=== PATIENT | female | born 1950 | race Caucasian/White ===

== ENCOUNTER 2017-06-11 04:31 | Emergency (ER) | payer OTHER ==
[~2017-06-11] VITALS: Ht 165.1 cm; Wt 113.4 kg
[~2017-06-11 04:31] MED LIST: ACET325C PO; CHOL100013 PO; CHOL10003 PO; FAMO20TA5 PO; FURO40TA4 PO; GLIM1TAB2 PO; HYDR-2868 PO; INSU100V13 SQ; INSU200I4 SQ; LEVO50TA5 PO; LINA5TAB4 PO; MAGN400O7 PO; MAGN400T22 PO; METF500T4 PO; MIRT15TA PO; MULT-208 PO; NICO2GUM42 AD; NYST15CR TP; POLY17PO29 PO; POTA40LI3 PEG; QUET100T4 PO; QUET300T5 PO; QUET400T PO; SENN8.6T99 PO; VALP250S PO; VENTOLIN HFA18 GM INH; [UNRECOGNIZED DRUG - OTHER]
[2017-06-11] MEDS ORDERED: HYDROmorphone 2 MG/ML VIAL IV/SQ PRN (04:45)
[2017-06-11] MEDS ORDERED: METOCLOPRAMIDE HCL 10 MG/2 ML VIAL. IV ONE (04:45)
[2017-06-11] MEDS ORDERED: ONDANSETRON PF 4 MG/2 ML VIAL. IV ONE (04:45)
[2017-06-11] MEDS ORDERED: diphenhydrAMINE 50 MG/ML VIAL IVP ONE (04:45)
--- NOTE | 2017-06-11 04:47 | PHYS DOC ---
Past Medical History Past Medical History: Diabetes-Type II, Hypothyroid, Schizophrenia Additional Past Medical Histor: chronic dvts, obesity, osteoporosis, ams, Past Surgical History: Other Additional Past Surgical Histo: unknown Alcohol Use: None Drug Use: None Social History Narrative: Resides at [facility] Adult General Chief Complaint Chief Complaint: MECHANICAL FALL HPI HPI Patient is a 66 year old female who presents with fall this am. She has had a recent right THR but UNKNOWN WHERE AND WHEN THE REPAIR OCCURRED (it did not occur at [facility]). She also has a right ankle sprain (recently placed in a splint). She got up and fell on her right side. She has right hip wound with chronic draining from the surgical site (per [facility] right). She denies hitting her head; no LOC. Followed by Dr Bridger Knight at Facility. Review of Systems Review of Systems Constitutional: Denies fever or chills Respiratory: Denies cough or shortness of breath GI: Denies abdominal pain, nausea, vomiting, bloody stools or diarrhea : Denies dysuria or hematuria Musculoskeletal: POS right hip pain Neurologic: Denies headache, focal weakness or sensory changes Current Medications Current Medications Current Medications Medications (Trade) Dose Ordered Sig/Zane Start Time Stop Time Status Last Admin Dose Admin Diphenhydramine HCl (Benadryl) 25 mg 1X ONCE 06/11/17 04:45 06/11/17 05:03 DC Hydromorphone HCl (Dilaudid) 0.5 mg PRN Q15MIN PRN 06/11/17 04:45 06/11/17 05:03 DC Metoclopramide HCl (Reglan) 10 mg 1X ONCE 06/11/17 04:45 06/11/17 05:03 DC Ondansetron HCl (Zofran) 4 mg 1X ONCE 06/11/17 04:45 06/11/17 05:16 DC Sodium Chloride 1,000 ml @ 1,000 mls/hr Q1H 06/11/17 05:00 06/11/17 05:16 DC Allergies Allergies Allergies Coded Allergies Type Severity Reaction Last Updated Verified Penicillins Allergy Intermediate 05/18/16 No lithium Allergy Intermediate 05/18/16 Yes Physical Exam Physical Exam Constitutional: Well developed, well nourished, no acute distress, non-toxic appearance. HENT: Normocephalic, atraumatic, bilateral external ears normal, oropharynx moist, no oral exudates, nose normal. Eyes: PERRLA, EOMI, conjunctiva normal, no discharge. Neck: Normal range of motion, no tenderness, supple, no stridor. Cardiovascular:Heart rate regular rhythm, no murmur Lungs & Thorax: Bilateral breath sounds clear to auscultation Abdomen: Bowel sounds normal, soft, no tenderness, no masses, no pulsatile masses. Skin: Warm, dry, no erythema, no rash. Back: No tenderness, no CVA tenderness. Extremities:. distal portion of incision is healing by secondary intention; no active drainage; no bleeding. Pain with movement to the leg but NVI distally. Chronic edema. Neurologic: Alert and oriented X 3, normal motor function, normal sensory function, no focal deficits noted. Current Patient Data Vital Signs Vital Signs Date Time Temp Pulse Resp B/P (MAP) Pulse Ox O2 Delivery O2 Flow Rate FiO2 06/11/17 04:31 98.4 105 18 130/55 (80) 95 Room Air 98.4 Radiology/Procedures Radiology/Procedures XR pelvis/femur: Impression: 1. Right hip hemiarthroplasty without hardware complication. 2. Interval increase in moderate heterotopic ossification around the right hip. 3. An obvious fracture line is not identified however examination is limited due to osseous demineralization. If there is clinical suspicion for fracture, follow-up MRI of the right hip can be considered. Course & Med Decision Making Course & Med Decision Making Evaluated patient. (NOTE lab and meds inadvertently ordered on this patient erroneously and cancelled BEFORE completing). Xray ordered and pending. Care turned over at shift change to Dr Ovalle. XRay negative. Pt is nonambulatory per records at baseline. Will dc back to shelter, f/u with pcp Adam Disclaimer Dragon Disclaimer This electronic medical record was generated, in whole or in part, using a voice recognition dictation system. Departure Departure Impression: Primary Impression: Fall Disposition: 01 HOME, SELF-CARE Condition: GOOD Referrals: DOUG KNIGHT (PCP) Problem Qualifiers Primary Impression: Fall Encounter type: initial encounter Qualified Codes: W19.XXXA - Unspecified fall, initial encounter YENIFER COLINDRES MD Jun 11, 2017 04:47 EMELIA GOMES MD Jun 11, 2017 07:56
[2017-06-11] MEDS ORDERED: IV NORMAL SALINE 1000ML BAG 1,000 ML IV SCH (05:00)
--- NOTE | 2017-06-11 07:16 | RAD ---
Examination: Frontal view the pelvis and 2 views of the right femur History: History of fall, pain. Comparison: 09/08/2016. Findings: Right femoral prosthesis is identified within the acetabulum. There is moderate heterotopic ossification identified around the right hip joint which has increased since prior exam. An obvious fracture line is not identified however the examination is limited due to osseous demineralization. Impression: 1. Right hip hemiarthroplasty without hardware complication. 2. Interval increase in moderate heterotopic ossification around the right hip. 3. An obvious fracture line is not identified however examination is limited due to osseous demineralization. If there is clinical suspicion for fracture, follow-up MRI of the right hip can be considered.
[2017-06-11 09:51] VITALS: BP 149/65
== END 2017-06-11 09:58 | disposition home or self-care (01) ==
LOC: ER 04:31
DX: L76.82 Other postprocedural complications of skin and subcutaneous tissue (principal); F20.9 Schizophrenia, unspecified; E03.9 Hypothyroidism, unspecified; E11.9 Type 2 diabetes mellitus without complications; W18.39XA Other fall on same level, initial encounter; Z96.641 Presence of right artificial hip joint; Y93.89 Activity, other specified; Y99.8 Other external cause status; Y92.89 Other specified places as the place of occurrence of the external cause
CPT/HCPCS: 72170; 73552; 99284

== ENCOUNTER 2017-08-23 12:09 | Inpatient (IN) | payer OTHER ==
[~2017-08-23] VITALS: Ht 165.1 cm; Wt 93.9 kg
[2017-08-23] MEDS ORDERED: IV NORMAL SALINE 1000ML BAG 1,000 ML IV SCH ×2 (12:19→15:15)
[2017-08-23] MEDS ORDERED: IPRATRPIUM/ALBUTEROL 0.5/2.5MG 3 ML NEBU. NEB ONE (12:30)
[2017-08-23] MEDS ORDERED: methylPREDNISolone SOD SUCC PF 125 MG/2 ML VIAL. IV ONE (12:30)
[2017-08-23] MEDS ORDERED: ALBUTEROL SULFATE 2.5 MG/3 ML NEBU. CONT NEB ONE (12:30)
--- NOTE | 2017-08-23 12:37 | PHYS DOC ---
Past Medical History Past Medical History: CHF, Constipation, COPD, Depression, Diabetes-Type II, DVT, GERD, Hypertension, Hypothyroid, Schizophrenia Additional Past Medical Histor: chronic dvts, obesity, osteoporosis, ams, PSEUDOBULBAR AFFECT Past Surgical History: Hip Replacement, Other Additional Past Surgical Histo: unknown Smoking: Cigarettes, Less than 1pk/day Alcohol Use: None Drug Use: None Adult General Chief Complaint Chief Complaint: NEURO SYMPTOMS/DEFICITS [facility] HPI Is a pleasant 67-year-old female who is coming from her correction because of question will slurred state speech and altered mental status. Patient was last seen in her normal state at 9:30 AM this morning. Patient presents after smoking outside about noon with question will slurred speech and confusion. Patient at this time denies any headache, denies any focal neurologic deficit but is very difficult to understand secondary to the slurring of her speech. She is able to follow commands, and interactive at this point she denies any chest pain she seems tachypnea and short of breath but denies any progressive shortness of breath. She does complain of bilateral lower leg pain and swelling specifically in the right lower leg. Patient denies any fevers, chills, URI symptoms, changes in medications. Patient denies any nausea, vomiting, diarrhea or UTI symptoms. She further denies any change in medications or recent antibiotic use. Differential diagnosis: Acute myocardial ischemia, heart failure, cardiac tamponade, bronchospasm, pulmonary embolism, pneumothorax, pulmonary infection i.e. bronchitis or pneumonia, upper airway obstruction, anaphylaxis, aspiration , psychogenic, pulmonary contusion, toxidrome, pneumomediastinum, noncardiogenic pulmonary edema or ARDS, COPD, tuberculosis, cystic fibrosis, asthma, high altitude pulmonary edema, valvular dysfunction, cardiac dysrhythmia , stroke, neuromuscular diseases like myasthenia gravis gravis, ALS, Guillain- Kimball syndrome, metabolic acidosis to include diabetic ketoacidosis, sepsis, and obstructive disorders like massive obesity, her hypoxia especially being outside not under oxygen and smoking they've contributed to her slurred speech and altered mental status. Review of Systems Review of Systems Constitutional: Denies fever or chills [] Eyes: Denies change in visual acuity HENT: Denies nasal congestion or sore throat [] Respiratory: Does have a nonproductive cough and shortness of breath. Cardiovascular: No additional information not addressed in HPI [] GI: Denies abdominal pain, nausea, vomiting, bloody stools or diarrhea [] : Denies dysuria or hematuria [] Musculoskeletal: Denies back pain she complains of lower external pain and swelling Integument: Denies rash or now has redness to her lower legs Neurologic: Denies headache, but does complain generalized weakness and difficulty speaking Endocrine: Denies polyuria or polydipsia [] All other systems were reviewed and found to be within normal limits, except as documented in this note. Current Medications Current Medications Current Medications Medications (Trade) Dose Ordered Sig/Zane Start Time Stop Time Status Last Admin Dose Admin Albuterol Sulfate (Ventolin Neb Soln) 10 mg 1X ONCE 08/23/17 12:30 08/23/17 12:31 DC 08/23/17 12:54 10 MG Albuterol/ Ipratropium (Duoneb) 3 ml 1X ONCE 08/23/17 12:30 08/23/17 12:31 DC 08/23/17 12:54 3 ML Methylprednisolone Sodium Succinate (SOLU-Medrol 125MG VIAL) 125 mg 1X ONCE 08/23/17 12:30 08/23/17 12:31 DC 08/23/17 12:40 125 MG Sodium Chloride 1,000 ml @ 100 mls/hr Q10H 08/23/17 12:19 08/23/17 22:18 08/23/17 12:40 100 MLS/HR Allergies Allergies Allergies Coded Allergies Type Severity Reaction Last Updated Verified Penicillins Allergy Intermediate 05/18/16 No lithium Allergy Intermediate 05/18/16 Yes Physical Exam Physical Exam The vital signs recorded on the chart patient to be tachypnea not hypoxic but she is hypertensive. Constitutional: She is in a disheveled state morbidly obese having difficulty breathing with pale skin nondiaphoretic HENT: Normocephalic, atraumatic, bilateral external ears normal, oropharynx is dry with poor dentition significant nicotine tobacco staining some her teeth and lips.no Oral exudates, nose normal. [] Eyes: PERRLA, EOMI, conjunctiva normal, no discharge. [] Neck: Normal range of motion, no tenderness, supple, no stridor. [] Cardiovascular:Heart rate regular rhythm, no murmur [] Lungs & Thorax: She has decreased breath sounds bilaterally with coarse rhonchi at the bases and wheezes throughout. She has no recurrent retractions or accessory muscle use. Abdomen: Bowel sounds normal, soft, no tenderness, no masses, no pulsatile masses. [] Skin: She has significant erythema specifically to the right lower leg with some soft tissue swelling +2 pitting edema and tenderness to palpation. Back: Specific CVA tenderness. Extremities: She has marked tenderness to palpation over the lower external is bilaterally right greater than left. Neurologic: A stroke scale below. Psychologic: She is affect is somewhat blunted she is somewhat slow to respond all most seems sedate secondary to possible medications Since initial stroke score based on weakness in upper and lower extremities and difficulty understanding spoken words is a 9 1a. Level of consciousness: 0 = Alert; keenly responsive. 1 = Not alert; but arousable by minor stimulation to obey, answer, or respond. 2 = Not alert; requires repeated stimulation to attend, or is obtunded and requires strong or painful stimulation to make movements (not stereotyped). 3 = Responds only with reflex motor or autonomic effects or totally unresponsive , flaccid, and areflexic. 1b. LOC questions: 0 = Answers both questions correctly. 1 = Answers one question correctly. 2 = Answers neither question correctly. 1c. LOC commands: 0 = Performs both tasks correctly. 1 = Performs one task correctly. 2 = Performs neither task correctly. 2. Best gaze: 0 = Normal. 1 = Partial gaze palsy; gaze is abnormal in one or both eyes, but forced deviation or total gaze paresis is not present. 2 = Forced deviation, or total gaze paresis not overcome by the oculocephalic maneuver. 3. Visual: 0 = No visual loss. 1 = Partial hemianopia. 2 = Complete hemianopia. 3 = Bilateral hemianopia (blind including cortical blindness). 4. Facial palsy: 0 = Normal symmetrical movements. 1 = Minor paralysis (flattened nasolabial fold, asymmetry on smiling). 2 = Partial paralysis (total or near-total paralysis of lower face). 3 = Complete paralysis of one or both sides (absence of facial movement in the upper and lower face). 5. Motor arm: 0 = No drift; limb holds 90 (or 45) degrees for full 10 seconds. 1 = Drift; limb holds 90 (or 45) degrees, but drifts down before full 10 seconds ; does not hit bed or other support. 2 = Some effort against gravity; limb cannot get to or maintain (if cued) 90 ( or 45) degrees, drifts down to bed, but has some effort against gravity. 3 = No effort against gravity; limb falls. 4 = No movement. UN = Amputation or joint fusion, explain: 5a. Left arm 5b. Right arm 4 pts 6. Motor le = No drift; leg holds 30-degree position for full 5 seconds. 1 = Drift; leg falls by the end of the 5-second period but does not hit bed. 2 = Some effort against gravity; leg falls to bed by 5 seconds, but has some effort against gravity. 3 = No effort against gravity; leg falls to bed immediately. 4 = No movement. UN = Amputation or joint fusion, explain: 6a. Left leg 6b. Right leg 4pts 7. Limb ataxia: 0 = Absent. 1 = Present in one limb. 2 = Present in two limbs. UN = Amputation or joint fusion 8. Sensory: 0 = Normal; no sensory loss. 1 = Xqde-ly-fqzaidps sensory loss; patient feels pinprick is less sharp or is dull on the affected side; or there is a loss of superficial pain with pinprick , but patient is aware of being touched. 2 = Severe to total sensory loss; patient is not aware of being touched in the face, arm, and leg. 9. Best language: 0 = No aphasia; normal. 1 = Pbkn-uy-iyejokin aphasia; some obvious loss of fluency or facility of comprehension, without significant limitation on ideas expressed or form of expression. Reduction of speech and/or comprehension, however, makes conversation about provided materials difficult or impossible. For example, in conversation about provided materials, examiner can identify picture or naming card content from patient's response. 2 = Severe aphasia; all communication is through fragmentary expression; great need for inference, questioning, and guessing by the listener. Range of information that can be exchanged is limited; listener carries burden of communication. Examiner cannot identify materials provided from patient response. 3 = Mute, global aphasia; no usable speech or auditory comprehension. 10. Dysarthria: 0 = Normal. 1 = Darb-xq-evtlqivm dysarthria; patient slurs at least some words and, at worst , can be understood with some difficulty. 2 = Severe dysarthria; patient's speech is so slurred as to be unintelligible in the absence of or out of proportion to any dysphasia, or is mute/anarthric. UN = Intubated or other physical barrier, explain: 11. Extinction and inattention (formerly neglect): 0 = No abnormality. 1 = Visual, tactile, auditory, spatial, or personal inattention or extinction to bilateral simultaneous stimulation in one of the sensory modalities. 2 = Profound rasheed-inattention or extinction to more than one modality; does not recognize own hand or orients to only one side of space. Current Patient Data Vital Signs Vital Signs Date Time Temp Pulse Resp B/P (MAP) Pulse Ox O2 Delivery O2 Flow Rate FiO2 08/23/17 12:58 100 Nasal Cannula 3.0 08/23/17 12:15 97.6 86 20 167/69 (101) 97.6 Lab Values Laboratory Tests Test 08/23/17 12:18 08/23/17 12:30 Glucose (Fingerstick) 215 mg/dL (70-99) H White Blood Count 6.3 x10^3/uL (4.0-11.0) Red Blood Count 3.56 x10^6/uL (3.50-5.40) Hemoglobin 9.6 g/dL (12.0-15.5) L Hematocrit 31.1 % (36.0-47.0) L Mean Corpuscular Volume 87 fL (79-100) Mean Corpuscular Hemoglobin 27 pg (25-35) Mean Corpuscular Hemoglobin Concent 31 g/dL (31-37) Red Cell Distribution Width 18.1 % (11.5-14.5) H Platelet Count 260 x10^3/uL (140-400) Erythrocyte Sedimentation Rate 26 (0-25) H Prothrombin Time 13.7 SEC (11.7-14.0) Prothrombin Time INR 1.1 (0.8-1.1) PTT 36 SEC (24-38) Sodium Level 140 mmol/L (136-145) Potassium Level 4.5 mmol/L (3.5-5.1) Chloride Level 103 mmol/L (98-107) Carbon Dioxide Level 31 mmol/L (21-32) Anion Gap 6 (6-14) Blood Urea Nitrogen 27 mg/dL (7-20) H Creatinine 1.4 mg/dL (0.6-1.0) H Estimated GFR (Cockcroft-Gault) 37.6 Glucose Level 222 mg/dL (70-99) H Lactic Acid Level 2.0 mmol/L (0.4-2.0) Calcium Level 10.0 mg/dL (8.5-10.1) Magnesium Level 2.1 mg/dL (1.8-2.4) Total Bilirubin 0.2 mg/dL (0.2-1.0) Direct Bilirubin 0.1 mg/dL (0.0-0.2) Aspartate Amino Transferase (AST) 5 U/L (15-37) L Alanine Aminotransferase (ALT) 11 U/L (14-59) L Alkaline Phosphatase 100 U/L (46-116) Creatine Kinase 16 U/L (26-192) L Creatine Kinase MB (Mass) < 0.5 ng/mL (0.0-3.6) Creatine Kinase MB Relative Index % (0-4) Troponin I Quantitative < 0.017 ng/mL (0.000-0.055) C-Reactive Protein, Quantitative 50.0 mg/L (0-3.3) H XJ-Iwb-N-Type Natriuretic Peptide 637 pg/mL (0-124) H Total Protein 7.5 g/dL (6.4-8.2) Albumin 2.8 g/dL (3.4-5.0) L Lipase 53 U/L (73-393) L Thyroid Stimulating Hormone (TSH) 2.253 uIU/mL (0.358-3.74) Laboratory Tests 08/23/17 12:30 Laboratory Tests 08/23/17 12:30 EKG EKG [] Radiology/Procedures Radiology/Procedures [] [facility] [address] [place] [address] IMAGING REPORT Signed PATIENT: DO SHI ACCOUNT: [id number] : 1950 LOCATION: ER AGE: 67 SEX: F EXAM STATUS: REG ER ORD. PHYSICIAN: AYUSH GRAY MD REASON: ams PROCEDURE: PORTABLE CHEST 1V Examination: Single frontal view the chest History: History of altered mental status. Comparison: 09/08/2016. Findings: Low lung volumes and technique accentuates heart size and pulmonary vascularity. Mild airspace opacity identified in the right lung base likely atelectasis or infiltrate. Impression: Mild airspace opacity identified in the right lung base likely atelectasis or infiltrate. Follow-up to resolution. DICTATED and SIGNED BY: ESTEBAN MARROQUIN MD DATE: 08/23/17 1300 CC: AYUSH GRAY MD; DOUG KNIGHT ~ Course & Med Decision Making Course & Med Decision Making Pertinent Labs and Imaging studies reviewed. (See chart for details) []Initially presents as a diabetic with altered mental status and question of slurred speech. There is a questionable timetable of 9:30 versus 11:30. Given the fact that no one actually saw her last well until 9:30 AM this morning that' s the starting point of our timetable. Patient is Imer at the 3 hour window almost upon arrival. Patient's neurologic status makes it somewhat difficult presented to ascertain answers to specific questions and somewhat difficult examination upon arrival. Patient's stroke scale initially was 9 based on weakness in the upper and lower external is which may be from debility and generalized fatigue or cannot be ruled out. Stroke evaluation was initiated. Because patient was mildly tachypnea and wheezing on exam patient also had blood cultures, lactic acid completed. I we'll aggressively treat her COPD and respiratory compromise which may contribute to her symptoms. My shortness breath differential was considered upon arrival as listed in the history. KG completed upon arrival read by me at 12:28 PM demonstrates heart rate of 80 there is a P-wave every QRS [place] interval is short at 90 there is a perceivable delta wave although patient's QRS width is 98 QTC is 419 is normal. We initially considered TPN arrival patient patient's story but unfortunately not having a firm time of presentation patient presented at the 3 hour window. She did not have have any other exclusion criteria listed below: TPA exclusion criteria include Inclusion criteria include: Onset of symptoms less than 3 hours from the beginning of treatment diagnosis of an ischemic stroke causing measurable neurologic deficit Age or with an 19 Exclusion criteria: Recent intracranial or spinal surgery or significant head trauma or prior stroke within the prior 3 months Symptoms suggestive of a subarachnoid hemorrhage History of present intercranial hemorrhage, intracranial neoplasm or AV malformation or aneurysm Active internal bleeding Sustained systolic blood pressure greater than 185 systolic, 110 diastolic Blood glucose constitutional less than 50 Active bleeding diathesis Arterial puncture at a noncompressible site with the previous [address] demonstrates acute ischemic infarct evidence of early edema, mass effect, large infarct Patient or family refusal Relative exclusion criteria include: IV thrombolyzes at nights at Hospital Impression acute myocardial infarct with the previous 3 months or acute pericarditis Rapidly improving or minor symptoms clearing spontaneously Known or suspected Seizure at onset with postictal residual neurologic impairments Life expectancy less than 1 year or severe comorbidities The care team was unable to determine eligibility Major surgery or serious trauma within the previous 14 days Subacute bacterial endocarditis Recent gastrointestinal or UTI hemorrhage within the last 21 days Visit was unclear about patient's time of arrival and time of symptom onset and given her history and unreliable exam patient was excluded from TPA consideration. Patient tells me that their symptoms given during CC are improved. We reviewed labs and radiology reports with at the bedside and patient's chest x-ray looks like it has an infiltrate at the right lower lung. Patient has improved lung sounds and is mentating better now with treatments. I believe patient may be sending with mild hypoxia and increased metabolic demand with a lung infection. Her lactic acid is normal, her CBC is unremarkable, blood cultures been completed though and she'll be given a course of steroids, antibiotics and fluids. She is not septic at this time but given altered mental status she may be considered septic saw I will treat her appropriately with respiratory for source of infection. She will receive Rocephin and azithromycin Tnt Powder Worker note: Dr. Wheeler Tnt Powder Worker called at of the service paged at 2:15 PM Consult called back at 2:15 PM Discussed the case I presented and they agreed with admission. Time of acceptance 2:15 pm patient does demonstrate some slight renal insufficiency with BUNs of 27 and cranial 1.4. patient MS has improved, patient is no longer dyspneic, patient is not febrile. Dragon Disclaimer Dragon Disclaimer This electronic medical record was generated, in whole or in part, using a voice recognition dictation system. Departure Departure Impression: Primary Impression: COPD exacerbation Additional Impressions: Right lower lobe pneumonia Generalized weakness Altered mental status Disposition: ADMITTED INPATIENT Admitting Physician: Donnie Wheeler Condition: GUARDED Referrals: DOUG KNIGHT (PCP) Problem Qualifiers AYUSH GRAY MD Aug 23, 2017 12:37
[2017-08-23 12:46] LABS: HEMATOCRIT 31.1 % (36.0-47.0); HEMOGLOBIN 9.6 g/dL (12.0-15.5); RED BLOOD COUNT 3.56 x10^6/uL (3.50-5.40); RED CELL DISTRIBUTION WIDTH 18.1 % (11.5-14.5); WHITE BLOOD COUNT 6.3 x10^3/uL (4.0-11.0)
--- NOTE | 2017-08-23 12:51 | EKG ---
[facility] [address] [place] [address] Test Date: 2017-08-23 Test Time: 12:20:18 Pat Name: DO SHI Department: Room: Gender: F Court Bailiff: : 1950 Requested By: AYUSH GRAY Order Number: [id number] Reading MD: Ck Matamoros MD Measurements Intervals Central Rate: 80 P: -139 RI: 90 QRS: 29 QRSD: 98 T: 51 QT: 360 QTc: 419 Interpretive Statements SINUS RHYTHM NON-SPECIFIC ST/T CHANGES Electronically Signed On 08-30-2017 14:37:49 CIGAR MAKING MACHINE SUPERVISOR by Ck Matamoros MD
[2017-08-23 12:55] LABS: CREATININE 1.4 mg/dL (0.6-1.0); GFR 37.6; POTASSIUM 4.5 mmol/L (3.5-5.1)
--- NOTE | 2017-08-23 12:56 | RAD ---
CT head without contrast History: CT code stroke, slurred speech. Comparison: 05/21/2016. Procedure: Axial images are obtained of the head from the skull base through the vertex without IV contrast. Findings: Mild bilateral periventricular white matter hypodensities likely chronic small vessel ischemic disease. The ventricles and sulci are normal for the patient's age. No mass-effect, intracranial mass, midline shift, hemorrhage or obvious acute infarction is identified. Basilar cisterns are patent. Bone windows demonstrate no significant calvarial abnormality. The visualized paranasal sinuses appear clear. Impression: 1. No acute intracranial process. Report called to ER physician at time of dictation. PQRS Compliance Statement: One or more of the following individualized dose reduction techniques were utilized for this examination: 1. Automated exposure control 2. Adjustment of the mA and/or kV according to patient size 3. Use of iterative reconstruction technique
[2017-08-23 13:01] LABS: ALBUMIN 2.8 g/dL (3.4-5.0); DIRECT BILIRUBIN 0.1 mg/dL (0.0-0.2); MAGNESIUM 2.1 mg/dL (1.8-2.4); TOTAL BILIRUBIN 0.2 mg/dL (0.2-1.0); TOTAL PROTEIN 7.5 g/dL (6.4-8.2)
--- NOTE | 2017-08-23 13:06 | RAD ---
Examination: Single frontal view the chest History: History of altered mental status. Comparison: 09/08/2016. Findings: Low lung volumes and technique accentuates heart size and pulmonary vascularity. Mild airspace opacity identified in the right lung base likely atelectasis or infiltrate. Impression: Mild airspace opacity identified in the right lung base likely atelectasis or infiltrate. Follow-up to resolution.
[2017-08-23 13:10] LABS: INR 1.1 (0.8-1.1); PROTHROMBIN TIME PATIENT 13.7 SEC (11.7-14.0)
[2017-08-23 13:12] LABS: CREATINE KINASE 16 U/L (26-192)
[2017-08-23 13:13] LABS: CKMB MASS < 0.5 ng/mL (0.0-3.6)
--- NOTE | 2017-08-23 14:48 | RAD ---
Bilateral lower extremity venous ultrasound, 08/23/2017: History: Leg pain and swelling Duplex evaluation of the deep veins in the lower extremities was performed including grayscale, color-flow and spectral Doppler analysis. The femoral and popliteal veins demonstrate normal compressibility and normal responses to distal augmentation maneuvers. Color imaging of those vessels shows no evidence of intraluminal clot. The visualized deep veins in both calves are patent. IMPRESSION: There is no sonographic evidence of deep vein thrombosis in either lower extremity.
[2017-08-23] MEDS ORDERED: IV NORMAL SALINE 1000ML BAG 1,000 ML IV STA (14:54)
[2017-08-23] MEDS ORDERED: ONDANSETRON PF 4 MG/2 ML VIAL. IV PRN (15:00)
[2017-08-23] MEDS ORDERED: fentaNYL PF VIAL 100 MCG/2 ML VIAL IV PRN (15:00)
[2017-08-23] MEDS ORDERED: ACETAMINOPHEN 325 MG TABLET. PO PRN (15:00)
[2017-08-23] MEDS ORDERED: AZITHRMYCN 500MG IVPB FOR OMNI 250 ML IV ONE (15:15)
[2017-08-23 15:29] LABS: BILIRUBIN,URINE NEGATIVE (NEG); GLUCOSE,URINE NEGATIVE (NEG); NITRITE,URINE NEGATIVE (NEG); PROTEIN,URINE NEGATIVE (NEG-TRACE); UROBILINOGEN,URINE 0.2 mg/dL (0.2 mg/dL)
[2017-08-23 15:32] LABS: BARBITURATES NEG (NEG); BENZODIAZEPINES NEG (NEG); CANNABINOIDS NEG (NEG); COCAINE NEG (NEG); METHADONE NEG (NEG); OPIATES NEG (NEG); PHENCYCLIDINE NEG (NEG)
[2017-08-23 15:39] LABS: BACTERIA,URINE 0 /HPF (0-FEW); RBC,URINE 0 /HPF (0-2)
[2017-08-23] MEDS ORDERED: IPRATRPIUM/ALBUTEROL 0.5/2.5MG 3 ML NEBU. NEB SCH (16:00)
--- NOTE | 2017-08-23 16:45 | HP ---
ADMIT DATE: 08/23/2017 CHIEF COMPLAINT: Mental status change, slurred speech, wheezing. HISTORY OF PRESENT ILLNESS: The patient is a pleasant 67-year-old female who has schizophrenia, bipolar. Her sister states sometimes, she gets too much medication. We suspect that is what has happened here. She has got mental status change. While in the ER, though she is somewhat hypoxic, appears to have COPD exacerbation as well. I discussed the case with ER physician. We are going to admit the patient and consult Pulmonary. PAST MEDICAL HISTORY: Previous bouts of mental status change from accidental overdosing on her meds, CHF, constipation, psychiatric issues, depression, bipolar, schizoaffective disorder, schizophrenia, hypothyroidism, hypertension, GERD, DVT, COPD, chronic osteoporosis, pseudobulbar affect, hip replacement, tobacco abuse. ALLERGIES: PENICILLIN AND LITHIUM. FAMILY HISTORY: Hypertension. SOCIAL HISTORY: I believe she lives at a facility. She does not drink or take drugs. She does smoke. MEDICATIONS: Reviewed. REVIEW OF SYSTEMS: Unobtainable, the patient is too sleepy and confused. PHYSICAL EXAMINATION: VITAL SIGNS: Temperature afebrile, pulse 74, respirations 18, blood pressure 142/90. GENERAL: She is sleeping. Has a facemask oxygen on. Her sister is present. She is very good support for her. HEART: Tachycardic, S1, S2. LUNGS: Very coarse. ABDOMEN: Soft, obese. EXTREMITIES: 1-2+ edema. ENDOCRINE: No thyromegaly. LYMPHATICS: No cervical nodes. HEMATOPOIETIC: No bruising. LABORATORY DATA: White count 16, hemoglobin 9, platelets 260. Electrolytes are pending. Troponin is 0. INR 1. Drug screen negative. Urinalysis, moderate leukocyte esterase, 5-[address] of the head is negative for acute events. ASSESSMENT AND PLAN: Mental status change with incidental finding of a urinary tract infection and chronic obstructive pulmonary disease exacerbation and respiratory failure. The patient has been admitted. We will consult Pulmonary Medicine, IV steroids, IV antibiotics, breathing treatments, oxygen, frequent labs, continue home medicines. PROGNOSIS: Guarded. I did discuss the patient's code status with her sister. She would like to have a DNR for now. We will adhere to her wishes. NIAL K. CASTLE, DO DR: TIM/maik JOB#: [id number] / [id number]
[2017-08-23 17:17] VITALS: BP 115/61
[2017-08-23] MEDS ORDERED: DEXTROSE 50% 25 GM / 50ML DISP.SYRIN. IV PRN (17:30)
--- NOTE | 2017-08-23 17:51 | PDOC ---
PULMONARY PROGRESS NOTES Vitals Vital Signs Date Time Temp Pulse Resp B/P (MAP) Pulse Ox O2 Delivery O2 Flow Rate FiO2 08/23/17 17:17 97.3 85 22 115/61 (79) 97 Nasal Cannula 3.0 97.3 Labs Laboratory Tests Test 08/23/17 12:18 08/23/17 12:30 08/23/17 15:10 08/23/17 17:02 Glucose (Fingerstick) 215 mg/dL (70-99) 114 mg/dL (70-99) White Blood Count 6.3 x10^3/uL (4.0-11.0) Red Blood Count 3.56 x10^6/uL (3.50-5.40) Hemoglobin 9.6 g/dL (12.0-15.5) Hematocrit 31.1 % (36.0-47.0) Mean Corpuscular Volume 87 fL (79-100) Mean Corpuscular Hemoglobin 27 pg (25-35) Mean Corpuscular Hemoglobin Concent 31 g/dL (31-37) Red Cell Distribution Width 18.1 % (11.5-14.5) Platelet Count 260 x10^3/uL (140-400) Erythrocyte Sedimentation Rate 26 (0-25) Prothrombin Time 13.7 SEC (11.7-14.0) Prothromb Time International Ratio 1.1 (0.8-1.1) Activated Partial Thromboplast Time 36 SEC (24-38) Sodium Level 140 mmol/L (136-145) Potassium Level 4.5 mmol/L (3.5-5.1) Chloride Level 103 mmol/L (98-107) Carbon Dioxide Level 31 mmol/L (21-32) Anion Gap 6 (6-14) Blood Urea Nitrogen 27 mg/dL (7-20) Creatinine 1.4 mg/dL (0.6-1.0) Estimated GFR (Cockcroft-Gault) 37.6 Glucose Level 222 mg/dL (70-99) Lactic Acid Level 2.0 mmol/L (0.4-2.0) Calcium Level 10.0 mg/dL (8.5-10.1) Magnesium Level 2.1 mg/dL (1.8-2.4) Total Bilirubin 0.2 mg/dL (0.2-1.0) Direct Bilirubin 0.1 mg/dL (0.0-0.2) Aspartate Amino Transf (AST/SGOT) 5 U/L (15-37) Alanine Aminotransferase (ALT/SGPT) 11 U/L (14-59) Alkaline Phosphatase 100 U/L (46-116) Creatine Kinase 16 U/L (26-192) Creatine Kinase MB (Mass) < 0.5 ng/mL (0.0-3.6) Creatine Kinase MB Relative Index % (0-4) Troponin I Quantitative < 0.017 ng/mL (0.000-0.055) C-Reactive Protein, Quantitative 50.0 mg/L (0-3.3) PD-Qaa-P-Type Natriuretic Peptide 637 pg/mL (0-124) Total Protein 7.5 g/dL (6.4-8.2) Albumin 2.8 g/dL (3.4-5.0) Lipase 53 U/L (73-393) Thyroid Stimulating Hormone (TSH) 2.253 uIU/mL (0.358-3.74) Urine Collection Type U cath Urine Color Yellow Urine Clarity Clear Urine pH 6.0 Urine Specific [place] <=1.005 Urine Protein Negative mg/dL (NEG-TRACE) Urine Glucose (UA) Negative mg/dL (NEG) Urine Ketones (Stick) Negative mg/dL (NEG) Urine Blood Negative (NEG) Urine Nitrite Negative (NEG) Urine Bilirubin Negative (NEG) Urine Urobilinogen Dipstick 0.2 mg/dL (0.2 mg/dL) Urine Leukocyte Esterase Moderate (NEG) Urine RBC 0 /HPF (0-2) Urine WBC 5-10 /HPF (0-4) Urine Transitional Epithelial Cells Mod /LPF Urine Bacteria 0 /HPF (0-FEW) Urine Hyaline Casts Few /HPF Urine Opiates Screen Neg (NEG) Urine Methadone Screen Neg (NEG) Urine Barbiturates Neg (NEG) Urine Phencyclidine Screen Neg (NEG) Urine Amphetamine/Methamphetamine Neg (NEG) Urine Benzodiazepines Screen Neg (NEG) Urine Cocaine Screen Neg (NEG) Urine Cannabinoids Screen Neg (NEG) Urine Ethyl Alcohol Neg (NEG) Laboratory Tests Test 08/23/17 12:18 08/23/17 12:30 08/23/17 15:10 08/23/17 17:02 Glucose (Fingerstick) 215 mg/dL (70-99) 114 mg/dL (70-99) White Blood Count 6.3 x10^3/uL (4.0-11.0) Red Blood Count 3.56 x10^6/uL (3.50-5.40) Hemoglobin 9.6 g/dL (12.0-15.5) Hematocrit 31.1 % (36.0-47.0) Mean Corpuscular Volume 87 fL (79-100) Mean Corpuscular Hemoglobin 27 pg (25-35) Mean Corpuscular Hemoglobin Concent 31 g/dL (31-37) Red Cell Distribution Width 18.1 % (11.5-14.5) Platelet Count 260 x10^3/uL (140-400) Erythrocyte Sedimentation Rate 26 (0-25) Prothrombin Time 13.7 SEC (11.7-14.0) Prothromb Time International Ratio 1.1 (0.8-1.1) Activated Partial Thromboplast Time 36 SEC (24-38) Sodium Level 140 mmol/L (136-145) Potassium Level 4.5 mmol/L (3.5-5.1) Chloride Level 103 mmol/L (98-107) Carbon Dioxide Level 31 mmol/L (21-32) Anion Gap 6 (6-14) Blood Urea Nitrogen 27 mg/dL (7-20) Creatinine 1.4 mg/dL (0.6-1.0) Estimated GFR (Cockcroft-Gault) 37.6 Glucose Level 222 mg/dL (70-99) Lactic Acid Level 2.0 mmol/L (0.4-2.0) Calcium Level 10.0 mg/dL (8.5-10.1) Magnesium Level 2.1 mg/dL (1.8-2.4) Total Bilirubin 0.2 mg/dL (0.2-1.0) Direct Bilirubin 0.1 mg/dL (0.0-0.2) Aspartate Amino Transf (AST/SGOT) 5 U/L (15-37) Alanine Aminotransferase (ALT/SGPT) 11 U/L (14-59) Alkaline Phosphatase 100 U/L (46-116) Creatine Kinase 16 U/L (26-192) Creatine Kinase MB (Mass) < 0.5 ng/mL (0.0-3.6) Creatine Kinase MB Relative Index % (0-4) Troponin I Quantitative < 0.017 ng/mL (0.000-0.055) C-Reactive Protein, Quantitative 50.0 mg/L (0-3.3) BV-Jnc-T-Type Natriuretic Peptide 637 pg/mL (0-124) Total Protein 7.5 g/dL (6.4-8.2) Albumin 2.8 g/dL (3.4-5.0) Lipase 53 U/L (73-393) Thyroid Stimulating Hormone (TSH) 2.253 uIU/mL (0.358-3.74) Urine Collection Type U cath Urine Color Yellow Urine Clarity Clear Urine pH 6.0 Urine Specific [place] <=1.005 Urine Protein Negative mg/dL (NEG-TRACE) Urine Glucose (UA) Negative mg/dL (NEG) Urine Ketones (Stick) Negative mg/dL (NEG) Urine Blood Negative (NEG) Urine Nitrite Negative (NEG) Urine Bilirubin Negative (NEG) Urine Urobilinogen Dipstick 0.2 mg/dL (0.2 mg/dL) Urine Leukocyte Esterase Moderate (NEG) Urine RBC 0 /HPF (0-2) Urine WBC 5-10 /HPF (0-4) Urine Transitional Epithelial Cells Mod /LPF Urine Bacteria 0 /HPF (0-FEW) Urine Hyaline Casts Few /HPF Urine Opiates Screen Neg (NEG) Urine Methadone Screen Neg (NEG) Urine Barbiturates Neg (NEG) Urine Phencyclidine Screen Neg (NEG) Urine Amphetamine/Methamphetamine Neg (NEG) Urine Benzodiazepines Screen Neg (NEG) Urine Cocaine Screen Neg (NEG) Urine Cannabinoids Screen Neg (NEG) Urine Ethyl Alcohol Neg (NEG) Medications Active Scripts Medications Dose Route/Sig Max Daily Dose Days Date Category Tresiba Flextouch U-200 (Insulin Degludec) 200 Unit/1 Ml Insuln.pen 20 Unit SQ HS 09/08/16 Reported Vitamin D3 (Cholecalciferol (Vitamin D3)) 1,000 Unit Tablet 1,000 Unit PO 09/08/16 Reported Famotidine 20 Mg Tablet 20 Mg PO HS 09/08/16 Reported [Compound ABH ] 05/19/16 Reported Vitamin D (Cholecalciferol (Vitamin D3)) 1,000 Unit Capsule 1 Cap PO DAILY 05/19/16 Reported Seroquel (Quetiapine Fumarate) 100 Mg Tablet 1 Tab PO DAILY 05/19/16 Reported Senokot (Sennosides) 8.6 Mg Tablet 1 Tab PO DAILY 05/19/16 Reported Remeron (Mirtazapine) 15 Mg Tablet 1 Tab PO QHS 05/19/16 Reported Quetiapine Fumarate 400 Mg Tablet 400 Mg PO HS 05/19/16 Reported Seroquel (Quetiapine Fumarate) 300 Mg Tablet 1 Tab PO DAILY 05/19/16 Reported Potassium Chloride Oral Liquid (Potassium Chloride) 40 Meq/15 Ml Liquid 40 Meq PEG DAILY 05/19/16 Reported Nystatin 15 Gm Cream..g. 1 Romelia TP BID 05/19/16 Reported Multi-Day Vitamins (Multivitamin) 1 Each Tablet 1 Tab PO DAILY 05/19/16 Reported Miralax (Polyethylene Glycol 3350) 17 Gm Powd.pack 1 Packet PO PRN DAILY PRN 05/19/16 Reported Metformin Hcl 500 Mg Tablet 1 Tab PO BID 05/19/16 Reported Mag-Oxide (Magnesium Oxide) 400 Mg Tablet 1 Tab PO DAILY 05/19/16 Reported Milk Of Magnesia (Magnesium Hydroxide) 400 Mg/5 Ml Oral.susp 30 Ml PO PRN DAILY PRN 05/19/16 Reported Levothyroxine Sodium 50 Mcg Tablet 1 Tab PO DAILY 05/19/16 Reported Hydralazine Hcl 25 Mg Tablet 1 Tab PO BID 05/19/16 Reported Glimepiride 1 Mg Tablet 1 Tab PO BID 05/19/16 Reported Furosemide 40 Mg Tablet 40 Mg PO BID 05/19/16 Reported Depakene (Valproate Sodium) 250 Mg/5 Ml Solution 1,000 Mg PO BID 05/19/16 Reported Ventolin Hfa Inhaler (Albuterol Sulfate) 18 Gm Hfa.aer.ad 2 Puff INH BID 05/19/16 Reported Acetaminophen 325 Mg Capsule 650 Mg PO PRN Q6HRS PRN 05/19/16 Reported Impression . DICTATED WILL CHECK ABG MAY NEED BIPAP HOLD ANTIPSYCH MED SEE ORDERS POSSIBLE PNEUMONIA NATHAN ROMERO MD Aug 23, 2017 17:51
[2017-08-23] MEDS: IV NORMAL SALINE 1000ML BAG 1,000 ML IV SCH (17:58)
[2017-08-23 18:05] LABS: HCO3 ABG 31 mmol/L (21-28); PO2 ABG 72 mmHg (65-108); SAT O2 ABG 91 % (92-99)
[2017-08-23 18:11] LABS: FIO2 ABG 32; PCO2 ABG 83 mmHg (35-46)
[2017-08-23] MEDS ORDERED: INFLUENZA VAX SCREEN BY RX. MC PRN (18:45)
[2017-08-23 19:00] VITALS: BP 119/59
[2017-08-23] MEDS ORDERED: IPRA3AMP NEB (19:59)
[2017-08-23] MEDS ORDERED: POTASSIUM CHLO10 MEQ PO (19:59)
[2017-08-23] MEDS ORDERED: NYST1POW2 (19:59)
[2017-08-23] MEDS ORDERED: INSU100V13 SQ (19:59)
[2017-08-23] MEDS: IPRATRPIUM/ALBUTEROL 0.5/2.5MG 3 ML NEBU. NEB SCH (19:59)
[2017-08-23] MEDS ORDERED: TRAM50TA PO (19:59)
[2017-08-23] MEDS ORDERED: INSU100I17 SQ ×2 (19:59)
[2017-08-23] MEDS ORDERED: OMEG1CAP38 PO (19:59)
[2017-08-23] MEDS ORDERED: SITA50TA PO (19:59)
[2017-08-23] MEDS ORDERED: FURO20TA3 PO (19:59)
[2017-08-23] MEDS ORDERED: MELA3TAB2 PO (19:59)
[2017-08-23] MEDS ORDERED: INSULIN DETEMIR 300 UNITS/3 ML INSULN.PEN. SQ ONE (21:00)
[2017-08-23] MEDS: methylPREDNISolone SOD SUCC PF 40 MG/ML VIAL. IV SCH (21:35)
[2017-08-23] MEDS: NICOTINE 21MG PATCH. TD SCH (22:37)
[2017-08-23 23:00] VITALS: BP 176/70
--- NOTE | 2017-08-24 02:19 | CONS ---
DATE OF CONSULTATION: 08/23/2017 ATTENDING PHYSICIAN: Dr. Donnie Wheeler. CONSULTING PHYSICIAN: Nathan Roemro MD. REASON FOR CONSULTATION: The patient is seen in pulmonary consultation at the request of Dr. Wheeler for increasing shortness of air. HISTORY OF PRESENT ILLNESS: The patient is a 67-year-old that I am unable to obtain any meaningful history. She presented [facility] Room from jail according to the current medical records with slurred speech and altered mental status. She was last seen early in the morning 9:30 a.m. in a normal state. The patient presented after smoking outside around noon. She had some slurred speech, confusion. Denied any headaches. No focal neurological deficits. The patient was seen in the Emergency Room. She was admitted. I was asked to see her in consultation. Part of her workup included lower extremity venous Dopplers. There was no evidence of deep venous thrombosis. She had chest x-ray, which revealed a right lung atelectasis and air space opacity. She had a CT head which revealed no acute intracranial process. I reviewed her labs. White count was normal. INR was 1.1. Electrolytes: Sodium was normal. BUN was elevated, creatinine was elevated. AST and ALT were noted. C-reactive protein was high. Albumin was markedly low. Lipase was low. PAST MEDICAL HISTORY: CHF, COPD, depression, type 2 diabetes, DVT, gastroesophageal reflux, hypertension, hypothyroidism, schizophrenia. PAST SURGICAL HISTORY: Hip replacement. SOCIAL HISTORY: She smokes, lives at a jail. Medication list from the jail was reviewed. HOME MEDICATIONS: Include acetaminophen, albuterol, vitamin D, Pepcid, furosemide, glyburide, hydralazine, insulin, levothyroxine, magnesium, metformin, Remeron, potassium, Seroquel, Senokot, Depakote. CURRENT MEDICATION: List was likewise reviewed. She was given Zithromax and Rocephin in the Emergency Department, nebulized treatments. PHYSICAL EXAMINATION: GENERAL: The patient was snoring. She was on 2 liters. She did not appear to be septic. She was sleepy. She moved her both upper extremities to sternal rubs, otherwise no significant response to verbal stimuli. HEENT: Eyes, the sclerae were nonicteric. NECK: Jugular venous distention could not be assessed secondary to body habitus. CHEST: Full expansion. LUNGS: Poor airway flow with no wheezes. CARDIOVASCULAR: Regular rate and rhythm with S1, S2, no S3. ABDOMEN: Soft, nontender, nondistended. EXTREMITIES: No clubbing, cyanosis, some edema. NEUROLOGIC: The patient responded to painful stimuli. Labs as indicated above. IMPRESSION: 1. Acute respiratory failure, present upon admission. 2. Acute suspect combination of toxic and metabolic encephalopathy, present upon admission. 3. History of schizophrenia. 4. Abnormal x-ray compatible with pneumonia, present upon admission. 5. Severe protein malnutrition, present upon admission. 6. Negative urine drug screen. 7. Chronic anemia. 8. Acute kidney failure. PLAN: 1. We will initiate empiric antibiotics, IV FLUIDS. 2. Obtain arterial blood gas. 3. The patient may require BiPAP and transfer to the intensive care unit. We will decide once the arterial blood gases have been performed. 4. Hold antipsychotic medications for now. 5. If no improvement, consult Neurology. I do appreciate the privilege in sharing this patient's care. NATHAN ROMERO MD DR: KENDALL/maik JOB#: [id number] / [id number]
[2017-08-24 03:00] VITALS: BP 168/60
[2017-08-24] MEDS: IPRATRPIUM/ALBUTEROL 0.5/2.5MG 3 ML NEBU. NEB SCH ×7 (04:00→23:15)
[2017-08-24 07:00] VITALS: BP 114/49
[2017-08-24] MEDS: IV NORMAL SALINE 1000ML BAG 1,000 ML IV SCH (07:50)
[2017-08-24] MEDS: INSULIN ASPART 300 UNITS/3 ML INSULN.PEN SQ SCH ×3 (08:00→17:00)
[2017-08-24] MEDS: methylPREDNISolone SOD SUCC PF 40 MG/ML VIAL. IV SCH ×2 (08:12→20:54)
[2017-08-24] MEDS: NICOTINE 21MG PATCH. TD SCH (08:12)
--- NOTE | 2017-08-24 09:48 | PDOC ---
PROGRESS NOTES Chief Complaint Chief Complaint AMS ASSESSMENT AND PLAN; 1. Encephalopathy: suspected toxic and metabolic 2. COPD exacerbation: on steroids, nebs, suppl O2; currently on BiPAP 3. PNA RLL: on azithro, levaquin 4. UTI: empiric coverage with above Abx. await culture 5. TRISTON: suspect vasomotor etiology. monitor with IVF 6. DM2: fair control currently, prob affected by steroids. ISS 7. Anemia: chronic inflammation 8. Schizophrenia: on antipsychotics 9. PCM: severe POA, although hypoalbuminemia partly due to inflammation DNR History of Present Illness History of Present Illness difficult to talk 2/2 BiPAP. denies pain Vitals Vitals Vital Signs Date Time Temp Pulse Resp B/P (MAP) Pulse Ox O2 Delivery O2 Flow Rate FiO2 08/24/17 07:40 94 BiPAP/CPAP 08/24/17 07:00 97.7 75 20 114/49 (70) 97.7 08/24/17 03:00 3.0 Physical Exam General: Alert, Cooperative, No acute distress Heart: Regular rate Lungs: Clear Abdomen: Normal bowel sounds, No tenderness Extremities: No edema Skin: No rashes Labs LABS Laboratory Tests Test 08/23/17 12:18 08/23/17 12:30 08/23/17 15:10 08/23/17 17:02 Glucose (Fingerstick) 215 mg/dL (70-99) 114 mg/dL (70-99) White Blood Count 6.3 x10^3/uL (4.0-11.0) Red Blood Count 3.56 x10^6/uL (3.50-5.40) Hemoglobin 9.6 g/dL (12.0-15.5) Hematocrit 31.1 % (36.0-47.0) Mean Corpuscular Volume 87 fL (79-100) Mean Corpuscular Hemoglobin 27 pg (25-35) Mean Corpuscular Hemoglobin Concent 31 g/dL (31-37) Red Cell Distribution Width 18.1 % (11.5-14.5) Platelet Count 260 x10^3/uL (140-400) Erythrocyte Sedimentation Rate 26 (0-25) Prothrombin Time 13.7 SEC (11.7-14.0) Prothromb Time International Ratio 1.1 (0.8-1.1) Activated Partial Thromboplast Time 36 SEC (24-38) Sodium Level 140 mmol/L (136-145) Potassium Level 4.5 mmol/L (3.5-5.1) Chloride Level 103 mmol/L (98-107) Carbon Dioxide Level 31 mmol/L (21-32) Anion Gap 6 (6-14) Blood Urea Nitrogen 27 mg/dL (7-20) Creatinine 1.4 mg/dL (0.6-1.0) Estimated GFR (Cockcroft-Gault) 37.6 Glucose Level 222 mg/dL (70-99) Lactic Acid Level 2.0 mmol/L (0.4-2.0) Calcium Level 10.0 mg/dL (8.5-10.1) Magnesium Level 2.1 mg/dL (1.8-2.4) Total Bilirubin 0.2 mg/dL (0.2-1.0) Direct Bilirubin 0.1 mg/dL (0.0-0.2) Aspartate Amino Transf (AST/SGOT) 5 U/L (15-37) Alanine Aminotransferase (ALT/SGPT) 11 U/L (14-59) Alkaline Phosphatase 100 U/L (46-116) Creatine Kinase 16 U/L (26-192) Creatine Kinase MB (Mass) < 0.5 ng/mL (0.0-3.6) Creatine Kinase MB Relative Index % (0-4) Troponin I Quantitative < 0.017 ng/mL (0.000-0.055) C-Reactive Protein, Quantitative 50.0 mg/L (0-3.3) DB-Ujf-S-Type Natriuretic Peptide 637 pg/mL (0-124) Total Protein 7.5 g/dL (6.4-8.2) Albumin 2.8 g/dL (3.4-5.0) Lipase 53 U/L (73-393) Thyroid Stimulating Hormone (TSH) 2.253 uIU/mL (0.358-3.74) Urine Collection Type U cath Urine Color Yellow Urine Clarity Clear Urine pH 6.0 Urine Specific [place] <=1.005 Urine Protein Negative mg/dL (NEG-TRACE) Urine Glucose (UA) Negative mg/dL (NEG) Urine Ketones (Stick) Negative mg/dL (NEG) Urine Blood Negative (NEG) Urine Nitrite Negative (NEG) Urine Bilirubin Negative (NEG) Urine Urobilinogen Dipstick 0.2 mg/dL (0.2 mg/dL) Urine Leukocyte Esterase Moderate (NEG) Urine RBC 0 /HPF (0-2) Urine WBC 5-10 /HPF (0-4) Urine Transitional Epithelial Cells Mod /LPF Urine Bacteria 0 /HPF (0-FEW) Urine Hyaline Casts Few /HPF Urine Opiates Screen Neg (NEG) Urine Methadone Screen Neg (NEG) Urine Barbiturates Neg (NEG) Urine Phencyclidine Screen Neg (NEG) Urine Amphetamine/Methamphetamine Neg (NEG) Urine Benzodiazepines Screen Neg (NEG) Urine Cocaine Screen Neg (NEG) Urine Cannabinoids Screen Neg (NEG) Urine Ethyl Alcohol Neg (NEG) Test 08/23/17 17:51 08/23/17 21:00 08/23/17 22:04 08/24/17 05:30 O2 Saturation 91 % (92-99) Arterial Blood pH 7.20 (7.35-7.45) Arterial Blood pCO2 at Patient Temp 83 mmHg (35-46) Arterial Blood pO2 at Patient Temp 72 mmHg (65-108) Arterial Blood HCO3 31 mmol/L (21-28) Arterial Blood Base Excess 2 mmol/L (-3-3) FiO2 32 Troponin I Quantitative < 0.017 ng/mL (0.000-0.055) < 0.017 ng/mL (0.000-0.055) Glucose (Fingerstick) 197 mg/dL (70-99) Test 08/24/17 07:31 Glucose (Fingerstick) 182 mg/dL (70-99) ALISSA BENNETT MD Aug 24, 2017 09:48
[2017-08-24 10:25] LABS: CALCIUM 8.8 mg/dL (8.5-10.1); CREATININE 1.1 mg/dL (0.6-1.0); GFR 49.7; MAGNESIUM 2.1 mg/dL (1.8-2.4); POTASSIUM 5.7 mmol/L (3.5-5.1)
[2017-08-24 10:36] LABS: BASO % 0 % (0-3); EOS % 0 % (0-3); HEMATOCRIT 29.5 % (36.0-47.0); LYMPH # 0.5 x10^3/uL (1.0-4.8); LYMPH % 7 % (24-48); MEAN CORPUSCULAR HEMOGLOBIN 27 pg (25-35); MEAN CORPUSCULAR HGB CONC 30 g/dL (31-37); MEAN CORPUSCULAR VOLUME 90 fL (79-100); MONO % 2 % (0-9); NEUT % 92 % (31-73); PLATELET COUNT 265 x10^3/uL (140-400); RED BLOOD COUNT 3.29 x10^6/uL (3.50-5.40); RED CELL DISTRIBUTION WIDTH 18.3 % (11.5-14.5); WHITE BLOOD COUNT 7.9 x10^3/uL (4.0-11.0)
[2017-08-24 11:00] VITALS: BP 122/66
[2017-08-24 11:09] LABS: HCO3 ABG 29 mmol/L (21-28); PCO2 ABG 50 mmHg (35-46); PH ABG 7.39 (7.35-7.45); PO2 ABG 57 mmHg (65-108); SAT O2 ABG 89 % (92-99)
[2017-08-24 11:11] LABS: FIO2 ABG 32
--- NOTE | 2017-08-24 12:44 | PDOC ---
PULMONARY PROGRESS NOTES Subjective PT ALERT AND AT TIMES DELIRIOUS Vitals Vital Signs Date Time Temp Pulse Resp B/P (MAP) Pulse Ox O2 Delivery O2 Flow Rate FiO2 08/24/17 11:28 93 Nasal Cannula 3.0 08/24/17 11:00 97.7 87 19 122/66 (84) 97.7 Lungs: Crackles Cardiovascular: S1, S2 Abdomen: Soft Neuro Exam: Alert Extremities: No Edema Skin: Warm Labs Laboratory Tests Test 08/23/17 12:18 08/23/17 12:30 08/23/17 15:10 08/23/17 17:02 Glucose (Fingerstick) 215 mg/dL (70-99) 114 mg/dL (70-99) White Blood Count 6.3 x10^3/uL (4.0-11.0) Red Blood Count 3.56 x10^6/uL (3.50-5.40) Hemoglobin 9.6 g/dL (12.0-15.5) Hematocrit 31.1 % (36.0-47.0) Mean Corpuscular Volume 87 fL (79-100) Mean Corpuscular Hemoglobin 27 pg (25-35) Mean Corpuscular Hemoglobin Concent 31 g/dL (31-37) Red Cell Distribution Width 18.1 % (11.5-14.5) Platelet Count 260 x10^3/uL (140-400) Erythrocyte Sedimentation Rate 26 (0-25) Prothrombin Time 13.7 SEC (11.7-14.0) Prothromb Time International Ratio 1.1 (0.8-1.1) Activated Partial Thromboplast Time 36 SEC (24-38) Sodium Level 140 mmol/L (136-145) Potassium Level 4.5 mmol/L (3.5-5.1) Chloride Level 103 mmol/L (98-107) Carbon Dioxide Level 31 mmol/L (21-32) Anion Gap 6 (6-14) Blood Urea Nitrogen 27 mg/dL (7-20) Creatinine 1.4 mg/dL (0.6-1.0) Estimated GFR (Cockcroft-Gault) 37.6 Glucose Level 222 mg/dL (70-99) Lactic Acid Level 2.0 mmol/L (0.4-2.0) Calcium Level 10.0 mg/dL (8.5-10.1) Magnesium Level 2.1 mg/dL (1.8-2.4) Total Bilirubin 0.2 mg/dL (0.2-1.0) Direct Bilirubin 0.1 mg/dL (0.0-0.2) Aspartate Amino Transf (AST/SGOT) 5 U/L (15-37) Alanine Aminotransferase (ALT/SGPT) 11 U/L (14-59) Alkaline Phosphatase 100 U/L (46-116) Creatine Kinase 16 U/L (26-192) Creatine Kinase MB (Mass) < 0.5 ng/mL (0.0-3.6) Creatine Kinase MB Relative Index % (0-4) Troponin I Quantitative < 0.017 ng/mL (0.000-0.055) C-Reactive Protein, Quantitative 50.0 mg/L (0-3.3) DB-Efu-I-Type Natriuretic Peptide 637 pg/mL (0-124) Total Protein 7.5 g/dL (6.4-8.2) Albumin 2.8 g/dL (3.4-5.0) Lipase 53 U/L (73-393) Thyroid Stimulating Hormone (TSH) 2.253 uIU/mL (0.358-3.74) Urine Collection Type U cath Urine Color Yellow Urine Clarity Clear Urine pH 6.0 Urine Specific [place] <=1.005 Urine Protein Negative mg/dL (NEG-TRACE) Urine Glucose (UA) Negative mg/dL (NEG) Urine Ketones (Stick) Negative mg/dL (NEG) Urine Blood Negative (NEG) Urine Nitrite Negative (NEG) Urine Bilirubin Negative (NEG) Urine Urobilinogen Dipstick 0.2 mg/dL (0.2 mg/dL) Urine Leukocyte Esterase Moderate (NEG) Urine RBC 0 /HPF (0-2) Urine WBC 5-10 /HPF (0-4) Urine Transitional Epithelial Cells Mod /LPF Urine Bacteria 0 /HPF (0-FEW) Urine Hyaline Casts Few /HPF Urine Opiates Screen Neg (NEG) Urine Methadone Screen Neg (NEG) Urine Barbiturates Neg (NEG) Urine Phencyclidine Screen Neg (NEG) Urine Amphetamine/Methamphetamine Neg (NEG) Urine Benzodiazepines Screen Neg (NEG) Urine Cocaine Screen Neg (NEG) Urine Cannabinoids Screen Neg (NEG) Urine Ethyl Alcohol Neg (NEG) Test 08/23/17 17:51 08/23/17 21:00 08/23/17 22:04 08/24/17 05:30 O2 Saturation 91 % (92-99) Arterial Blood pH 7.20 (7.35-7.45) Arterial Blood pCO2 at Patient Temp 83 mmHg (35-46) Arterial Blood pO2 at Patient Temp 72 mmHg (65-108) Arterial Blood HCO3 31 mmol/L (21-28) Arterial Blood Base Excess 2 mmol/L (-3-3) FiO2 32 Troponin I Quantitative < 0.017 ng/mL (0.000-0.055) < 0.017 ng/mL (0.000-0.055) Glucose (Fingerstick) 197 mg/dL (70-99) White Blood Count 7.9 x10^3/uL (4.0-11.0) Red Blood Count 3.29 x10^6/uL (3.50-5.40) Hemoglobin 9.0 g/dL (12.0-15.5) Hematocrit 29.5 % (36.0-47.0) Mean Corpuscular Volume 90 fL (79-100) Mean Corpuscular Hemoglobin 27 pg (25-35) Mean Corpuscular Hemoglobin Concent 30 g/dL (31-37) Red Cell Distribution Width 18.3 % (11.5-14.5) Platelet Count 265 x10^3/uL (140-400) Neutrophils (%) (Auto) 92 % (31-73) Lymphocytes (%) (Auto) 7 % (24-48) Monocytes (%) (Auto) 2 % (0-9) Eosinophils (%) (Auto) 0 % (0-3) Basophils (%) (Auto) 0 % (0-3) Neutrophils # (Auto) 7.2 x10^3uL (1.8-7.7) Lymphocytes # (Auto) 0.5 x10^3/uL (1.0-4.8) Monocytes # (Auto) 0.1 x10^3/uL (0.0-1.1) Eosinophils # (Auto) 0.0 x10^3/uL (0.0-0.7) Basophils # (Auto) 0.0 x10^3/uL (0.0-0.2) Sodium Level 143 mmol/L (136-145) Potassium Level 5.7 mmol/L (3.5-5.1) Chloride Level 108 mmol/L (98-107) Carbon Dioxide Level 28 mmol/L (21-32) Anion Gap 7 (6-14) Blood Urea Nitrogen 29 mg/dL (7-20) Creatinine 1.1 mg/dL (0.6-1.0) Estimated GFR (Cockcroft-Gault) 49.7 Glucose Level 208 mg/dL (70-99) Calcium Level 8.8 mg/dL (8.5-10.1) Magnesium Level 2.1 mg/dL (1.8-2.4) Test 08/24/17 07:31 08/24/17 11:00 08/24/17 11:11 Glucose (Fingerstick) 182 mg/dL (70-99) 209 mg/dL (70-99) O2 Saturation 89 % (92-99) Arterial Blood pH 7.39 (7.35-7.45) Arterial Blood pCO2 at Patient Temp 50 mmHg (35-46) Arterial Blood pO2 at Patient Temp 57 mmHg (65-108) Arterial Blood HCO3 29 mmol/L (21-28) Arterial Blood Base Excess 4 mmol/L (-3-3) FiO2 32 Laboratory Tests Test 08/23/17 15:10 08/23/17 17:02 08/23/17 17:51 08/23/17 21:00 Urine Collection Type U cath Urine Color Yellow Urine Clarity Clear Urine pH 6.0 Urine Specific [place] <=1.005 Urine Protein Negative mg/dL (NEG-TRACE) Urine Glucose (UA) Negative mg/dL (NEG) Urine Ketones (Stick) Negative mg/dL (NEG) Urine Blood Negative (NEG) Urine Nitrite Negative (NEG) Urine Bilirubin Negative (NEG) Urine Urobilinogen Dipstick 0.2 mg/dL (0.2 mg/dL) Urine Leukocyte Esterase Moderate (NEG) Urine RBC 0 /HPF (0-2) Urine WBC 5-10 /HPF (0-4) Urine Transitional Epithelial Cells Mod /LPF Urine Bacteria 0 /HPF (0-FEW) Urine Hyaline Casts Few /HPF Urine Opiates Screen Neg (NEG) Urine Methadone Screen Neg (NEG) Urine Barbiturates Neg (NEG) Urine Phencyclidine Screen Neg (NEG) Urine Amphetamine/Methamphetamine Neg (NEG) Urine Benzodiazepines Screen Neg (NEG) Urine Cocaine Screen Neg (NEG) Urine Cannabinoids Screen Neg (NEG) Urine Ethyl Alcohol Neg (NEG) Glucose (Fingerstick) 114 mg/dL (70-99) O2 Saturation 91 % (92-99) Arterial Blood pH 7.20 (7.35-7.45) Arterial Blood pCO2 at Patient Temp 83 mmHg (35-46) Arterial Blood pO2 at Patient Temp 72 mmHg (65-108) Arterial Blood HCO3 31 mmol/L (21-28) Arterial Blood Base Excess 2 mmol/L (-3-3) FiO2 32 Troponin I Quantitative < 0.017 ng/mL (0.000-0.055) Test 08/23/17 22:04 08/24/17 05:30 08/24/17 07:31 08/24/17 11:00 Glucose (Fingerstick) 197 mg/dL (70-99) 182 mg/dL (70-99) White Blood Count 7.9 x10^3/uL (4.0-11.0) Red Blood Count 3.29 x10^6/uL (3.50-5.40) Hemoglobin 9.0 g/dL (12.0-15.5) Hematocrit 29.5 % (36.0-47.0) Mean Corpuscular Volume 90 fL (79-100) Mean Corpuscular Hemoglobin 27 pg (25-35) Mean Corpuscular Hemoglobin Concent 30 g/dL (31-37) Red Cell Distribution Width 18.3 % (11.5-14.5) Platelet Count 265 x10^3/uL (140-400) Neutrophils (%) (Auto) 92 % (31-73) Lymphocytes (%) (Auto) 7 % (24-48) Monocytes (%) (Auto) 2 % (0-9) Eosinophils (%) (Auto) 0 % (0-3) Basophils (%) (Auto) 0 % (0-3) Neutrophils # (Auto) 7.2 x10^3uL (1.8-7.7) Lymphocytes # (Auto) 0.5 x10^3/uL (1.0-4.8) Monocytes # (Auto) 0.1 x10^3/uL (0.0-1.1) Eosinophils # (Auto) 0.0 x10^3/uL (0.0-0.7) Basophils # (Auto) 0.0 x10^3/uL (0.0-0.2) Sodium Level 143 mmol/L (136-145) Potassium Level 5.7 mmol/L (3.5-5.1) Chloride Level 108 mmol/L (98-107) Carbon Dioxide Level 28 mmol/L (21-32) Anion Gap 7 (6-14) Blood Urea Nitrogen 29 mg/dL (7-20) Creatinine 1.1 mg/dL (0.6-1.0) Estimated GFR (Cockcroft-Gault) 49.7 Glucose Level 208 mg/dL (70-99) Calcium Level 8.8 mg/dL (8.5-10.1) Magnesium Level 2.1 mg/dL (1.8-2.4) Troponin I Quantitative < 0.017 ng/mL (0.000-0.055) O2 Saturation 89 % (92-99) Arterial Blood pH 7.39 (7.35-7.45) Arterial Blood pCO2 at Patient Temp 50 mmHg (35-46) Arterial Blood pO2 at Patient Temp 57 mmHg (65-108) Arterial Blood HCO3 29 mmol/L (21-28) Arterial Blood Base Excess 4 mmol/L (-3-3) FiO2 32 Test 08/24/17 11:11 Glucose (Fingerstick) 209 mg/dL (70-99) Medications Active Scripts Medications Dose Route/Sig Max Daily Dose Days Date Category Tresiba Flextouch U-200 (Insulin Degludec) 200 Unit/1 Ml Insuln.pen 20 Unit SQ HS 09/08/16 Reported Vitamin D3 (Cholecalciferol (Vitamin D3)) 1,000 Unit Tablet 1,000 Unit PO 09/08/16 Reported Famotidine 20 Mg Tablet 20 Mg PO HS 09/08/16 Reported [Compound ABH ] 05/19/16 Reported Vitamin D (Cholecalciferol (Vitamin D3)) 1,000 Unit Capsule 1 Cap PO DAILY 05/19/16 Reported Seroquel (Quetiapine Fumarate) 100 Mg Tablet 1 Tab PO DAILY 05/19/16 Reported Senokot (Sennosides) 8.6 Mg Tablet 1 Tab PO DAILY 05/19/16 Reported Remeron (Mirtazapine) 15 Mg Tablet 1 Tab PO QHS 05/19/16 Reported Quetiapine Fumarate 400 Mg Tablet 400 Mg PO HS 05/19/16 Reported Seroquel (Quetiapine Fumarate) 300 Mg Tablet 1 Tab PO DAILY 05/19/16 Reported Potassium Chloride Oral Liquid (Potassium Chloride) 40 Meq/15 Ml Liquid 40 Meq PEG DAILY 05/19/16 Reported Nystatin 15 Gm Cream..g. 1 [place] TP BID 05/19/16 Reported Multi-Day Vitamins (Multivitamin) 1 Each Tablet 1 Tab PO DAILY 05/19/16 Reported Miralax (Polyethylene Glycol 3350) 17 Gm Powd.pack 1 Packet PO PRN DAILY PRN 05/19/16 Reported Metformin Hcl 500 Mg Tablet 1 Tab PO BID 05/19/16 Reported Mag-Oxide (Magnesium Oxide) 400 Mg Tablet 1 Tab PO DAILY 05/19/16 Reported Milk Of Magnesia (Magnesium Hydroxide) 400 Mg/5 Ml Oral.susp 30 Ml PO PRN DAILY PRN 05/19/16 Reported Levothyroxine Sodium 50 Mcg Tablet 1 Tab PO DAILY 05/19/16 Reported Hydralazine Hcl 25 Mg Tablet 1 Tab PO BID 05/19/16 Reported Glimepiride 1 Mg Tablet 1 Tab PO BID 05/19/16 Reported Furosemide 40 Mg Tablet 40 Mg PO BID 05/19/16 Reported Depakene (Valproate Sodium) 250 Mg/5 Ml Solution 1,000 Mg PO BID 05/19/16 Reported Ventolin Hfa Inhaler (Albuterol Sulfate) 18 Gm Hfa.aer.ad 2 Puff INH BID 05/19/16 Reported Acetaminophen 325 Mg Capsule 650 Mg PO PRN Q6HRS PRN 05/19/16 Reported Impression . I 1. Acute hypercapnia/ hypoxemic respiratory failure, present upon admission. 2. Acute suspect combination of toxic and metabolic encephalopathy, present upon admission. 3. History of schizophrenia. 4. Abnormal x-ray compatible with pneumonia, present upon admission. 5. Severe protein malnutrition, present upon admission. 6. Negative urine drug screen. 7. Chronic anemia. 8. Acute kidney failure. Plan . 7.39/50/57 ADEQUATE BLOOD GAS FOR PT BIPAP QHS 1. We will initiate empiric antibiotics, IV FLUIDS. 2. ABG NOTED 3. BIPAP QHS AND PRN 4. antipsychotic medications PER PCP NATHAN ROMERO MD Aug 24, 2017 12:44
[2017-08-24 13:04] LABS: ANISOCYTOSIS PRESENT; PLT ESTIMATE ADEQUATE (ADEQUATE)
[2017-08-24] MEDS: LORazepam 0.5 MG TABLET PO PRN ×2 (13:18→22:34)
[2017-08-24 15:00] VITALS: BP 94/53
[2017-08-24] MEDS ORDERED: HALOPERIDOL LACTATE 5 MG/ML VIAL. IVP ONE (15:45)
[2017-08-24] MEDS ORDERED: FLU VACC QS2017-18 (36MOS+)/PF 0.5 ML SYRINGE. VAX IM ONE (17:00)
[2017-08-24 19:00] VITALS: BP 136/61
[2017-08-24 23:00] VITALS: BP 150/54
[2017-08-25 03:00] VITALS: BP 141/49
[2017-08-25] MEDS: IPRATRPIUM/ALBUTEROL 0.5/2.5MG 3 ML NEBU. NEB SCH ×6 (03:18→23:41)
[2017-08-25 07:00] VITALS: BP 122/69
[2017-08-25] MEDS: NICOTINE 21MG PATCH. TD SCH (08:11)
[2017-08-25] MEDS: LORazepam 0.5 MG TABLET PO PRN (08:12)
[2017-08-25] MEDS: methylPREDNISolone SOD SUCC PF 40 MG/ML VIAL. IV SCH (08:12)
[2017-08-25] MEDS: INSULIN ASPART 300 UNITS/3 ML INSULN.PEN SQ SCH ×3 (08:19→17:45)
--- NOTE | 2017-08-25 08:44 | PDOC ---
PULMONARY PROGRESS NOTES Subjective PT ALERT AND AT TIMES DELIRIOUS REFUSED BIPAP Vitals Vital Signs Date Time Temp Pulse Resp B/P (MAP) Pulse Ox O2 Delivery O2 Flow Rate FiO2 08/25/17 07:54 95 Nasal Cannula 3.0 08/25/17 07:00 97.7 84 20 122/69 (86) 97.7 Lungs: Crackles Cardiovascular: S1, S2 Abdomen: Soft Neuro Exam: Alert Extremities: No Edema Skin: Warm Labs Laboratory Tests Test 08/23/17 12:18 08/23/17 12:30 08/23/17 15:10 08/23/17 17:02 Glucose (Fingerstick) 215 mg/dL (70-99) 114 mg/dL (70-99) White Blood Count 6.3 x10^3/uL (4.0-11.0) Red Blood Count 3.56 x10^6/uL (3.50-5.40) Hemoglobin 9.6 g/dL (12.0-15.5) Hematocrit 31.1 % (36.0-47.0) Mean Corpuscular Volume 87 fL (79-100) Mean Corpuscular Hemoglobin 27 pg (25-35) Mean Corpuscular Hemoglobin Concent 31 g/dL (31-37) Red Cell Distribution Width 18.1 % (11.5-14.5) Platelet Count 260 x10^3/uL (140-400) Erythrocyte Sedimentation Rate 26 (0-25) Prothrombin Time 13.7 SEC (11.7-14.0) Prothromb Time International Ratio 1.1 (0.8-1.1) Activated Partial Thromboplast Time 36 SEC (24-38) Sodium Level 140 mmol/L (136-145) Potassium Level 4.5 mmol/L (3.5-5.1) Chloride Level 103 mmol/L (98-107) Carbon Dioxide Level 31 mmol/L (21-32) Anion Gap 6 (6-14) Blood Urea Nitrogen 27 mg/dL (7-20) Creatinine 1.4 mg/dL (0.6-1.0) Estimated GFR (Cockcroft-Gault) 37.6 Glucose Level 222 mg/dL (70-99) Lactic Acid Level 2.0 mmol/L (0.4-2.0) Calcium Level 10.0 mg/dL (8.5-10.1) Magnesium Level 2.1 mg/dL (1.8-2.4) Total Bilirubin 0.2 mg/dL (0.2-1.0) Direct Bilirubin 0.1 mg/dL (0.0-0.2) Aspartate Amino Transf (AST/SGOT) 5 U/L (15-37) Alanine Aminotransferase (ALT/SGPT) 11 U/L (14-59) Alkaline Phosphatase 100 U/L (46-116) Creatine Kinase 16 U/L (26-192) Creatine Kinase MB (Mass) < 0.5 ng/mL (0.0-3.6) Creatine Kinase MB Relative Index % (0-4) Troponin I Quantitative < 0.017 ng/mL (0.000-0.055) C-Reactive Protein, Quantitative 50.0 mg/L (0-3.3) FR-Ttu-M-Type Natriuretic Peptide 637 pg/mL (0-124) Total Protein 7.5 g/dL (6.4-8.2) Albumin 2.8 g/dL (3.4-5.0) Lipase 53 U/L (73-393) Thyroid Stimulating Hormone (TSH) 2.253 uIU/mL (0.358-3.74) Urine Collection Type U cath Urine Color Yellow Urine Clarity Clear Urine pH 6.0 Urine Specific [place] <=1.005 Urine Protein Negative mg/dL (NEG-TRACE) Urine Glucose (UA) Negative mg/dL (NEG) Urine Ketones (Stick) Negative mg/dL (NEG) Urine Blood Negative (NEG) Urine Nitrite Negative (NEG) Urine Bilirubin Negative (NEG) Urine Urobilinogen Dipstick 0.2 mg/dL (0.2 mg/dL) Urine Leukocyte Esterase Moderate (NEG) Urine RBC 0 /HPF (0-2) Urine WBC 5-10 /HPF (0-4) Urine Transitional Epithelial Cells Mod /LPF Urine Bacteria 0 /HPF (0-FEW) Urine Hyaline Casts Few /HPF Urine Opiates Screen Neg (NEG) Urine Methadone Screen Neg (NEG) Urine Barbiturates Neg (NEG) Urine Phencyclidine Screen Neg (NEG) Urine Amphetamine/Methamphetamine Neg (NEG) Urine Benzodiazepines Screen Neg (NEG) Urine Cocaine Screen Neg (NEG) Urine Cannabinoids Screen Neg (NEG) Urine Ethyl Alcohol Neg (NEG) Test 08/23/17 17:51 08/23/17 18:00 08/23/17 21:00 08/23/17 22:04 O2 Saturation 91 % (92-99) Arterial Blood pH 7.20 (7.35-7.45) Arterial Blood pCO2 at Patient Temp 83 mmHg (35-46) Arterial Blood pO2 at Patient Temp 72 mmHg (65-108) Arterial Blood HCO3 31 mmol/L (21-28) Arterial Blood Base Excess 2 mmol/L (-3-3) FiO2 32 Nasal Screen MRSA (PCR) Negative (Negative) Troponin I Quantitative < 0.017 ng/mL (0.000-0.055) Glucose (Fingerstick) 197 mg/dL (70-99) Test 08/24/17 05:30 08/24/17 07:31 08/24/17 11:00 08/24/17 11:11 White Blood Count 7.9 x10^3/uL (4.0-11.0) Red Blood Count 3.29 x10^6/uL (3.50-5.40) Hemoglobin 9.0 g/dL (12.0-15.5) Hematocrit 29.5 % (36.0-47.0) Mean Corpuscular Volume 90 fL (79-100) Mean Corpuscular Hemoglobin 27 pg (25-35) Mean Corpuscular Hemoglobin Concent 30 g/dL (31-37) Red Cell Distribution Width 18.3 % (11.5-14.5) Platelet Count 265 x10^3/uL (140-400) Neutrophils (%) (Auto) 92 % (31-73) Lymphocytes (%) (Auto) 7 % (24-48) Monocytes (%) (Auto) 2 % (0-9) Eosinophils (%) (Auto) 0 % (0-3) Basophils (%) (Auto) 0 % (0-3) Neutrophils # (Auto) 7.2 x10^3uL (1.8-7.7) Lymphocytes # (Auto) 0.5 x10^3/uL (1.0-4.8) Monocytes # (Auto) 0.1 x10^3/uL (0.0-1.1) Eosinophils # (Auto) 0.0 x10^3/uL (0.0-0.7) Basophils # (Auto) 0.0 x10^3/uL (0.0-0.2) Segmented Neutrophils % 85 % (35-66) Band Neutrophils % 5 % (0-9) Lymphocytes % 9 % (24-48) Monocytes % 1 % (0-10) Platelet Estimate Adequate (ADEQUATE) Anisocytosis Present Sodium Level 143 mmol/L (136-145) Potassium Level 5.7 mmol/L (3.5-5.1) Chloride Level 108 mmol/L (98-107) Carbon Dioxide Level 28 mmol/L (21-32) Anion Gap 7 (6-14) Blood Urea Nitrogen 29 mg/dL (7-20) Creatinine 1.1 mg/dL (0.6-1.0) Estimated GFR (Cockcroft-Gault) 49.7 Glucose Level 208 mg/dL (70-99) Calcium Level 8.8 mg/dL (8.5-10.1) Magnesium Level 2.1 mg/dL (1.8-2.4) Troponin I Quantitative < 0.017 ng/mL (0.000-0.055) Glucose (Fingerstick) 182 mg/dL (70-99) 209 mg/dL (70-99) O2 Saturation 89 % (92-99) Arterial Blood pH 7.39 (7.35-7.45) Arterial Blood pCO2 at Patient Temp 50 mmHg (35-46) Arterial Blood pO2 at Patient Temp 57 mmHg (65-108) Arterial Blood HCO3 29 mmol/L (21-28) Arterial Blood Base Excess 4 mmol/L (-3-3) FiO2 32 Test 08/24/17 16:22 08/24/17 19:45 08/25/17 06:56 Glucose (Fingerstick) 291 mg/dL (70-99) 244 mg/dL (70-99) 248 mg/dL (70-99) Laboratory Tests Test 08/24/17 11:00 08/24/17 11:11 08/24/17 16:22 08/24/17 19:45 O2 Saturation 89 % (92-99) Arterial Blood pH 7.39 (7.35-7.45) Arterial Blood pCO2 at Patient Temp 50 mmHg (35-46) Arterial Blood pO2 at Patient Temp 57 mmHg (65-108) Arterial Blood HCO3 29 mmol/L (21-28) Arterial Blood Base Excess 4 mmol/L (-3-3) FiO2 32 Glucose (Fingerstick) 209 mg/dL (70-99) 291 mg/dL (70-99) 244 mg/dL (70-99) Test 08/25/17 06:56 Glucose (Fingerstick) 248 mg/dL (70-99) Medications Active Scripts Medications Dose Route/Sig Max Daily Dose Days Date Category Tresiba Flextouch U-200 (Insulin Degludec) 200 Unit/1 Ml Insuln.pen 20 Unit SQ HS 09/08/16 Reported Vitamin D3 (Cholecalciferol (Vitamin D3)) 1,000 Unit Tablet 1,000 Unit PO 09/08/16 Reported Famotidine 20 Mg Tablet 20 Mg PO HS 09/08/16 Reported [Compound ABH ] 05/19/16 Reported Vitamin D (Cholecalciferol (Vitamin D3)) 1,000 Unit Capsule 1 Cap PO DAILY 05/19/16 Reported Seroquel (Quetiapine Fumarate) 100 Mg Tablet 1 Tab PO DAILY 05/19/16 Reported Senokot (Sennosides) 8.6 Mg Tablet 1 Tab PO DAILY 05/19/16 Reported Remeron (Mirtazapine) 15 Mg Tablet 1 Tab PO QHS 05/19/16 Reported Quetiapine Fumarate 400 Mg Tablet 400 Mg PO HS 05/19/16 Reported Seroquel (Quetiapine Fumarate) 300 Mg Tablet 1 Tab PO DAILY 05/19/16 Reported Potassium Chloride Oral Liquid (Potassium Chloride) 40 Meq/15 Ml Liquid 40 Meq PEG DAILY 05/19/16 Reported Nystatin 15 Gm Cream..g. 1 Romelia TP BID 05/19/16 Reported Multi-Day Vitamins (Multivitamin) 1 Each Tablet 1 Tab PO DAILY 05/19/16 Reported Miralax (Polyethylene Glycol 3350) 17 Gm Powd.pack 1 Packet PO PRN DAILY PRN 05/19/16 Reported Metformin Hcl 500 Mg Tablet 1 Tab PO BID 05/19/16 Reported Mag-Oxide (Magnesium Oxide) 400 Mg Tablet 1 Tab PO DAILY 05/19/16 Reported Milk Of Magnesia (Magnesium Hydroxide) 400 Mg/5 Ml Oral.susp 30 Ml PO PRN DAILY PRN 05/19/16 Reported Levothyroxine Sodium 50 Mcg Tablet 1 Tab PO DAILY 05/19/16 Reported Hydralazine Hcl 25 Mg Tablet 1 Tab PO BID 05/19/16 Reported Glimepiride 1 Mg Tablet 1 Tab PO BID 05/19/16 Reported Furosemide 40 Mg Tablet 40 Mg PO BID 05/19/16 Reported Depakene (Valproate Sodium) 250 Mg/5 Ml Solution 1,000 Mg PO BID 05/19/16 Reported Ventolin Hfa Inhaler (Albuterol Sulfate) 18 Gm Hfa.aer.ad 2 Puff INH BID 05/19/16 Reported Acetaminophen 325 Mg Capsule 650 Mg PO PRN Q6HRS PRN 05/19/16 Reported Impression . I 1. Acute hypercapnia/ hypoxemic respiratory failure, present upon admission. 2. Acute suspect combination of toxic and metabolic encephalopathy, present upon admission. 3. History of schizophrenia. 4. Abnormal x-ray compatible with pneumonia, present upon admission. 5. Severe protein malnutrition, present upon admission. 6. Negative urine drug screen. 7. Chronic anemia. 8. Acute kidney failure. IMPRESSION: There is no sonographic evidence of deep vein thrombosis in either lower extremity. Plan . 7.39/50/57 ADEQUATE BLOOD GAS FOR PT 12/9 BIPAP QHS REPEAT ABG AND CXR ANTIBX NATHAN ROMERO MD Aug 25, 2017 08:44
[2017-08-25 09:44] LABS: HCO3 ABG 30 mmol/L (21-28); PCO2 ABG 53 mmHg (35-46); PH ABG 7.37 (7.35-7.45); PO2 ABG 68 mmHg (65-108); SAT O2 ABG 92 % (92-99)
[2017-08-25 11:00] VITALS: BP 164/75
[2017-08-25] MEDS: HALOPERIDOL LACTATE 5 MG/ML VIAL. IVP PRN (11:52)
--- NOTE | 2017-08-25 13:29 | PDOC ---
PROGRESS NOTES Chief Complaint Chief Complaint AMS ASSESSMENT AND PLAN: 1. Encephalopathy: suspected toxic and metabolic. slowly improving. Haldol, ativan PRN. 1:1 sitter. 2. COPD exacerbation: on steroids (switch to PO in AM), nebs, suppl O2; BiPAP at night 3. PNA RLL: on azithro, levaquin 4. UTI: empiric coverage with above Abx. prelim cult NGTD 5. TRISTON: suspect vasomotor etiology. improving. monitor with IVF 6. Hyperkalemia: new. restart lasix, hold oral repletion 7. DM2: worse today. prob affected by steroids and increased PO intake. ISS, restart oral home meds, incl metformin 8. Anemia: chronic inflammation. on PO iron 9. Schizophrenia: on antipsychotics 10. PCM: severe POA, although hypoalbuminemia partly due to inflammation 11. Dispo: OT/PT eval; lives [facility] History of Present Illness History of Present Illness more alert today, visiting with sister. no c/o Vitals Vitals Vital Signs Date Time Temp Pulse Resp B/P (MAP) Pulse Ox O2 Delivery O2 Flow Rate FiO2 08/25/17 11:39 96 BiPAP/CPAP 08/25/17 11:00 97.7 94 26 164/75 (104) 3.0 97.7 Physical Exam General: Alert, Cooperative, No acute distress Heart: Regular rate Lungs: Crackles Abdomen: Normal bowel sounds, No tenderness Extremities: No edema Skin: No rashes Labs LABS Laboratory Tests Test 08/24/17 16:22 08/24/17 19:45 08/25/17 06:56 08/25/17 09:40 Glucose (Fingerstick) 291 mg/dL (70-99) 244 mg/dL (70-99) 248 mg/dL (70-99) O2 Saturation 92 % (92-99) Arterial Blood pH 7.37 (7.35-7.45) Arterial Blood pCO2 at Patient Temp 53 mmHg (35-46) Arterial Blood pO2 at Patient Temp 68 mmHg (65-108) Arterial Blood HCO3 30 mmol/L (21-28) Arterial Blood Base Excess 3 mmol/L (-3-3) FiO2 32.0 ALISSA BENNETT MD Aug 25, 2017 13:29
[2017-08-25 14:52] VITALS: BP 164/75
[2017-08-25] MEDS ORDERED: ACETAMINOPHEN 325 MG TABLET. PO PRN (16:30)
[2017-08-25] MEDS: SENNOSIDES 8.6 MG TABLET PO SCH (16:55)
[2017-08-25] MEDS: MAGNESIUM OXIDE 400 MG TABLET PO SCH (17:39)
[2017-08-25] MEDS: FUROSEMIDE 20 MG TABLET PO SCH (17:39)
[2017-08-25] MEDS: metFORMIN 500 MG TABLET PO SCH (17:39)
[2017-08-25 19:00] VITALS: BP 144/67
[2017-08-25] MEDS: traMADol 50 MG TABLET PO SCH (20:44)
[2017-08-25] MEDS: QUEtiapine 100 MG TABLET. PO SCH (20:44)
[2017-08-25] MEDS: VALPROIC ACID 250 MG CAPSULE. PO SCH (20:44)
[2017-08-25] MEDS: LACTOBACILLUS RHAMNOSUS GG 1 CAPSULE. PO SCH (20:45)
[2017-08-25] MEDS: hydrALAZINE 25 MG TABLET PO SCH (20:45)
[2017-08-25] MEDS: methylPREDNISolone SOD SUCC PF 125 MG/2 ML VIAL. IV SCH (20:45)
[2017-08-25] MEDS: INSULIN DETEMIR 300 UNITS/3 ML INSULN.PEN. SQ SCH (20:56)
[2017-08-25 23:00] VITALS: BP 128/59
[2017-08-26 03:00] VITALS: BP 112/58
[2017-08-26] MEDS: IPRATRPIUM/ALBUTEROL 0.5/2.5MG 3 ML NEBU. NEB SCH ×5 (03:07→19:54)
[2017-08-26 05:52] LABS: BASO % 0 % (0-3); EOS % 0 % (0-3); HEMATOCRIT 29.2 % (36.0-47.0); HEMOGLOBIN 8.9 g/dL (12.0-15.5); LYMPH # 0.8 x10^3/uL (1.0-4.8); LYMPH % 13 % (24-48); MEAN CORPUSCULAR HEMOGLOBIN 27 pg (25-35); MEAN CORPUSCULAR HGB CONC 30 g/dL (31-37); MEAN CORPUSCULAR VOLUME 89 fL (79-100); MONO % 3 % (0-9); NEUT % 84 % (31-73); PLATELET COUNT 202 x10^3/uL (140-400); RED BLOOD COUNT 3.27 x10^6/uL (3.50-5.40); RED CELL DISTRIBUTION WIDTH 18.6 % (11.5-14.5); WHITE BLOOD COUNT 5.9 x10^3/uL (4.0-11.0)
[2017-08-26 07:16] VITALS: BP 145/69
[2017-08-26 07:58] LABS: CALCIUM 9.2 mg/dL (8.5-10.1); CREATININE 1.3 mg/dL (0.6-1.0)
[2017-08-26 07:59] LABS: POTASSIUM 5.4 mmol/L (3.5-5.1)
[2017-08-26] MEDS: metFORMIN 500 MG TABLET PO SCH ×2 (08:12→17:03)
[2017-08-26] MEDS: INSULIN ASPART 300 UNITS/3 ML INSULN.PEN SQ SCH ×3 (08:14→17:07)
--- NOTE | 2017-08-26 08:16 | RAD ---
Portable chest, 08/26/2017: History: Pain, infiltrates Comparison is made to a study from 08/23/2017. The heart is at the upper limits of normal in size. There is tortuosity of the thoracic aorta. The pulmonary vascularity is within normal limits. No pulmonary infiltrates are seen. There is no evidence of pleural fluid. IMPRESSION: 1. Borderline cardiomegaly. 2. No acute infiltrates.
[2017-08-26] MEDS ORDERED: POTASSIUM CHLORIDE 20 MEQ/15 ML ORAL LIQUID. PO SCH (09:00)
[2017-08-26] MEDS: methylPREDNISolone SOD SUCC PF 125 MG/2 ML VIAL. IV SCH (09:00)
[2017-08-26] MEDS ORDERED: predniSONE 20 MG TABLET PO SCH (09:00)
--- NOTE | 2017-08-26 09:17 | PDOC ---
PULMONARY PROGRESS NOTES Subjective PT ALERT / NO SOA Vitals Vital Signs Date Time Temp Pulse Resp B/P (MAP) Pulse Ox O2 Delivery O2 Flow Rate FiO2 08/26/17 07:44 Bi-pap 08/26/17 07:16 97.9 81 20 145/69 (94) 99 3.0 97.9 General: Alert, No acute distress Lungs: Clear Cardiovascular: S1, S2 Abdomen: Soft Neuro Exam: Alert Extremities: Other (1+EDEMA) Skin: Warm Labs Laboratory Tests Test 08/24/17 11:00 08/24/17 11:11 08/24/17 16:22 08/24/17 19:45 O2 Saturation 89 % (92-99) Arterial Blood pH 7.39 (7.35-7.45) Arterial Blood pCO2 at Patient Temp 50 mmHg (35-46) Arterial Blood pO2 at Patient Temp 57 mmHg (65-108) Arterial Blood HCO3 29 mmol/L (21-28) Arterial Blood Base Excess 4 mmol/L (-3-3) FiO2 32 Glucose (Fingerstick) 209 mg/dL (70-99) 291 mg/dL (70-99) 244 mg/dL (70-99) Test 08/25/17 06:56 08/25/17 09:40 08/25/17 12:31 08/25/17 17:05 Glucose (Fingerstick) 248 mg/dL (70-99) 409 mg/dL (70-99) 348 mg/dL (70-99) O2 Saturation 92 % (92-99) Arterial Blood pH 7.37 (7.35-7.45) Arterial Blood pCO2 at Patient Temp 53 mmHg (35-46) Arterial Blood pO2 at Patient Temp 68 mmHg (65-108) Arterial Blood HCO3 30 mmol/L (21-28) Arterial Blood Base Excess 3 mmol/L (-3-3) FiO2 32.0 Test 08/25/17 20:48 08/26/17 05:25 08/26/17 07:02 08/26/17 07:10 Glucose (Fingerstick) 296 mg/dL (70-99) 278 mg/dL (70-99) White Blood Count 5.9 x10^3/uL (4.0-11.0) Red Blood Count 3.27 x10^6/uL (3.50-5.40) Hemoglobin 8.9 g/dL (12.0-15.5) Hematocrit 29.2 % (36.0-47.0) Mean Corpuscular Volume 89 fL (79-100) Mean Corpuscular Hemoglobin 27 pg (25-35) Mean Corpuscular Hemoglobin Concent 30 g/dL (31-37) Red Cell Distribution Width 18.6 % (11.5-14.5) Platelet Count 202 x10^3/uL (140-400) Neutrophils (%) (Auto) 84 % (31-73) Lymphocytes (%) (Auto) 13 % (24-48) Monocytes (%) (Auto) 3 % (0-9) Eosinophils (%) (Auto) 0 % (0-3) Basophils (%) (Auto) 0 % (0-3) Neutrophils # (Auto) 4.9 x10^3uL (1.8-7.7) Lymphocytes # (Auto) 0.8 x10^3/uL (1.0-4.8) Monocytes # (Auto) 0.2 x10^3/uL (0.0-1.1) Eosinophils # (Auto) 0.0 x10^3/uL (0.0-0.7) Basophils # (Auto) 0.0 x10^3/uL (0.0-0.2) Sodium Level 141 mmol/L (136-145) Potassium Level 5.4 mmol/L (3.5-5.1) Chloride Level 105 mmol/L (98-107) Carbon Dioxide Level 32 mmol/L (21-32) Anion Gap 4 (6-14) Blood Urea Nitrogen 36 mg/dL (7-20) Creatinine 1.3 mg/dL (0.6-1.0) Estimated GFR (Cockcroft-Gault) 41.0 Glucose Level 304 mg/dL (70-99) Calcium Level 9.2 mg/dL (8.5-10.1) Laboratory Tests Test 08/25/17 09:40 08/25/17 12:31 08/25/17 17:05 08/25/17 20:48 O2 Saturation 92 % (92-99) Arterial Blood pH 7.37 (7.35-7.45) Arterial Blood pCO2 at Patient Temp 53 mmHg (35-46) Arterial Blood pO2 at Patient Temp 68 mmHg (65-108) Arterial Blood HCO3 30 mmol/L (21-28) Arterial Blood Base Excess 3 mmol/L (-3-3) FiO2 32.0 Glucose (Fingerstick) 409 mg/dL (70-99) 348 mg/dL (70-99) 296 mg/dL (70-99) Test 08/26/17 05:25 08/26/17 07:02 08/26/17 07:10 White Blood Count 5.9 x10^3/uL (4.0-11.0) Red Blood Count 3.27 x10^6/uL (3.50-5.40) Hemoglobin 8.9 g/dL (12.0-15.5) Hematocrit 29.2 % (36.0-47.0) Mean Corpuscular Volume 89 fL (79-100) Mean Corpuscular Hemoglobin 27 pg (25-35) Mean Corpuscular Hemoglobin Concent 30 g/dL (31-37) Red Cell Distribution Width 18.6 % (11.5-14.5) Platelet Count 202 x10^3/uL (140-400) Neutrophils (%) (Auto) 84 % (31-73) Lymphocytes (%) (Auto) 13 % (24-48) Monocytes (%) (Auto) 3 % (0-9) Eosinophils (%) (Auto) 0 % (0-3) Basophils (%) (Auto) 0 % (0-3) Neutrophils # (Auto) 4.9 x10^3uL (1.8-7.7) Lymphocytes # (Auto) 0.8 x10^3/uL (1.0-4.8) Monocytes # (Auto) 0.2 x10^3/uL (0.0-1.1) Eosinophils # (Auto) 0.0 x10^3/uL (0.0-0.7) Basophils # (Auto) 0.0 x10^3/uL (0.0-0.2) Glucose (Fingerstick) 278 mg/dL (70-99) Sodium Level 141 mmol/L (136-145) Potassium Level 5.4 mmol/L (3.5-5.1) Chloride Level 105 mmol/L (98-107) Carbon Dioxide Level 32 mmol/L (21-32) Anion Gap 4 (6-14) Blood Urea Nitrogen 36 mg/dL (7-20) Creatinine 1.3 mg/dL (0.6-1.0) Estimated GFR (Cockcroft-Gault) 41.0 Glucose Level 304 mg/dL (70-99) Calcium Level 9.2 mg/dL (8.5-10.1) Medications Active Scripts Medications Dose Route/Sig Max Daily Dose Days Date Category Tresiba Flextouch U-200 (Insulin Degludec) 200 Unit/1 Ml Insuln.pen 20 Unit SQ HS 09/08/16 Reported Vitamin D3 (Cholecalciferol (Vitamin D3)) 1,000 Unit Tablet 1,000 Unit PO 09/08/16 Reported Famotidine 20 Mg Tablet 20 Mg PO HS 09/08/16 Reported [Compound ABH ] 05/19/16 Reported Vitamin D (Cholecalciferol (Vitamin D3)) 1,000 Unit Capsule 1 Cap PO DAILY 05/19/16 Reported Seroquel (Quetiapine Fumarate) 100 Mg Tablet 1 Tab PO DAILY 05/19/16 Reported Senokot (Sennosides) 8.6 Mg Tablet 1 Tab PO DAILY 05/19/16 Reported Remeron (Mirtazapine) 15 Mg Tablet 1 Tab PO QHS 05/19/16 Reported Quetiapine Fumarate 400 Mg Tablet 400 Mg PO HS 05/19/16 Reported Seroquel (Quetiapine Fumarate) 300 Mg Tablet 1 Tab PO DAILY 05/19/16 Reported Potassium Chloride Oral Liquid (Potassium Chloride) 40 Meq/15 Ml Liquid 40 Meq PEG DAILY 05/19/16 Reported Nystatin 15 Gm Cream..g. 1 Romelia TP BID 05/19/16 Reported Multi-Day Vitamins (Multivitamin) 1 Each Tablet 1 Tab PO DAILY 05/19/16 Reported Miralax (Polyethylene Glycol 3350) 17 Gm Powd.pack 1 Packet PO PRN DAILY PRN 05/19/16 Reported Metformin Hcl 500 Mg Tablet 1 Tab PO BID 05/19/16 Reported Mag-Oxide (Magnesium Oxide) 400 Mg Tablet 1 Tab PO DAILY 05/19/16 Reported Milk Of Magnesia (Magnesium Hydroxide) 400 Mg/5 Ml Oral.susp 30 Ml PO PRN DAILY PRN 05/19/16 Reported Levothyroxine Sodium 50 Mcg Tablet 1 Tab PO DAILY 05/19/16 Reported Hydralazine Hcl 25 Mg Tablet 1 Tab PO BID 05/19/16 Reported Glimepiride 1 Mg Tablet 1 Tab PO BID 05/19/16 Reported Furosemide 40 Mg Tablet 40 Mg PO BID 05/19/16 Reported Depakene (Valproate Sodium) 250 Mg/5 Ml Solution 1,000 Mg PO BID 05/19/16 Reported Ventolin Hfa Inhaler (Albuterol Sulfate) 18 Gm Hfa.aer.ad 2 Puff INH BID 05/19/16 Reported Acetaminophen 325 Mg Capsule 650 Mg PO PRN Q6HRS PRN 05/19/16 Reported Impression . I 1. Acute on chronic hypercapnia/ hypoxemic respiratory failure, present upon admission. improved ABG 2. Acute combination of toxic and metabolic encephalopathy, present upon admission. 3. History of schizophrenia. 4. Abnormal x-ray compatible with pneumonia, present upon admission. (right basal infiltrate) 5. Severe protein malnutrition, present upon admission. 6. Negative urine drug screen. 7. Chronic anemia. 8. Acute kidney failure. Plan . CLINICALLY IMPROVING BIPAP QHS /PRN DURING DAY REPEAT ABG IMPROVED ANTIBX LEVAQUIN TAPER IV STEROIDS AMARILYS FRENCH MD Aug 26, 2017 09:17
[2017-08-26] MEDS: LACTOBACILLUS RHAMNOSUS GG 1 CAPSULE. PO SCH ×3 (09:29→22:33)
[2017-08-26] MEDS: FUROSEMIDE 20 MG TABLET PO SCH ×2 (09:29→14:14)
[2017-08-26] MEDS: LORazepam 0.5 MG TABLET PO PRN (09:29)
[2017-08-26] MEDS: MAGNESIUM OXIDE 400 MG TABLET PO SCH (09:29)
[2017-08-26] MEDS: LINAGLIPTIN 5 MG TABLET PO SCH (09:29)
[2017-08-26] MEDS: hydrALAZINE 25 MG TABLET PO SCH ×3 (09:30→22:33)
[2017-08-26] MEDS: LEVOTHYROXINE 50 MCG TABLET PO SCH (09:30)
[2017-08-26] MEDS: SENNOSIDES 8.6 MG TABLET PO SCH (09:30)
[2017-08-26] MEDS: traMADol 50 MG TABLET PO SCH ×3 (09:30→22:33)
[2017-08-26] MEDS: NICOTINE 21MG PATCH. TD SCH (09:31)
[2017-08-26] MEDS: INSULIN DETEMIR 300 UNITS/3 ML INSULN.PEN. SQ SCH ×2 (09:46→22:24)
[2017-08-26] MEDS: methylPREDNISolone SOD SUCC PF 40 MG/ML VIAL. IV SCH ×2 (09:47→22:16)
[2017-08-26] MEDS: VALPROIC ACID 250 MG CAPSULE. PO SCH ×3 (09:47→22:33)
[2017-08-26 11:01] VITALS: BP 153/84
--- NOTE | 2017-08-26 14:04 | PDOC ---
PROGRESS NOTES Chief Complaint Chief Complaint 1. Encephalopathy, acute: toxic and metabolic. slowly improving. has had 1: 1 sitter. try to stop 2. COPD exacerbation: on steroids (tapering), nebs, suppl O2; BiPAP at night 3. PNA RLL: on azithro, levaquin 4. UTI: empiric coverage with above Abx. prelim cult NGTD 5. TRISTON: suspect vasomotor etiology. improving. monitor with IVF 6. Hyperkalemia: new. restart lasix, hold oral repletion 7. DM2: worse today. prob affected by steroids and increased PO intake. ISS, restart oral home meds, incl metformin 8. Anemia: chronic inflammation. on PO iron 9. Schizophrenia: on antipsychotics 10. PCM: severe POA, although hypoalbuminemia partly due to inflammation 11. Dispo: OT/PT eval; lives in [place] History of Present Illness History of Present Illness more alert today, visiting with sister. no c/o Vitals Vitals Vital Signs Date Time Temp Pulse Resp B/P (MAP) Pulse Ox O2 Delivery O2 Flow Rate FiO2 08/26/17 11:09 99 Nasal Cannula 3.0 08/26/17 11:01 98.1 87 22 153/84 (107) 98.1 Physical Exam General: Alert, Cooperative, No acute distress Heart: Regular rate Lungs: Clear Abdomen: Normal bowel sounds, No tenderness Extremities: No edema Skin: No rashes Labs LABS Laboratory Tests Test 08/25/17 17:05 08/25/17 20:48 08/26/17 05:25 08/26/17 07:02 Glucose (Fingerstick) 348 mg/dL (70-99) 296 mg/dL (70-99) 278 mg/dL (70-99) White Blood Count 5.9 x10^3/uL (4.0-11.0) Red Blood Count 3.27 x10^6/uL (3.50-5.40) Hemoglobin 8.9 g/dL (12.0-15.5) Hematocrit 29.2 % (36.0-47.0) Mean Corpuscular Volume 89 fL (79-100) Mean Corpuscular Hemoglobin 27 pg (25-35) Mean Corpuscular Hemoglobin Concent 30 g/dL (31-37) Red Cell Distribution Width 18.6 % (11.5-14.5) Platelet Count 202 x10^3/uL (140-400) Neutrophils (%) (Auto) 84 % (31-73) Lymphocytes (%) (Auto) 13 % (24-48) Monocytes (%) (Auto) 3 % (0-9) Eosinophils (%) (Auto) 0 % (0-3) Basophils (%) (Auto) 0 % (0-3) Neutrophils # (Auto) 4.9 x10^3uL (1.8-7.7) Lymphocytes # (Auto) 0.8 x10^3/uL (1.0-4.8) Monocytes # (Auto) 0.2 x10^3/uL (0.0-1.1) Eosinophils # (Auto) 0.0 x10^3/uL (0.0-0.7) Basophils # (Auto) 0.0 x10^3/uL (0.0-0.2) Test 08/26/17 07:10 08/26/17 11:54 Sodium Level 141 mmol/L (136-145) Potassium Level 5.4 mmol/L (3.5-5.1) Chloride Level 105 mmol/L (98-107) Carbon Dioxide Level 32 mmol/L (21-32) Anion Gap 4 (6-14) Blood Urea Nitrogen 36 mg/dL (7-20) Creatinine 1.3 mg/dL (0.6-1.0) Estimated GFR (Cockcroft-Gault) 41.0 Glucose Level 304 mg/dL (70-99) Calcium Level 9.2 mg/dL (8.5-10.1) Glucose (Fingerstick) 169 mg/dL (70-99) Assessment and Plan Assessmemt and Plan doing better taper steroids cont current DC soon if cont to improved Problems Medical Problems: (1) Altered mental status Status: Acute (2) COPD exacerbation Status: Acute (3) Generalized weakness Status: Acute (4) Right lower lobe pneumonia Status: Acute Problems: Comment Review of Relevant I have reviewed the following items rolanda (where applicable) has been applied. Labs Laboratory Tests Test 08/24/17 16:22 08/24/17 19:45 08/25/17 06:56 08/25/17 09:40 Glucose (Fingerstick) 291 mg/dL (70-99) 244 mg/dL (70-99) 248 mg/dL (70-99) O2 Saturation 92 % (92-99) Arterial Blood pH 7.37 (7.35-7.45) Arterial Blood pCO2 at Patient Temp 53 mmHg (35-46) Arterial Blood pO2 at Patient Temp 68 mmHg (65-108) Arterial Blood HCO3 30 mmol/L (21-28) Arterial Blood Base Excess 3 mmol/L (-3-3) FiO2 32.0 Test 08/25/17 12:31 08/25/17 17:05 08/25/17 20:48 08/26/17 05:25 Glucose (Fingerstick) 409 mg/dL (70-99) 348 mg/dL (70-99) 296 mg/dL (70-99) White Blood Count 5.9 x10^3/uL (4.0-11.0) Red Blood Count 3.27 x10^6/uL (3.50-5.40) Hemoglobin 8.9 g/dL (12.0-15.5) Hematocrit 29.2 % (36.0-47.0) Mean Corpuscular Volume 89 fL (79-100) Mean Corpuscular Hemoglobin 27 pg (25-35) Mean Corpuscular Hemoglobin Concent 30 g/dL (31-37) Red Cell Distribution Width 18.6 % (11.5-14.5) Platelet Count 202 x10^3/uL (140-400) Neutrophils (%) (Auto) 84 % (31-73) Lymphocytes (%) (Auto) 13 % (24-48) Monocytes (%) (Auto) 3 % (0-9) Eosinophils (%) (Auto) 0 % (0-3) Basophils (%) (Auto) 0 % (0-3) Neutrophils # (Auto) 4.9 x10^3uL (1.8-7.7) Lymphocytes # (Auto) 0.8 x10^3/uL (1.0-4.8) Monocytes # (Auto) 0.2 x10^3/uL (0.0-1.1) Eosinophils # (Auto) 0.0 x10^3/uL (0.0-0.7) Basophils # (Auto) 0.0 x10^3/uL (0.0-0.2) Test 08/26/17 07:02 08/26/17 07:10 08/26/17 11:54 Glucose (Fingerstick) 278 mg/dL (70-99) 169 mg/dL (70-99) Sodium Level 141 mmol/L (136-145) Potassium Level 5.4 mmol/L (3.5-5.1) Chloride Level 105 mmol/L (98-107) Carbon Dioxide Level 32 mmol/L (21-32) Anion Gap 4 (6-14) Blood Urea Nitrogen 36 mg/dL (7-20) Creatinine 1.3 mg/dL (0.6-1.0) Estimated GFR (Cockcroft-Gault) 41.0 Glucose Level 304 mg/dL (70-99) Calcium Level 9.2 mg/dL (8.5-10.1) Laboratory Tests Test 08/25/17 17:05 08/25/17 20:48 08/26/17 05:25 08/26/17 07:02 Glucose (Fingerstick) 348 mg/dL (70-99) 296 mg/dL (70-99) 278 mg/dL (70-99) White Blood Count 5.9 x10^3/uL (4.0-11.0) Red Blood Count 3.27 x10^6/uL (3.50-5.40) Hemoglobin 8.9 g/dL (12.0-15.5) Hematocrit 29.2 % (36.0-47.0) Mean Corpuscular Volume 89 fL (79-100) Mean Corpuscular Hemoglobin 27 pg (25-35) Mean Corpuscular Hemoglobin Concent 30 g/dL (31-37) Red Cell Distribution Width 18.6 % (11.5-14.5) Platelet Count 202 x10^3/uL (140-400) Neutrophils (%) (Auto) 84 % (31-73) Lymphocytes (%) (Auto) 13 % (24-48) Monocytes (%) (Auto) 3 % (0-9) Eosinophils (%) (Auto) 0 % (0-3) Basophils (%) (Auto) 0 % (0-3) Neutrophils # (Auto) 4.9 x10^3uL (1.8-7.7) Lymphocytes # (Auto) 0.8 x10^3/uL (1.0-4.8) Monocytes # (Auto) 0.2 x10^3/uL (0.0-1.1) Eosinophils # (Auto) 0.0 x10^3/uL (0.0-0.7) Basophils # (Auto) 0.0 x10^3/uL (0.0-0.2) Test 08/26/17 07:10 08/26/17 11:54 Sodium Level 141 mmol/L (136-145) Potassium Level 5.4 mmol/L (3.5-5.1) Chloride Level 105 mmol/L (98-107) Carbon Dioxide Level 32 mmol/L (21-32) Anion Gap 4 (6-14) Blood Urea Nitrogen 36 mg/dL (7-20) Creatinine 1.3 mg/dL (0.6-1.0) Estimated GFR (Cockcroft-Gault) 41.0 Glucose Level 304 mg/dL (70-99) Calcium Level 9.2 mg/dL (8.5-10.1) Glucose (Fingerstick) 169 mg/dL (70-99) Microbiology 08/23/17 Blood Culture - Preliminary, Resulted NO GROWTH AFTER 3 DAYS 08/23/17 Urine Culture - Final, Complete 08/23/17 Urine Culture Result 1 (ANNMARIE) - Final, Complete Medications Current Medications Sodium Chloride 1,000 ml @ 100 mls/hr Q10H IV Last administered on 08/23/17 12:40; Start 08/23/17 at 12:19; Stop 08/23/17 at 22:18; Status DC Albuterol/ Ipratropium (Duoneb) 3 ml 1X ONCE NEB Last administered on 12:54; Start 08/23/17 at 12:30; Stop 08/23/17 at 12:31; Status DC Methylprednisolone Sodium Succinate (SOLU-Medrol 125MG VIAL) 125 mg 1X ONCE IV Last administered on 08/23/17 12:40; Start 08/23/17 at 12:30; Stop 08/23/17 at 12:31; Status DC Albuterol Sulfate (Ventolin Neb Soln) 10 mg 1X ONCE CONT NEB Last administered on 08/23/17 12:54; Start 08/23/17 at 12:30; Stop 08/23/17 at 12:31 ; Status DC Ondansetron HCl (Zofran) 4 mg PRN Q8HRS PRN IV NAUSEA/VOMITING; Start 08/23/17 at 15:00; Stop 08/24/17 at 14:59; Status DC Fentanyl Citrate (Fentanyl 2ml Vial) 50 mcg PRN Q2HR PRN IV PAIN; Start at 15:00; Stop 08/24/17 at 09:49; Status DC Sodium Chloride 1,000 ml 1454 STAT IV ; Start 08/23/17 at 14:54; Stop 08/23/17 at 15:07; Status DC Acetaminophen (Tylenol) 650 mg PRN Q4HRS PRN PO FEVER; Start 08/23/17 at 15:00 ; Stop 08/24/17 at 14:59; Status DC Albuterol/ Ipratropium (Duoneb) 3 ml RTQID NEB Last administered on 08/23/17 15:43; Start 08/23/17 at 16:00; Stop 08/23/17 at 17:29; Status DC Sodium Chloride 1,000 ml @ 1,000 mls/hr Q1H IV Last administered on 08/23/17 15:33; Start 08/23/17 at 15:15; Stop 08/23/17 at 16:14; Status DC Ceftriaxone Sodium 50 ml @ 100 mls/hr 1X ONCE IV Last administered on 15:33; Start 08/23/17 at 15:15; Stop 08/23/17 at 15:44; Status DC Azithromycin 250 ml @ 250 mls/hr 1X ONCE IV Last administered on 08/23/17 16 :15; Start 08/23/17 at 15:15; Stop 08/23/17 at 16:14; Status DC Albuterol/ Ipratropium (Duoneb) 3 ml Q4HRS NEB Last administered on 08/26/17 11:08; Start 08/23/17 at 20:00 Insulin Aspart (NovoLOG) 0-7 UNITS TIDWMEALS SQ Last administered on 12:01; Start 08/24/17 at 08:00 Dextrose (Dextrose 50%-Water Syringe) 12.5 gm PRN Q15MIN PRN IV SEE COMMENTS; Start 08/23/17 at 17:30 Levofloxacin (Levaquin) 250 mg QHS PO ; Start 08/23/17 at 18:30; Stop 08/23/17 at 19:40; Status DC Sodium Chloride 1,000 ml @ 75 mls/hr [id number] IV Last administered on 17:58; Start 08/23/17 at 18:30; Stop 08/24/17 at 10:45; Status DC Info (Do NOT chart on this placeholder) 0.5 each PRN DAILY PRN MC PRN; Start 08/23/17 at 18:45; Status Cancel Methylprednisolone Sodium Succinate (SOLU-Medrol 40MG VIAL) 60 mg Q12HR IV Last administered on 08/25/17 08:12; Start 08/23/17 at 21:00; Stop 08/25/17 at 16:30; Status DC Insulin Detemir (Levemir) 25 units 1X ONCE SQ Last administered on 08/23/17 22:36; Start 08/23/17 at 21:00; Stop 08/23/17 at 21:01; Status DC Levofloxacin/ Dextrose 50 ml @ 50 mls/hr Q24H IV Last administered on 20:44; Start 08/23/17 at 20:00 Lorazepam (Ativan) 2 mg PRN Q6HRS PRN IV ANXIETY / AGITATION Last administered on 08/24/17 04:03; Start 08/23/17 at 21:30; Stop 08/24/17 at 10:45; Status DC Nicotine (Nicoderm Cq 21mg) 1 patch DAILY TD Last administered on 08/26/17 09 :31; Start 08/23/17 at 22:00 Lorazepam (Ativan) 0.5 mg PRN Q8HRS PRN PO ANXIETY / AGITATION Last administered on 08/26/17 09:29; Start 08/24/17 at 10:45 Haloperidol Lactate (Haldol) 3 mg 1X ONCE IVP Last administered on 08/24/17 15:45; Start 08/24/17 at 15:45; Stop 08/24/17 at 15:46; Status DC Influenza Virus Vaccine Quadrival (Fluarix Quad 7806-8375 Syringe) 0.5 ml ONCE ONCE VAX IM ; Start 08/24/17 at 17:00; Stop 08/24/17 at 17:01; Status DC Haloperidol Lactate (Haldol) 5 mg PRN Q6HRS PRN IVP AGITATION Last administered on 08/25/17 11:52; Start 08/25/17 at 11:45 Prednisone (Prednisone) 40 mg DAILY PO ; Start 08/26/17 at 09:00; Status Cancel Furosemide (Lasix) 20 mg [id number] PO Last administered on 08/26/17 09:29; Start 08/25/17 at 17:00 Hydralazine HCl (Apresoline) 25 mg BID PO Last administered on 08/26/17 09:30 ; Start 08/25/17 at 21:00 Levothyroxine Sodium (Synthroid) 50 mcg DAILY07 PO Last administered on 09:30; Start 08/26/17 at 09:00 Magnesium Oxide (Magnesium Oxide) 400 mg DAILY PO Last administered on 09:29; Start 08/25/17 at 17:00 Metformin HCl (Glucophage) 500 mg BIDWMEALS PO Last administered on 08/26/17 08:12; Start 08/25/17 at 17:00 Sennosides (Senna) 8.6 mg DAILY PO Last administered on 08/26/17 09:30; Start 08/25/17 at 17:00 Tramadol HCl (Ultram) 50 mg BID PO Last administered on 08/26/17 09:30; Start 08/25/17 at 21:00 Acetaminophen (Tylenol) 650 mg PRN Q6HRS PRN PO PAIN; Start 08/25/17 at 16:30 Insulin Detemir (Levemir) 25 units BID SQ Last administered on 08/26/17 09:46 ; Start 08/25/17 at 21:00 Potassium Chloride (KCl Oral Soln) 15 meq DAILY PO Last administered on 09:29; Start 08/26/17 at 09:00 Quetiapine Fumarate (SEROquel) 500 mg QHS PO Last administered on 08/25/17 20 :44; Start 08/25/17 at 21:00 Linagliptin (Tradjenta) 5 mg DAILY PO Last administered on 08/26/17 09:29; Start 08/26/17 at 09:00 Valproic Acid (Depakene) 1,000 mg BID PO Last administered on 08/26/17 09:47 ; Start 08/25/17 at 21:00 Lactobacillus Rhamnosus (Culturelle) 1 cap BID PO Last administered on 09:29; Start 08/25/17 at 21:00 Methylprednisolone Sodium Succinate (SOLU-Medrol 125MG VIAL) 60 mg Q12HR IV Last administered on 08/25/17 20:45; Start 08/25/17 at 21:00; Stop 08/26/17 at 09:18; Status DC Methylprednisolone Sodium Succinate (SOLU-Medrol 40MG VIAL) 30 mg Q12HR IV Last administered on 08/26/17 09:47; Start 08/26/17 at 10:00 Active Scripts Active Reported Novolog Flexpen (Insulin Aspart) 100 Unit/1 Ml Insuln.pen 1 Unit SQ TIDACHC inject per sliding scale: if 200-250= 2; 251-300=4; 301-350=6;351-400=8;401-450=10; 451-500=12 subcutaneously before meals and at bedtime. Notify provider if BS>500 or BS <70. Novolog Flexpen (Insulin Aspart) 100 Unit/1 Ml Insuln.pen 5 Unit SQ TIDAC Levemir (Insulin Detemir) 100 Unit/1 Ml Vial 25 Unit SQ BID Duoneb 0.5-3(2.5) Mg/3 Ml (Albuterol/Ipratropium) 3 Ml Ampul.neb 3 Ml NEB Q4HRS PRN Januvia (Sitagliptin Phosphate) 50 Mg Tablet 1 Tab PO DAILY Furosemide 20 Mg Tablet 20 Mg PO BID Melatonin 3 Mg Tablet 1 Tab PO QHS Potassium Chloride 10 Meq Capsule.er 15 Meq PO DAILY Mikana 3 Fish Oil Softgel (Mikana-3 Fatty Acids/Fish Oil) 1 Each Capsule.dr 1 Each PO DAILY Nystatin 1 Each Powder.ea. 100,000 Each PRN Tramadol Hcl 50 Mg Tablet 1 Tab PO BID Senokot (Sennosides) 8.6 Mg Tablet 1 Tab PO DAILY Quetiapine Fumarate 400 Mg Tablet 500 Mg PO HS Metformin Hcl 500 Mg Tablet 1 Tab PO BID Mag-Oxide (Magnesium Oxide) 400 Mg Tablet 1 Tab PO DAILY Levothyroxine Sodium 50 Mcg Tablet 1 Tab PO DAILY Hydralazine Hcl 25 Mg Tablet 1 Tab PO BID Depakene (Valproate Sodium) 250 Mg/5 Ml Solution 1,000 Mg PO BID Acetaminophen 325 Mg Capsule 650 Mg PO PRN Q6HRS PRN Vitals/I & O Vital Sign - Last 24 Hours 08/25/17 08/25/17 08/25/17 08/25/17 14:52 15:49 19:00 19:27 Temp 97.9 99.0 97.9 99.0 Pulse 98 103 Resp 22 22 B/P (MAP) 164/75 (104) 144/67 (92) Pulse Ox 95 95 97 100 O2 Delivery Nasal Cannula Nasal Cannula Nasal Cannula Nasal Cannula O2 Flow Rate 3.0 3.0 3.0 3.0 08/25/17 08/25/17 08/25/17 08/25/17 19:42 20:44 20:45 22:05 Pulse 103 B/P (MAP) 144/67 Pulse Ox 100 97 O2 Delivery Nasal Cannula Nasal Cannula BiPAP/CPAP O2 Flow Rate 3.0 3.0 08/25/17 08/25/17 08/25/17 08/25/17 23:00 23:41 23:41 23:53 Temp 99.9 99.9 Pulse 85 Resp 24 B/P (MAP) 128/59 (82) Pulse Ox 98 98 97 97 O2 Delivery Nasal Cannula Nasal Cannula BiPAP/CPAP O2 Flow Rate 3.0 3.0 08/26/17 08/26/17 08/26/17 08/26/17 01:30 03:00 03:08 07:16 Temp 98.1 97.9 98.1 97.9 Pulse 84 81 Resp 22 20 B/P (MAP) 112/58 (76) 145/69 (94) Pulse Ox 98 100 97 99 O2 Delivery BiPAP/CPAP BiPAP/CPAP BiPAP/CPAP Nasal Cannula O2 Flow Rate 3.0 3.0 08/26/17 08/26/17 08/26/17 08/26/17 07:44 09:30 09:30 11:01 Temp 98.1 98.1 Pulse 81 87 Resp 22 22 B/P (MAP) 145/69 153/84 (107) Pulse Ox 99 O2 Delivery Bi-pap Nasal Cannula O2 Flow Rate 3.0 3.0 08/26/17 08/26/17 11:03 11:09 Pulse Ox 99 99 O2 Delivery Nasal Cannula Nasal Cannula O2 Flow Rate 3.0 3.0 Intake and Output 08/25/17 08/25/17 08/26/17 15:00 23:00 07:00 Intake Total 220 ml 900 ml 360 ml Balance 220 ml 900 ml 360 ml ANGELES NIX MD Aug 26, 2017 14:04
[2017-08-26 14:31] VITALS: BP 156/72
[2017-08-26 19:00] VITALS: BP 157/59
[2017-08-26] MEDS: QUEtiapine 100 MG TABLET. PO SCH ×2 (22:26→22:33)
[2017-08-26 23:00] VITALS: BP 92/43
[2017-08-27] MEDS: IPRATRPIUM/ALBUTEROL 0.5/2.5MG 3 ML NEBU. NEB SCH ×7 (00:20→23:10)
[2017-08-27 03:00] VITALS: BP 136/64
[2017-08-27 05:32] LABS: BASO % 0 % (0-3); EOS % 0 % (0-3); HEMATOCRIT 29.8 % (36.0-47.0); HEMOGLOBIN 9.3 g/dL (12.0-15.5); LYMPH # 1.8 x10^3/uL (1.0-4.8); LYMPH % 25 % (24-48); MEAN CORPUSCULAR HEMOGLOBIN 27 pg (25-35); MEAN CORPUSCULAR HGB CONC 31 g/dL (31-37); MEAN CORPUSCULAR VOLUME 86 fL (79-100); MONO % 8 % (0-9); NEUT % 66 % (31-73); PLATELET COUNT 226 x10^3/uL (140-400); RED BLOOD COUNT 3.46 x10^6/uL (3.50-5.40); RED CELL DISTRIBUTION WIDTH 17.7 % (11.5-14.5); WHITE BLOOD COUNT 7.3 x10^3/uL (4.0-11.0)
[2017-08-27 05:57] LABS: CREATININE 1.2 mg/dL (0.6-1.0); GFR 44.9; POTASSIUM 4.4 mmol/L (3.5-5.1)
[2017-08-27] MEDS: LEVOTHYROXINE 50 MCG TABLET PO SCH (06:12)
[2017-08-27 07:00] VITALS: BP 99/55
[2017-08-27] MEDS: INSULIN ASPART 300 UNITS/3 ML INSULN.PEN SQ SCH ×3 (08:00→17:39)
[2017-08-27] MEDS: methylPREDNISolone SOD SUCC PF 40 MG/ML VIAL. IV SCH (08:26)
[2017-08-27] MEDS: LACTOBACILLUS RHAMNOSUS GG 1 CAPSULE. PO SCH ×2 (08:26→21:16)
[2017-08-27] MEDS: NICOTINE 21MG PATCH. TD SCH (08:27)
[2017-08-27] MEDS: SENNOSIDES 8.6 MG TABLET PO SCH (08:27)
[2017-08-27] MEDS: metFORMIN 500 MG TABLET PO SCH (08:27)
[2017-08-27] MEDS: traMADol 50 MG TABLET PO SCH ×2 (08:27→21:17)
[2017-08-27] MEDS: LINAGLIPTIN 5 MG TABLET PO SCH (08:27)
[2017-08-27] MEDS: hydrALAZINE 25 MG TABLET PO SCH ×2 (08:28→21:17)
[2017-08-27] MEDS: MAGNESIUM OXIDE 400 MG TABLET PO SCH (08:28)
[2017-08-27] MEDS: INSULIN DETEMIR 300 UNITS/3 ML INSULN.PEN. SQ SCH ×2 (08:28→21:16)
[2017-08-27] MEDS: FUROSEMIDE 20 MG TABLET PO SCH ×2 (08:28→14:00)
[2017-08-27 11:00] VITALS: BP 129/55
[2017-08-27] MEDS: VALPROIC ACID 250 MG CAPSULE. PO SCH ×2 (11:08→21:16)
--- NOTE | 2017-08-27 11:10 | PDOC ---
PULMONARY PROGRESS NOTES Subjective NO SOA Vitals Vital Signs Date Time Temp Pulse Resp B/P (MAP) Pulse Ox O2 Delivery O2 Flow Rate FiO2 08/27/17 08:28 84 99/55 08/27/17 08:27 Nasal Cannula 3.0 08/27/17 07:55 95 08/27/17 07:00 96.8 20 96.8 General: Alert, No acute distress Lungs: Clear Cardiovascular: S1, S2 Abdomen: Soft Neuro Exam: Alert Extremities: Other (1+EDEMA) Skin: Warm Labs Laboratory Tests Test 08/25/17 12:31 08/25/17 17:05 08/25/17 20:48 08/26/17 05:25 Glucose (Fingerstick) 409 mg/dL (70-99) 348 mg/dL (70-99) 296 mg/dL (70-99) White Blood Count 5.9 x10^3/uL (4.0-11.0) Red Blood Count 3.27 x10^6/uL (3.50-5.40) Hemoglobin 8.9 g/dL (12.0-15.5) Hematocrit 29.2 % (36.0-47.0) Mean Corpuscular Volume 89 fL (79-100) Mean Corpuscular Hemoglobin 27 pg (25-35) Mean Corpuscular Hemoglobin Concent 30 g/dL (31-37) Red Cell Distribution Width 18.6 % (11.5-14.5) Platelet Count 202 x10^3/uL (140-400) Neutrophils (%) (Auto) 84 % (31-73) Lymphocytes (%) (Auto) 13 % (24-48) Monocytes (%) (Auto) 3 % (0-9) Eosinophils (%) (Auto) 0 % (0-3) Basophils (%) (Auto) 0 % (0-3) Neutrophils # (Auto) 4.9 x10^3uL (1.8-7.7) Lymphocytes # (Auto) 0.8 x10^3/uL (1.0-4.8) Monocytes # (Auto) 0.2 x10^3/uL (0.0-1.1) Eosinophils # (Auto) 0.0 x10^3/uL (0.0-0.7) Basophils # (Auto) 0.0 x10^3/uL (0.0-0.2) Test 08/26/17 07:02 08/26/17 07:10 08/26/17 11:54 08/26/17 16:14 Glucose (Fingerstick) 278 mg/dL (70-99) 169 mg/dL (70-99) 289 mg/dL (70-99) Sodium Level 141 mmol/L (136-145) Potassium Level 5.4 mmol/L (3.5-5.1) Chloride Level 105 mmol/L (98-107) Carbon Dioxide Level 32 mmol/L (21-32) Anion Gap 4 (6-14) Blood Urea Nitrogen 36 mg/dL (7-20) Creatinine 1.3 mg/dL (0.6-1.0) Estimated GFR (Cockcroft-Gault) 41.0 Glucose Level 304 mg/dL (70-99) Calcium Level 9.2 mg/dL (8.5-10.1) Test 08/26/17 21:19 08/27/17 04:21 08/27/17 07:46 Glucose (Fingerstick) 217 mg/dL (70-99) 75 mg/dL (70-99) White Blood Count 7.3 x10^3/uL (4.0-11.0) Red Blood Count 3.46 x10^6/uL (3.50-5.40) Hemoglobin 9.3 g/dL (12.0-15.5) Hematocrit 29.8 % (36.0-47.0) Mean Corpuscular Volume 86 fL (79-100) Mean Corpuscular Hemoglobin 27 pg (25-35) Mean Corpuscular Hemoglobin Concent 31 g/dL (31-37) Red Cell Distribution Width 17.7 % (11.5-14.5) Platelet Count 226 x10^3/uL (140-400) Neutrophils (%) (Auto) 66 % (31-73) Lymphocytes (%) (Auto) 25 % (24-48) Monocytes (%) (Auto) 8 % (0-9) Eosinophils (%) (Auto) 0 % (0-3) Basophils (%) (Auto) 0 % (0-3) Neutrophils # (Auto) 4.8 x10^3uL (1.8-7.7) Lymphocytes # (Auto) 1.8 x10^3/uL (1.0-4.8) Monocytes # (Auto) 0.6 x10^3/uL (0.0-1.1) Eosinophils # (Auto) 0.0 x10^3/uL (0.0-0.7) Basophils # (Auto) 0.0 x10^3/uL (0.0-0.2) Sodium Level 141 mmol/L (136-145) Potassium Level 4.4 mmol/L (3.5-5.1) Chloride Level 104 mmol/L (98-107) Carbon Dioxide Level 30 mmol/L (21-32) Anion Gap 7 (6-14) Blood Urea Nitrogen 38 mg/dL (7-20) Creatinine 1.2 mg/dL (0.6-1.0) Estimated GFR (Cockcroft-Gault) 44.9 Glucose Level 117 mg/dL (70-99) Calcium Level 9.0 mg/dL (8.5-10.1) Laboratory Tests Test 08/26/17 11:54 08/26/17 16:14 08/26/17 21:19 08/27/17 04:21 Glucose (Fingerstick) 169 mg/dL (70-99) 289 mg/dL (70-99) 217 mg/dL (70-99) White Blood Count 7.3 x10^3/uL (4.0-11.0) Red Blood Count 3.46 x10^6/uL (3.50-5.40) Hemoglobin 9.3 g/dL (12.0-15.5) Hematocrit 29.8 % (36.0-47.0) Mean Corpuscular Volume 86 fL (79-100) Mean Corpuscular Hemoglobin 27 pg (25-35) Mean Corpuscular Hemoglobin Concent 31 g/dL (31-37) Red Cell Distribution Width 17.7 % (11.5-14.5) Platelet Count 226 x10^3/uL (140-400) Neutrophils (%) (Auto) 66 % (31-73) Lymphocytes (%) (Auto) 25 % (24-48) Monocytes (%) (Auto) 8 % (0-9) Eosinophils (%) (Auto) 0 % (0-3) Basophils (%) (Auto) 0 % (0-3) Neutrophils # (Auto) 4.8 x10^3uL (1.8-7.7) Lymphocytes # (Auto) 1.8 x10^3/uL (1.0-4.8) Monocytes # (Auto) 0.6 x10^3/uL (0.0-1.1) Eosinophils # (Auto) 0.0 x10^3/uL (0.0-0.7) Basophils # (Auto) 0.0 x10^3/uL (0.0-0.2) Sodium Level 141 mmol/L (136-145) Potassium Level 4.4 mmol/L (3.5-5.1) Chloride Level 104 mmol/L (98-107) Carbon Dioxide Level 30 mmol/L (21-32) Anion Gap 7 (6-14) Blood Urea Nitrogen 38 mg/dL (7-20) Creatinine 1.2 mg/dL (0.6-1.0) Estimated GFR (Cockcroft-Gault) 44.9 Glucose Level 117 mg/dL (70-99) Calcium Level 9.0 mg/dL (8.5-10.1) Test 08/27/17 07:46 Glucose (Fingerstick) 75 mg/dL (70-99) Medications Active Scripts Medications Dose Route/Sig Max Daily Dose Days Date Category Tresiba Flextouch U-200 (Insulin Degludec) 200 Unit/1 Ml Insuln.pen 20 Unit SQ HS 09/08/16 Reported Vitamin D3 (Cholecalciferol (Vitamin D3)) 1,000 Unit Tablet 1,000 Unit PO 09/08/16 Reported Famotidine 20 Mg Tablet 20 Mg PO HS 09/08/16 Reported [Compound ABH ] 05/19/16 Reported Vitamin D (Cholecalciferol (Vitamin D3)) 1,000 Unit Capsule 1 Cap PO DAILY 05/19/16 Reported Seroquel (Quetiapine Fumarate) 100 Mg Tablet 1 Tab PO DAILY 05/19/16 Reported Senokot (Sennosides) 8.6 Mg Tablet 1 Tab PO DAILY 05/19/16 Reported Remeron (Mirtazapine) 15 Mg Tablet 1 Tab PO QHS 05/19/16 Reported Quetiapine Fumarate 400 Mg Tablet 400 Mg PO HS 05/19/16 Reported Seroquel (Quetiapine Fumarate) 300 Mg Tablet 1 Tab PO DAILY 05/19/16 Reported Potassium Chloride Oral Liquid (Potassium Chloride) 40 Meq/15 Ml Liquid 40 Meq PEG DAILY 05/19/16 Reported Nystatin 15 Gm Cream..g. 1 Romelia TP BID 05/19/16 Reported Multi-Day Vitamins (Multivitamin) 1 Each Tablet 1 Tab PO DAILY 05/19/16 Reported Miralax (Polyethylene Glycol 3350) 17 Gm Powd.pack 1 Packet PO PRN DAILY PRN 05/19/16 Reported Metformin Hcl 500 Mg Tablet 1 Tab PO BID 05/19/16 Reported Mag-Oxide (Magnesium Oxide) 400 Mg Tablet 1 Tab PO DAILY 05/19/16 Reported Milk Of Magnesia (Magnesium Hydroxide) 400 Mg/5 Ml Oral.susp 30 Ml PO PRN DAILY PRN 05/19/16 Reported Levothyroxine Sodium 50 Mcg Tablet 1 Tab PO DAILY 05/19/16 Reported Hydralazine Hcl 25 Mg Tablet 1 Tab PO BID 05/19/16 Reported Glimepiride 1 Mg Tablet 1 Tab PO BID 05/19/16 Reported Furosemide 40 Mg Tablet 40 Mg PO BID 05/19/16 Reported Depakene (Valproate Sodium) 250 Mg/5 Ml Solution 1,000 Mg PO BID 05/19/16 Reported Ventolin Hfa Inhaler (Albuterol Sulfate) 18 Gm Hfa.aer.ad 2 Puff INH BID 05/19/16 Reported Acetaminophen 325 Mg Capsule 650 Mg PO PRN Q6HRS PRN 05/19/16 Reported Impression . I 1. Acute on chronic hypercapnia/ hypoxemic respiratory failure, present upon admission. improved ABG 2. Acute combination of toxic and metabolic encephalopathy, present upon admission. 3. History of schizophrenia. 4. Abnormal x-ray compatible with pneumonia, present upon admission. (right basal infiltrate) 5. Severe protein malnutrition, present upon admission. 6. Negative urine drug screen. 7. Chronic anemia. 8. Acute kidney failure. Plan . CLINICALLY IMPROVING/PROBABLE BASELINE STATUS BIPAP QHS /PRN DURING DAY REPEAT ABG IMPROVED ANTIBX LEVAQUIN TAPER STEROIDS NEBS OK WITH DC AMARILYS ESTEVES MD Aug 27, 2017 11:10
[2017-08-27 15:03] VITALS: BP 140/61
--- NOTE | 2017-08-27 16:00 | PDOC ---
PROGRESS NOTES Chief Complaint Chief Complaint 1. Encephalopathy, acute: toxic and metabolic. 1:1 sitter. try to stop 2. COPD exacerbation: on steroids (tapering), nebs, suppl O2; BiPAP at night 3. PNA RLL: on azithro, levaquin 4. UTI: empiric coverage with above Abx. prelim cult NGTD 5. TRISTON: suspect vasomotor etiology. improving. monitor with IVF 6. Hyperkalemia: new. restart lasix, hold oral repletion 7. DM2: worse today. prob affected by steroids and increased PO intake. ISS, restart oral home meds, STOP metformin DUE TO RENAL FAILURE 8. Anemia: chronic inflammation. on PO iron 9. Schizophrenia: on antipsychotics 10. PCM: severe POA, although hypoalbuminemia partly due to inflammation 11. Dispo: OT/PT eval; lives in [place] 12. ACUTE RENAL FAILURE History of Present Illness History of Present Illness more alert today, visiting with sister. no c/o Vitals Vitals Vital Signs Date Time Temp Pulse Resp B/P (MAP) Pulse Ox O2 Delivery O2 Flow Rate FiO2 08/27/17 15:03 98.1 91 19 140/61 (87) 93 Nasal Cannula 3.0 98.1 Physical Exam General: Alert, Cooperative, No acute distress Heart: Regular rate Lungs: Clear Abdomen: Normal bowel sounds, No tenderness Extremities: No edema Skin: No rashes Labs LABS Laboratory Tests Test 08/26/17 16:14 08/26/17 21:19 08/27/17 04:21 08/27/17 07:46 Glucose (Fingerstick) 289 mg/dL (70-99) 217 mg/dL (70-99) 75 mg/dL (70-99) White Blood Count 7.3 x10^3/uL (4.0-11.0) Red Blood Count 3.46 x10^6/uL (3.50-5.40) Hemoglobin 9.3 g/dL (12.0-15.5) Hematocrit 29.8 % (36.0-47.0) Mean Corpuscular Volume 86 fL (79-100) Mean Corpuscular Hemoglobin 27 pg (25-35) Mean Corpuscular Hemoglobin Concent 31 g/dL (31-37) Red Cell Distribution Width 17.7 % (11.5-14.5) Platelet Count 226 x10^3/uL (140-400) Neutrophils (%) (Auto) 66 % (31-73) Lymphocytes (%) (Auto) 25 % (24-48) Monocytes (%) (Auto) 8 % (0-9) Eosinophils (%) (Auto) 0 % (0-3) Basophils (%) (Auto) 0 % (0-3) Neutrophils # (Auto) 4.8 x10^3uL (1.8-7.7) Lymphocytes # (Auto) 1.8 x10^3/uL (1.0-4.8) Monocytes # (Auto) 0.6 x10^3/uL (0.0-1.1) Eosinophils # (Auto) 0.0 x10^3/uL (0.0-0.7) Basophils # (Auto) 0.0 x10^3/uL (0.0-0.2) Sodium Level 141 mmol/L (136-145) Potassium Level 4.4 mmol/L (3.5-5.1) Chloride Level 104 mmol/L (98-107) Carbon Dioxide Level 30 mmol/L (21-32) Anion Gap 7 (6-14) Blood Urea Nitrogen 38 mg/dL (7-20) Creatinine 1.2 mg/dL (0.6-1.0) Estimated GFR (Cockcroft-Gault) 44.9 Glucose Level 117 mg/dL (70-99) Calcium Level 9.0 mg/dL (8.5-10.1) Test 08/27/17 11:12 Glucose (Fingerstick) 137 mg/dL (70-99) Assessment and Plan Assessmemt and Plan Problems Medical Problems: (1) Altered mental status Status: Acute (2) COPD exacerbation Status: Acute (3) Generalized weakness Status: Acute (4) Right lower lobe pneumonia Status: Acute Chief Complaint Chief Complaint 1. Encephalopathy, acute: toxic and metabolic. slowly improving. has had 1: 1 sitter. try to stop 2. COPD exacerbation: on steroids (tapering), nebs, suppl O2; BiPAP at night 3. PNA RLL: on azithro, levaquin 4. UTI: empiric coverage with above Abx. prelim cult NGTD 5. TRISTON: suspect vasomotor etiology. improving. monitor with IVF 6. Hyperkalemia: new. restart lasix, hold oral repletion 7. DM2: worse today. prob affected by steroids and increased PO intake. ISS, restart oral home meds, STOP metformin DUE TO GFR 8. Anemia: chronic inflammation. on PO iron 9. Schizophrenia: on antipsychotics 10. PCM: severe POA, although hypoalbuminemia partly due to inflammation 11. Dispo: OT/PT eval; lives in [place] D/C PLANNING SOON WHEN RENAL FX OK Problems: Comment Review of Relevant I have reviewed the following items rolanda (where applicable) has been applied. Labs Laboratory Tests Test 08/25/17 17:05 08/25/17 20:48 08/26/17 05:25 08/26/17 07:02 Glucose (Fingerstick) 348 mg/dL (70-99) 296 mg/dL (70-99) 278 mg/dL (70-99) White Blood Count 5.9 x10^3/uL (4.0-11.0) Red Blood Count 3.27 x10^6/uL (3.50-5.40) Hemoglobin 8.9 g/dL (12.0-15.5) Hematocrit 29.2 % (36.0-47.0) Mean Corpuscular Volume 89 fL (79-100) Mean Corpuscular Hemoglobin 27 pg (25-35) Mean Corpuscular Hemoglobin Concent 30 g/dL (31-37) Red Cell Distribution Width 18.6 % (11.5-14.5) Platelet Count 202 x10^3/uL (140-400) Neutrophils (%) (Auto) 84 % (31-73) Lymphocytes (%) (Auto) 13 % (24-48) Monocytes (%) (Auto) 3 % (0-9) Eosinophils (%) (Auto) 0 % (0-3) Basophils (%) (Auto) 0 % (0-3) Neutrophils # (Auto) 4.9 x10^3uL (1.8-7.7) Lymphocytes # (Auto) 0.8 x10^3/uL (1.0-4.8) Monocytes # (Auto) 0.2 x10^3/uL (0.0-1.1) Eosinophils # (Auto) 0.0 x10^3/uL (0.0-0.7) Basophils # (Auto) 0.0 x10^3/uL (0.0-0.2) Test 08/26/17 07:10 08/26/17 11:54 08/26/17 16:14 08/26/17 21:19 Sodium Level 141 mmol/L (136-145) Potassium Level 5.4 mmol/L (3.5-5.1) Chloride Level 105 mmol/L (98-107) Carbon Dioxide Level 32 mmol/L (21-32) Anion Gap 4 (6-14) Blood Urea Nitrogen 36 mg/dL (7-20) Creatinine 1.3 mg/dL (0.6-1.0) Estimated GFR (Cockcroft-Gault) 41.0 Glucose Level 304 mg/dL (70-99) Calcium Level 9.2 mg/dL (8.5-10.1) Glucose (Fingerstick) 169 mg/dL (70-99) 289 mg/dL (70-99) 217 mg/dL (70-99) Test 08/27/17 04:21 08/27/17 07:46 08/27/17 11:12 White Blood Count 7.3 x10^3/uL (4.0-11.0) Red Blood Count 3.46 x10^6/uL (3.50-5.40) Hemoglobin 9.3 g/dL (12.0-15.5) Hematocrit 29.8 % (36.0-47.0) Mean Corpuscular Volume 86 fL (79-100) Mean Corpuscular Hemoglobin 27 pg (25-35) Mean Corpuscular Hemoglobin Concent 31 g/dL (31-37) Red Cell Distribution Width 17.7 % (11.5-14.5) Platelet Count 226 x10^3/uL (140-400) Neutrophils (%) (Auto) 66 % (31-73) Lymphocytes (%) (Auto) 25 % (24-48) Monocytes (%) (Auto) 8 % (0-9) Eosinophils (%) (Auto) 0 % (0-3) Basophils (%) (Auto) 0 % (0-3) Neutrophils # (Auto) 4.8 x10^3uL (1.8-7.7) Lymphocytes # (Auto) 1.8 x10^3/uL (1.0-4.8) Monocytes # (Auto) 0.6 x10^3/uL (0.0-1.1) Eosinophils # (Auto) 0.0 x10^3/uL (0.0-0.7) Basophils # (Auto) 0.0 x10^3/uL (0.0-0.2) Sodium Level 141 mmol/L (136-145) Potassium Level 4.4 mmol/L (3.5-5.1) Chloride Level 104 mmol/L (98-107) Carbon Dioxide Level 30 mmol/L (21-32) Anion Gap 7 (6-14) Blood Urea Nitrogen 38 mg/dL (7-20) Creatinine 1.2 mg/dL (0.6-1.0) Estimated GFR (Cockcroft-Gault) 44.9 Glucose Level 117 mg/dL (70-99) Calcium Level 9.0 mg/dL (8.5-10.1) Glucose (Fingerstick) 75 mg/dL (70-99) 137 mg/dL (70-99) Laboratory Tests Test 08/26/17 16:14 08/26/17 21:19 08/27/17 04:21 08/27/17 07:46 Glucose (Fingerstick) 289 mg/dL (70-99) 217 mg/dL (70-99) 75 mg/dL (70-99) White Blood Count 7.3 x10^3/uL (4.0-11.0) Red Blood Count 3.46 x10^6/uL (3.50-5.40) Hemoglobin 9.3 g/dL (12.0-15.5) Hematocrit 29.8 % (36.0-47.0) Mean Corpuscular Volume 86 fL (79-100) Mean Corpuscular Hemoglobin 27 pg (25-35) Mean Corpuscular Hemoglobin Concent 31 g/dL (31-37) Red Cell Distribution Width 17.7 % (11.5-14.5) Platelet Count 226 x10^3/uL (140-400) Neutrophils (%) (Auto) 66 % (31-73) Lymphocytes (%) (Auto) 25 % (24-48) Monocytes (%) (Auto) 8 % (0-9) Eosinophils (%) (Auto) 0 % (0-3) Basophils (%) (Auto) 0 % (0-3) Neutrophils # (Auto) 4.8 x10^3uL (1.8-7.7) Lymphocytes # (Auto) 1.8 x10^3/uL (1.0-4.8) Monocytes # (Auto) 0.6 x10^3/uL (0.0-1.1) Eosinophils # (Auto) 0.0 x10^3/uL (0.0-0.7) Basophils # (Auto) 0.0 x10^3/uL (0.0-0.2) Sodium Level 141 mmol/L (136-145) Potassium Level 4.4 mmol/L (3.5-5.1) Chloride Level 104 mmol/L (98-107) Carbon Dioxide Level 30 mmol/L (21-32) Anion Gap 7 (6-14) Blood Urea Nitrogen 38 mg/dL (7-20) Creatinine 1.2 mg/dL (0.6-1.0) Estimated GFR (Cockcroft-Gault) 44.9 Glucose Level 117 mg/dL (70-99) Calcium Level 9.0 mg/dL (8.5-10.1) Test 08/27/17 11:12 Glucose (Fingerstick) 137 mg/dL (70-99) Microbiology 08/23/17 Blood Culture - Preliminary, Resulted NO GROWTH AFTER 4 DAYS 08/23/17 Urine Culture - Final, Complete 08/23/17 Urine Culture Result 1 (ANNMARIE) - Final, Complete Medications Current Medications Sodium Chloride 1,000 ml @ 100 mls/hr Q10H IV Last administered on 08/23/17 12:40; Start 08/23/17 at 12:19; Stop 08/23/17 at 22:18; Status DC Albuterol/ Ipratropium (Duoneb) 3 ml 1X ONCE NEB Last administered on 12:54; Start 08/23/17 at 12:30; Stop 08/23/17 at 12:31; Status DC Methylprednisolone Sodium Succinate (SOLU-Medrol 125MG VIAL) 125 mg 1X ONCE IV Last administered on 08/23/17 12:40; Start 08/23/17 at 12:30; Stop 08/23/17 at 12:31; Status DC Albuterol Sulfate (Ventolin Neb Soln) 10 mg 1X ONCE CONT NEB Last administered on 08/23/17 12:54; Start 08/23/17 at 12:30; Stop 08/23/17 at 12:31 ; Status DC Ondansetron HCl (Zofran) 4 mg PRN Q8HRS PRN IV NAUSEA/VOMITING; Start 08/23/17 at 15:00; Stop 08/24/17 at 14:59; Status DC Fentanyl Citrate (Fentanyl 2ml Vial) 50 mcg PRN Q2HR PRN IV PAIN; Start at 15:00; Stop 08/24/17 at 09:49; Status DC Sodium Chloride 1,000 ml 1454 STAT IV ; Start 08/23/17 at 14:54; Stop 08/23/17 at 15:07; Status DC Acetaminophen (Tylenol) 650 mg PRN Q4HRS PRN PO FEVER; Start 08/23/17 at 15:00 ; Stop 08/24/17 at 14:59; Status DC Albuterol/ Ipratropium (Duoneb) 3 ml RTQID NEB Last administered on 08/23/17 15:43; Start 08/23/17 at 16:00; Stop 08/23/17 at 17:29; Status DC Sodium Chloride 1,000 ml @ 1,000 mls/hr Q1H IV Last administered on 08/23/17 15:33; Start 08/23/17 at 15:15; Stop 08/23/17 at 16:14; Status DC Ceftriaxone Sodium 50 ml @ 100 mls/hr 1X ONCE IV Last administered on 15:33; Start 08/23/17 at 15:15; Stop 08/23/17 at 15:44; Status DC Azithromycin 250 ml @ 250 mls/hr 1X ONCE IV Last administered on 08/23/17 16 :15; Start 08/23/17 at 15:15; Stop 08/23/17 at 16:14; Status DC Albuterol/ Ipratropium (Duoneb) 3 ml Q4HRS NEB Last administered on 08/27/17 11:42; Start 08/23/17 at 20:00 Insulin Aspart (NovoLOG) 0-7 UNITS TIDWMEALS SQ Last administered on 17:07; Start 08/24/17 at 08:00 Dextrose (Dextrose 50%-Water Syringe) 12.5 gm PRN Q15MIN PRN IV SEE COMMENTS; Start 08/23/17 at 17:30 Levofloxacin (Levaquin) 250 mg QHS PO ; Start 08/23/17 at 18:30; Stop 08/23/17 at 19:40; Status DC Sodium Chloride 1,000 ml @ 75 mls/hr [id number] IV Last administered on 17:58; Start 08/23/17 at 18:30; Stop 08/24/17 at 10:45; Status DC Info (Do NOT chart on this placeholder) 0.5 each PRN DAILY PRN MC PRN; Start 08/23/17 at 18:45; Status Cancel Methylprednisolone Sodium Succinate (SOLU-Medrol 40MG VIAL) 60 mg Q12HR IV Last administered on 08/25/17 08:12; Start 08/23/17 at 21:00; Stop 08/25/17 at 16:30; Status DC Insulin Detemir (Levemir) 25 units 1X ONCE SQ Last administered on 08/23/17 22:36; Start 08/23/17 at 21:00; Stop 08/23/17 at 21:01; Status DC Levofloxacin/ Dextrose 50 ml @ 50 mls/hr Q24H IV Last administered on 21:04; Start 08/23/17 at 20:00 Lorazepam (Ativan) 2 mg PRN Q6HRS PRN IV ANXIETY / AGITATION Last administered on 08/24/17 04:03; Start 08/23/17 at 21:30; Stop 08/24/17 at 10:45; Status DC Nicotine (Nicoderm Cq 21mg) 1 patch DAILY TD Last administered on 08/27/17 08 :27; Start 08/23/17 at 22:00 Lorazepam (Ativan) 0.5 mg PRN Q8HRS PRN PO ANXIETY / AGITATION Last administered on 08/26/17 09:29; Start 08/24/17 at 10:45 Haloperidol Lactate (Haldol) 3 mg 1X ONCE IVP Last administered on 08/24/17 15:45; Start 08/24/17 at 15:45; Stop 08/24/17 at 15:46; Status DC Influenza Virus Vaccine Quadrival (Fluarix Quad [id number] Syringe) 0.5 ml ONCE ONCE VAX IM ; Start 08/24/17 at 17:00; Stop 08/24/17 at 17:01; Status DC Haloperidol Lactate (Haldol) 5 mg PRN Q6HRS PRN IVP AGITATION Last administered on 08/25/17 11:52; Start 08/25/17 at 11:45 Prednisone (Prednisone) 40 mg DAILY PO ; Start 08/26/17 at 09:00; Status Cancel Furosemide (Lasix) 20 mg [id number] PO Last administered on 08/27/17 14:00; Start 08/25/17 at 17:00 Hydralazine HCl (Apresoline) 25 mg BID PO Last administered on 08/26/17 22:33 ; Start 08/25/17 at 21:00 Levothyroxine Sodium (Synthroid) 50 mcg DAILY07 PO Last administered on 06:12; Start 08/26/17 at 09:00 Magnesium Oxide (Magnesium Oxide) 400 mg DAILY PO Last administered on 08:28; Start 08/25/17 at 17:00 Metformin HCl (Glucophage) 500 mg BIDWMEALS PO Last administered on 08/27/17 08:27; Start 08/25/17 at 17:00 Sennosides (Senna) 8.6 mg DAILY PO Last administered on 08/27/17 08:27; Start 08/25/17 at 17:00 Tramadol HCl (Ultram) 50 mg BID PO Last administered on 08/27/17 08:27; Start 08/25/17 at 21:00 Acetaminophen (Tylenol) 650 mg PRN Q6HRS PRN PO PAIN; Start 08/25/17 at 16:30 Insulin Detemir (Levemir) 25 units BID SQ Last administered on 08/26/17 22:24 ; Start 08/25/17 at 21:00 Potassium Chloride (KCl Oral Soln) 15 meq DAILY PO Last administered on 09:29; Start 08/26/17 at 09:00; Stop 08/26/17 at 15:35; Status DC Quetiapine Fumarate (SEROquel) 500 mg QHS PO Last administered on 08/26/17 22 :33; Start 08/25/17 at 21:00 Linagliptin (Tradjenta) 5 mg DAILY PO Last administered on 08/27/17 08:27; Start 08/26/17 at 09:00 Valproic Acid (Depakene) 1,000 mg BID PO Last administered on 08/27/17 11:08 ; Start 08/25/17 at 21:00 Lactobacillus Rhamnosus (Culturelle) 1 cap BID PO Last administered on 08:26; Start 08/25/17 at 21:00 Methylprednisolone Sodium Succinate (SOLU-Medrol 125MG VIAL) 60 mg Q12HR IV Last administered on 08/25/17 20:45; Start 08/25/17 at 21:00; Stop 08/26/17 at 09:18; Status DC Methylprednisolone Sodium Succinate (SOLU-Medrol 40MG VIAL) 30 mg Q12HR IV Last administered on 08/27/17 08:26; Start 08/26/17 at 10:00; Stop 08/27/17 at 11:11; Status DC Methylprednisolone Sodium Succinate (SOLU-Medrol 40MG VIAL) 30 mg QD IV ; Start 08/28/17 at 09:00 Active Scripts Active Reported Novolog Flexpen (Insulin Aspart) 100 Unit/1 Ml Insuln.pen 1 Unit SQ TIDACHC inject per sliding scale: if 200-250= 2; 251-300=4; 301-350=6;351-400=8;401-450=10; 451-500=12 subcutaneously before meals and at bedtime. Notify provider if BS>500 or BS <70. Novolog Flexpen (Insulin Aspart) 100 Unit/1 Ml Insuln.pen 5 Unit SQ TIDAC Levemir (Insulin Detemir) 100 Unit/1 Ml Vial 25 Unit SQ BID Duoneb 0.5-3(2.5) Mg/3 Ml (Albuterol/Ipratropium) 3 Ml Ampul.neb 3 Ml NEB Q4HRS PRN Januvia (Sitagliptin Phosphate) 50 Mg Tablet 1 Tab PO DAILY Furosemide 20 Mg Tablet 20 Mg PO BID Melatonin 3 Mg Tablet 1 Tab PO QHS Potassium Chloride 10 Meq Capsule.er 15 Meq PO DAILY Cove 3 Fish Oil Softgel (Cove-3 Fatty Acids/Fish Oil) 1 Each Capsule.dr 1 Each PO DAILY Nystatin 1 Each Powder.ea. 100,000 Each PRN Tramadol Hcl 50 Mg Tablet 1 Tab PO BID Senokot (Sennosides) 8.6 Mg Tablet 1 Tab PO DAILY Quetiapine Fumarate 400 Mg Tablet 500 Mg PO HS Metformin Hcl 500 Mg Tablet 1 Tab PO BID Mag-Oxide (Magnesium Oxide) 400 Mg Tablet 1 Tab PO DAILY Levothyroxine Sodium 50 Mcg Tablet 1 Tab PO DAILY Hydralazine Hcl 25 Mg Tablet 1 Tab PO BID Depakene (Valproate Sodium) 250 Mg/5 Ml Solution 1,000 Mg PO BID Acetaminophen 325 Mg Capsule 650 Mg PO PRN Q6HRS PRN Vitals/I & O Vital Sign - Last 24 Hours 08/26/17 08/26/17 08/26/17 08/26/17 16:51 19:00 19:56 20:00 Temp 98.1 98.1 Pulse 91 Resp 22 B/P (MAP) 157/59 (91) Pulse Ox 97 98 100 O2 Delivery Nasal Cannula Nasal Cannula Nasal Cannula Bi-pap O2 Flow Rate 3.0 3.0 3.0 3.0 08/26/17 08/26/17 08/26/17 08/26/17 22:33 22:33 23:00 23:05 Temp 97.9 97.9 Pulse 91 65 Resp 22 B/P (MAP) 157/59 92/43 (59) Pulse Ox 100 96 O2 Delivery Nasal Cannula BiPAP/CPAP O2 Flow Rate 3.0 3.0 08/26/17 08/27/17 08/27/17 08/27/17 23:33 00:44 03:00 03:01 Temp 97.9 97.9 Pulse 88 Resp 20 B/P (MAP) 136/64 (88) Pulse Ox 100 98 96 O2 Delivery BiPAP/CPAP Nasal Cannula Nasal Cannula O2 Flow Rate 3.0 3.0 08/27/17 08/27/17 08/27/17 08/27/17 07:00 07:55 08:00 08:27 Temp 96.8 96.8 Pulse 84 Resp 20 B/P (MAP) 99/55 (70) Pulse Ox 96 95 O2 Delivery Nasal Cannula Nasal Cannula Nasal Cannula Nasal Cannula O2 Flow Rate 3.0 3.0 3.0 3.0 12/12/17 12/12/17 12/12/17 12/12/17 08:28 11:00 11:08 11:44 Temp 96.9 96.9 Pulse 84 87 Resp 19 B/P (MAP) 99/55 129/55 (79) Pulse Ox 93 O2 Delivery Nasal Cannula Nasal Cannula Nasal Cannula O2 Flow Rate 3.0 3.0 3.0 08/27/17 15:03 Temp 98.1 98.1 Pulse 91 Resp 19 B/P (MAP) 140/61 (87) Pulse Ox 93 O2 Delivery Nasal Cannula O2 Flow Rate 3.0 Intake and Output 08/26/17 08/26/17 08/27/17 15:00 23:00 07:00 Intake Total 1272 ml 850 ml 440 ml Balance 1272 ml 850 ml 440 ml [email or web address] WINTERS MD Aug 27, 2017 16:00
[2017-08-27 19:00] VITALS: BP 82/58
[2017-08-27] MEDS: QUEtiapine 100 MG TABLET. PO SCH (21:17)
[2017-08-27 23:00] VITALS: BP 116/56
[2017-08-28 03:10] VITALS: BP 106/53
[2017-08-28] MEDS: IPRATRPIUM/ALBUTEROL 0.5/2.5MG 3 ML NEBU. NEB SCH ×6 (04:09→23:46)
[2017-08-28] MEDS: LEVOTHYROXINE 50 MCG TABLET PO SCH (05:30)
[2017-08-28 05:44] LABS: BASO % 0 % (0-3); EOS % 1 % (0-3); HEMATOCRIT 30.3 % (36.0-47.0); HEMOGLOBIN 9.5 g/dL (12.0-15.5); LYMPH # 1.9 x10^3/uL (1.0-4.8); LYMPH % 24 % (24-48); MEAN CORPUSCULAR HEMOGLOBIN 27 pg (25-35); MEAN CORPUSCULAR HGB CONC 31 g/dL (31-37); MEAN CORPUSCULAR VOLUME 86 fL (79-100); MONO % 8 % (0-9); NEUT % 68 % (31-73); PLATELET COUNT 224 x10^3/uL (140-400); RED BLOOD COUNT 3.52 x10^6/uL (3.50-5.40); RED CELL DISTRIBUTION WIDTH 17.9 % (11.5-14.5)
[2017-08-28 06:21] LABS: CALCIUM 8.9 mg/dL (8.5-10.1); CREATININE 1.5 mg/dL (0.6-1.0); GFR 34.7; POTASSIUM 4.3 mmol/L (3.5-5.1)
[2017-08-28 07:00] VITALS: BP 109/48
[2017-08-28] MEDS: INSULIN ASPART 300 UNITS/3 ML INSULN.PEN SQ SCH ×3 (08:00→17:25)
[2017-08-28] MEDS: FUROSEMIDE 20 MG TABLET PO SCH ×2 (09:00→14:24)
[2017-08-28] MEDS: methylPREDNISolone SOD SUCC PF 40 MG/ML VIAL. IV SCH (09:00)
[2017-08-28] MEDS: INSULIN DETEMIR 300 UNITS/3 ML INSULN.PEN. SQ SCH ×2 (09:00→20:44)
[2017-08-28] MEDS: LACTOBACILLUS RHAMNOSUS GG 1 CAPSULE. PO SCH ×2 (09:00→20:35)
[2017-08-28] MEDS: NICOTINE 21MG PATCH. TD SCH (09:00)
[2017-08-28] MEDS: LINAGLIPTIN 5 MG TABLET PO SCH (09:00)
[2017-08-28] MEDS: VALPROIC ACID 250 MG CAPSULE. PO SCH ×2 (09:00→20:37)
[2017-08-28] MEDS: MAGNESIUM OXIDE 400 MG TABLET PO SCH (09:00)
[2017-08-28] MEDS: traMADol 50 MG TABLET PO SCH ×2 (09:00→20:37)
[2017-08-28] MEDS: hydrALAZINE 25 MG TABLET PO SCH ×2 (09:00→20:37)
[2017-08-28] MEDS: SENNOSIDES 8.6 MG TABLET PO SCH (09:00)
--- NOTE | 2017-08-28 09:39 | PDOC ---
PULMONARY PROGRESS NOTES Subjective NO SOA Vitals Vital Signs Date Time Temp Pulse Resp B/P (MAP) Pulse Ox O2 Delivery O2 Flow Rate FiO2 08/28/17 09:00 95 Nasal Cannula 2.0 08/28/17 09:00 91 109/48 08/28/17 07:00 97.8 24 97.8 General: Alert, No acute distress Lungs: Clear Cardiovascular: S1, S2 Abdomen: Soft Neuro Exam: Alert Extremities: Other (1+EDEMA) Skin: Warm Labs Laboratory Tests Test 08/26/17 11:54 08/26/17 16:14 08/26/17 21:19 08/27/17 04:21 Glucose (Fingerstick) 169 mg/dL (70-99) 289 mg/dL (70-99) 217 mg/dL (70-99) White Blood Count 7.3 x10^3/uL (4.0-11.0) Red Blood Count 3.46 x10^6/uL (3.50-5.40) Hemoglobin 9.3 g/dL (12.0-15.5) Hematocrit 29.8 % (36.0-47.0) Mean Corpuscular Volume 86 fL (79-100) Mean Corpuscular Hemoglobin 27 pg (25-35) Mean Corpuscular Hemoglobin Concent 31 g/dL (31-37) Red Cell Distribution Width 17.7 % (11.5-14.5) Platelet Count 226 x10^3/uL (140-400) Neutrophils (%) (Auto) 66 % (31-73) Lymphocytes (%) (Auto) 25 % (24-48) Monocytes (%) (Auto) 8 % (0-9) Eosinophils (%) (Auto) 0 % (0-3) Basophils (%) (Auto) 0 % (0-3) Neutrophils # (Auto) 4.8 x10^3uL (1.8-7.7) Lymphocytes # (Auto) 1.8 x10^3/uL (1.0-4.8) Monocytes # (Auto) 0.6 x10^3/uL (0.0-1.1) Eosinophils # (Auto) 0.0 x10^3/uL (0.0-0.7) Basophils # (Auto) 0.0 x10^3/uL (0.0-0.2) Sodium Level 141 mmol/L (136-145) Potassium Level 4.4 mmol/L (3.5-5.1) Chloride Level 104 mmol/L (98-107) Carbon Dioxide Level 30 mmol/L (21-32) Anion Gap 7 (6-14) Blood Urea Nitrogen 38 mg/dL (7-20) Creatinine 1.2 mg/dL (0.6-1.0) Estimated GFR (Cockcroft-Gault) 44.9 Glucose Level 117 mg/dL (70-99) Calcium Level 9.0 mg/dL (8.5-10.1) Test 08/27/17 07:46 08/27/17 11:12 08/27/17 16:22 08/27/17 20:21 Glucose (Fingerstick) 75 mg/dL (70-99) 137 mg/dL (70-99) 259 mg/dL (70-99) 261 mg/dL (70-99) Test 08/28/17 04:40 08/28/17 07:50 White Blood Count 8.0 x10^3/uL (4.0-11.0) Red Blood Count 3.52 x10^6/uL (3.50-5.40) Hemoglobin 9.5 g/dL (12.0-15.5) Hematocrit 30.3 % (36.0-47.0) Mean Corpuscular Volume 86 fL (79-100) Mean Corpuscular Hemoglobin 27 pg (25-35) Mean Corpuscular Hemoglobin Concent 31 g/dL (31-37) Red Cell Distribution Width 17.9 % (11.5-14.5) Platelet Count 224 x10^3/uL (140-400) Neutrophils (%) (Auto) 68 % (31-73) Lymphocytes (%) (Auto) 24 % (24-48) Monocytes (%) (Auto) 8 % (0-9) Eosinophils (%) (Auto) 1 % (0-3) Basophils (%) (Auto) 0 % (0-3) Neutrophils # (Auto) 5.4 x10^3uL (1.8-7.7) Lymphocytes # (Auto) 1.9 x10^3/uL (1.0-4.8) Monocytes # (Auto) 0.6 x10^3/uL (0.0-1.1) Eosinophils # (Auto) 0.0 x10^3/uL (0.0-0.7) Basophils # (Auto) 0.0 x10^3/uL (0.0-0.2) Sodium Level 135 mmol/L (136-145) Potassium Level 4.3 mmol/L (3.5-5.1) Chloride Level 99 mmol/L (98-107) Carbon Dioxide Level 31 mmol/L (21-32) Anion Gap 5 (6-14) Blood Urea Nitrogen 47 mg/dL (7-20) Creatinine 1.5 mg/dL (0.6-1.0) Estimated GFR (Cockcroft-Gault) 34.7 Glucose Level 183 mg/dL (70-99) Calcium Level 8.9 mg/dL (8.5-10.1) Glucose (Fingerstick) 174 mg/dL (70-99) Laboratory Tests Test 08/27/17 11:12 08/27/17 16:22 08/27/17 20:21 08/28/17 04:40 Glucose (Fingerstick) 137 mg/dL (70-99) 259 mg/dL (70-99) 261 mg/dL (70-99) White Blood Count 8.0 x10^3/uL (4.0-11.0) Red Blood Count 3.52 x10^6/uL (3.50-5.40) Hemoglobin 9.5 g/dL (12.0-15.5) Hematocrit 30.3 % (36.0-47.0) Mean Corpuscular Volume 86 fL (79-100) Mean Corpuscular Hemoglobin 27 pg (25-35) Mean Corpuscular Hemoglobin Concent 31 g/dL (31-37) Red Cell Distribution Width 17.9 % (11.5-14.5) Platelet Count 224 x10^3/uL (140-400) Neutrophils (%) (Auto) 68 % (31-73) Lymphocytes (%) (Auto) 24 % (24-48) Monocytes (%) (Auto) 8 % (0-9) Eosinophils (%) (Auto) 1 % (0-3) Basophils (%) (Auto) 0 % (0-3) Neutrophils # (Auto) 5.4 x10^3uL (1.8-7.7) Lymphocytes # (Auto) 1.9 x10^3/uL (1.0-4.8) Monocytes # (Auto) 0.6 x10^3/uL (0.0-1.1) Eosinophils # (Auto) 0.0 x10^3/uL (0.0-0.7) Basophils # (Auto) 0.0 x10^3/uL (0.0-0.2) Sodium Level 135 mmol/L (136-145) Potassium Level 4.3 mmol/L (3.5-5.1) Chloride Level 99 mmol/L (98-107) Carbon Dioxide Level 31 mmol/L (21-32) Anion Gap 5 (6-14) Blood Urea Nitrogen 47 mg/dL (7-20) Creatinine 1.5 mg/dL (0.6-1.0) Estimated GFR (Cockcroft-Gault) 34.7 Glucose Level 183 mg/dL (70-99) Calcium Level 8.9 mg/dL (8.5-10.1) Test 08/28/17 07:50 Glucose (Fingerstick) 174 mg/dL (70-99) Medications Active Scripts Medications Dose Route/Sig Max Daily Dose Days Date Category Tresiba Flextouch U-200 (Insulin Degludec) 200 Unit/1 Ml Insuln.pen 20 Unit SQ HS 09/08/16 Reported Vitamin D3 (Cholecalciferol (Vitamin D3)) 1,000 Unit Tablet 1,000 Unit PO 09/08/16 Reported Famotidine 20 Mg Tablet 20 Mg PO HS 09/08/16 Reported [Compound ABH ] 05/19/16 Reported Vitamin D (Cholecalciferol (Vitamin D3)) 1,000 Unit Capsule 1 Cap PO DAILY 05/19/16 Reported Seroquel (Quetiapine Fumarate) 100 Mg Tablet 1 Tab PO DAILY 05/19/16 Reported Senokot (Sennosides) 8.6 Mg Tablet 1 Tab PO DAILY 05/19/16 Reported Remeron (Mirtazapine) 15 Mg Tablet 1 Tab PO QHS 05/19/16 Reported Quetiapine Fumarate 400 Mg Tablet 400 Mg PO HS 05/19/16 Reported Seroquel (Quetiapine Fumarate) 300 Mg Tablet 1 Tab PO DAILY 05/19/16 Reported Potassium Chloride Oral Liquid (Potassium Chloride) 40 Meq/15 Ml Liquid 40 Meq PEG DAILY 05/19/16 Reported Nystatin 15 Gm Cream..g. 1 Romelia TP BID 05/19/16 Reported Multi-Day Vitamins (Multivitamin) 1 Each Tablet 1 Tab PO DAILY 05/19/16 Reported Miralax (Polyethylene Glycol 3350) 17 Gm Powd.pack 1 Packet PO PRN DAILY PRN 05/19/16 Reported Metformin Hcl 500 Mg Tablet 1 Tab PO BID 05/19/16 Reported Mag-Oxide (Magnesium Oxide) 400 Mg Tablet 1 Tab PO DAILY 05/19/16 Reported Milk Of Magnesia (Magnesium Hydroxide) 400 Mg/5 Ml Oral.susp 30 Ml PO PRN DAILY PRN 05/19/16 Reported Levothyroxine Sodium 50 Mcg Tablet 1 Tab PO DAILY 05/19/16 Reported Hydralazine Hcl 25 Mg Tablet 1 Tab PO BID 05/19/16 Reported Glimepiride 1 Mg Tablet 1 Tab PO BID 05/19/16 Reported Furosemide 40 Mg Tablet 40 Mg PO BID 05/19/16 Reported Depakene (Valproate Sodium) 250 Mg/5 Ml Solution 1,000 Mg PO BID 05/19/16 Reported Ventolin Hfa Inhaler (Albuterol Sulfate) 18 Gm Hfa.aer.ad 2 Puff INH BID 05/19/16 Reported Acetaminophen 325 Mg Capsule 650 Mg PO PRN Q6HRS PRN 05/19/16 Reported Impression . I 1. Acute on chronic hypercapnia/ hypoxemic respiratory failure, present upon admission. improved ABG 2. Acute combination of toxic and metabolic encephalopathy, present upon admission. 3. History of schizophrenia. 4. Abnormal x-ray compatible with pneumonia, present upon admission. (right basal infiltrate) 5. Severe protein malnutrition, present upon admission. 6. Negative urine drug screen. 7. Chronic anemia. 8. Acute kidney failure. Plan . CLINICALLY IMPROVED/PROBABLE BASELINE STATUS BIPAP QHS REPEAT ABG IMPROVED ANTIBX LEVAQUIN TAPER STEROIDS NEBS OK WITH DC AMARILYS ESTEVES MD Aug 28, 2017 09:39
[2017-08-28 10:38] VITALS: BP 114/59
[2017-08-28 14:49] VITALS: BP 122/55
--- NOTE | 2017-08-28 15:32 | PDOC ---
PROGRESS NOTES Chief Complaint Chief Complaint 1. Encephalopathy, acute: toxic and metabolic. POA 2. COPD exacerbation: on steroids (tapering), nebs, suppl O2; BiPAP at night POA 3. PNA RLL: on azithro, levaquin 4. UTI: empiric coverage with above Abx. prelim cult NGTD 5. TRISTON: suspect vasomotor etiology. improving. monitor with IVF POA 6. Hyperkalemia: new. restart lasix, hold oral repletion 7. DM2: worse today. prob affected by steroids and increased PO intake. ISS, restart oral home meds, STOP metformin DUE TO RENAL FAILURE 8. Anemia: chronic inflammation. on PO iron 9. Schizophrenia: on antipsychotics 10. PCM: severe POA, although hypoalbuminemia partly due to inflammation 11. Dispo: OT/PT eval; lives [place] 12. ACUTE RENAL FAILURE 13. pLACEMENT NEEDS, D/C planning History of Present Illness History of Present Illness more alert today, visiting with sister. no c/o Vitals Vitals Vital Signs Date Time Temp Pulse Resp B/P (MAP) Pulse Ox O2 Delivery O2 Flow Rate FiO2 08/28/17 14:49 97.7 89 20 122/55 (77) 94 Nasal Cannula 2.0 97.7 Physical Exam General: Alert, Cooperative, No acute distress Heart: Regular rate Lungs: Clear Abdomen: Normal bowel sounds, No tenderness Extremities: No edema Skin: No rashes Labs LABS Laboratory Tests Test 08/27/17 16:22 08/27/17 20:21 08/28/17 04:40 08/28/17 07:50 Glucose (Fingerstick) 259 mg/dL (70-99) 261 mg/dL (70-99) 174 mg/dL (70-99) White Blood Count 8.0 x10^3/uL (4.0-11.0) Red Blood Count 3.52 x10^6/uL (3.50-5.40) Hemoglobin 9.5 g/dL (12.0-15.5) Hematocrit 30.3 % (36.0-47.0) Mean Corpuscular Volume 86 fL (79-100) Mean Corpuscular Hemoglobin 27 pg (25-35) Mean Corpuscular Hemoglobin Concent 31 g/dL (31-37) Red Cell Distribution Width 17.9 % (11.5-14.5) Platelet Count 224 x10^3/uL (140-400) Neutrophils (%) (Auto) 68 % (31-73) Lymphocytes (%) (Auto) 24 % (24-48) Monocytes (%) (Auto) 8 % (0-9) Eosinophils (%) (Auto) 1 % (0-3) Basophils (%) (Auto) 0 % (0-3) Neutrophils # (Auto) 5.4 x10^3uL (1.8-7.7) Lymphocytes # (Auto) 1.9 x10^3/uL (1.0-4.8) Monocytes # (Auto) 0.6 x10^3/uL (0.0-1.1) Eosinophils # (Auto) 0.0 x10^3/uL (0.0-0.7) Basophils # (Auto) 0.0 x10^3/uL (0.0-0.2) Sodium Level 135 mmol/L (136-145) Potassium Level 4.3 mmol/L (3.5-5.1) Chloride Level 99 mmol/L (98-107) Carbon Dioxide Level 31 mmol/L (21-32) Anion Gap 5 (6-14) Blood Urea Nitrogen 47 mg/dL (7-20) Creatinine 1.5 mg/dL (0.6-1.0) Estimated GFR (Cockcroft-Gault) 34.7 Glucose Level 183 mg/dL (70-99) Calcium Level 8.9 mg/dL (8.5-10.1) Test 08/28/17 11:01 Glucose (Fingerstick) 201 mg/dL (70-99) Assessment and Plan Assessmemt and Plan Problems Medical Problems: (1) Altered mental status Status: Acute (2) COPD exacerbation Status: Acute (3) Generalized weakness Status: Acute (4) Right lower lobe pneumonia 1. Encephalopathy, acute: toxic and metabolic. POA 2. COPD exacerbation: on steroids (tapering), nebs, suppl O2; BiPAP at night POA 3. PNA RLL: on azithro, levaquin 4. UTI: empiric coverage with above Abx. prelim cult NGTD 5. TRISTON: suspect vasomotor etiology. improving. monitor with IVF POA 6. Hyperkalemia: new. restart lasix, hold oral repletion 7. DM2: worse today. prob affected by steroids and increased PO intake. ISS, restart oral home meds, STOP metformin DUE TO RENAL FAILURE 8. Anemia: chronic inflammation. on PO iron 9. Schizophrenia: on antipsychotics 10. PCM: severe POA, although hypoalbuminemia partly due to inflammation 11. Dispo: OT/PT eval; lives [place] 12. ACUTE RENAL FAILURE 13. pLACEMENT NEEDS, D/C planning Problems: Comment Review of Relevant I have reviewed the following items rolanda (where applicable) has been applied. Labs Laboratory Tests Test 08/26/17 16:14 08/26/17 21:19 08/27/17 04:21 08/27/17 07:46 Glucose (Fingerstick) 289 mg/dL (70-99) 217 mg/dL (70-99) 75 mg/dL (70-99) White Blood Count 7.3 x10^3/uL (4.0-11.0) Red Blood Count 3.46 x10^6/uL (3.50-5.40) Hemoglobin 9.3 g/dL (12.0-15.5) Hematocrit 29.8 % (36.0-47.0) Mean Corpuscular Volume 86 fL (79-100) Mean Corpuscular Hemoglobin 27 pg (25-35) Mean Corpuscular Hemoglobin Concent 31 g/dL (31-37) Red Cell Distribution Width 17.7 % (11.5-14.5) Platelet Count 226 x10^3/uL (140-400) Neutrophils (%) (Auto) 66 % (31-73) Lymphocytes (%) (Auto) 25 % (24-48) Monocytes (%) (Auto) 8 % (0-9) Eosinophils (%) (Auto) 0 % (0-3) Basophils (%) (Auto) 0 % (0-3) Neutrophils # (Auto) 4.8 x10^3uL (1.8-7.7) Lymphocytes # (Auto) 1.8 x10^3/uL (1.0-4.8) Monocytes # (Auto) 0.6 x10^3/uL (0.0-1.1) Eosinophils # (Auto) 0.0 x10^3/uL (0.0-0.7) Basophils # (Auto) 0.0 x10^3/uL (0.0-0.2) Sodium Level 141 mmol/L (136-145) Potassium Level 4.4 mmol/L (3.5-5.1) Chloride Level 104 mmol/L (98-107) Carbon Dioxide Level 30 mmol/L (21-32) Anion Gap 7 (6-14) Blood Urea Nitrogen 38 mg/dL (7-20) Creatinine 1.2 mg/dL (0.6-1.0) Estimated GFR (Cockcroft-Gault) 44.9 Glucose Level 117 mg/dL (70-99) Calcium Level 9.0 mg/dL (8.5-10.1) Test 08/27/17 11:12 08/27/17 16:22 08/27/17 20:21 08/28/17 04:40 Glucose (Fingerstick) 137 mg/dL (70-99) 259 mg/dL (70-99) 261 mg/dL (70-99) White Blood Count 8.0 x10^3/uL (4.0-11.0) Red Blood Count 3.52 x10^6/uL (3.50-5.40) Hemoglobin 9.5 g/dL (12.0-15.5) Hematocrit 30.3 % (36.0-47.0) Mean Corpuscular Volume 86 fL (79-100) Mean Corpuscular Hemoglobin 27 pg (25-35) Mean Corpuscular Hemoglobin Concent 31 g/dL (31-37) Red Cell Distribution Width 17.9 % (11.5-14.5) Platelet Count 224 x10^3/uL (140-400) Neutrophils (%) (Auto) 68 % (31-73) Lymphocytes (%) (Auto) 24 % (24-48) Monocytes (%) (Auto) 8 % (0-9) Eosinophils (%) (Auto) 1 % (0-3) Basophils (%) (Auto) 0 % (0-3) Neutrophils # (Auto) 5.4 x10^3uL (1.8-7.7) Lymphocytes # (Auto) 1.9 x10^3/uL (1.0-4.8) Monocytes # (Auto) 0.6 x10^3/uL (0.0-1.1) Eosinophils # (Auto) 0.0 x10^3/uL (0.0-0.7) Basophils # (Auto) 0.0 x10^3/uL (0.0-0.2) Sodium Level 135 mmol/L (136-145) Potassium Level 4.3 mmol/L (3.5-5.1) Chloride Level 99 mmol/L (98-107) Carbon Dioxide Level 31 mmol/L (21-32) Anion Gap 5 (6-14) Blood Urea Nitrogen 47 mg/dL (7-20) Creatinine 1.5 mg/dL (0.6-1.0) Estimated GFR (Cockcroft-Gault) 34.7 Glucose Level 183 mg/dL (70-99) Calcium Level 8.9 mg/dL (8.5-10.1) Test 08/28/17 07:50 08/28/17 11:01 Glucose (Fingerstick) 174 mg/dL (70-99) 201 mg/dL (70-99) Laboratory Tests Test 08/27/17 16:22 08/27/17 20:21 08/28/17 04:40 08/28/17 07:50 Glucose (Fingerstick) 259 mg/dL (70-99) 261 mg/dL (70-99) 174 mg/dL (70-99) White Blood Count 8.0 x10^3/uL (4.0-11.0) Red Blood Count 3.52 x10^6/uL (3.50-5.40) Hemoglobin 9.5 g/dL (12.0-15.5) Hematocrit 30.3 % (36.0-47.0) Mean Corpuscular Volume 86 fL (79-100) Mean Corpuscular Hemoglobin 27 pg (25-35) Mean Corpuscular Hemoglobin Concent 31 g/dL (31-37) Red Cell Distribution Width 17.9 % (11.5-14.5) Platelet Count 224 x10^3/uL (140-400) Neutrophils (%) (Auto) 68 % (31-73) Lymphocytes (%) (Auto) 24 % (24-48) Monocytes (%) (Auto) 8 % (0-9) Eosinophils (%) (Auto) 1 % (0-3) Basophils (%) (Auto) 0 % (0-3) Neutrophils # (Auto) 5.4 x10^3uL (1.8-7.7) Lymphocytes # (Auto) 1.9 x10^3/uL (1.0-4.8) Monocytes # (Auto) 0.6 x10^3/uL (0.0-1.1) Eosinophils # (Auto) 0.0 x10^3/uL (0.0-0.7) Basophils # (Auto) 0.0 x10^3/uL (0.0-0.2) Sodium Level 135 mmol/L (136-145) Potassium Level 4.3 mmol/L (3.5-5.1) Chloride Level 99 mmol/L (98-107) Carbon Dioxide Level 31 mmol/L (21-32) Anion Gap 5 (6-14) Blood Urea Nitrogen 47 mg/dL (7-20) Creatinine 1.5 mg/dL (0.6-1.0) Estimated GFR (Cockcroft-Gault) 34.7 Glucose Level 183 mg/dL (70-99) Calcium Level 8.9 mg/dL (8.5-10.1) Test 08/28/17 11:01 Glucose (Fingerstick) 201 mg/dL (70-99) Microbiology 08/23/17 Blood Culture - Final, Complete NO GROWTH AFTER 5 DAYS 08/23/17 Urine Culture - Final, Complete 08/23/17 Urine Culture Result 1 (ANNMARIE) - Final, Complete Medications Current Medications Sodium Chloride 1,000 ml @ 100 mls/hr Q10H IV Last administered on 08/23/17 12:40; Start 08/23/17 at 12:19; Stop 08/23/17 at 22:18; Status DC Albuterol/ Ipratropium (Duoneb) 3 ml 1X ONCE NEB Last administered on 12:54; Start 08/23/17 at 12:30; Stop 08/23/17 at 12:31; Status DC Methylprednisolone Sodium Succinate (SOLU-Medrol 125MG VIAL) 125 mg 1X ONCE IV Last administered on 08/23/17 12:40; Start 08/23/17 at 12:30; Stop 08/23/17 at 12:31; Status DC Albuterol Sulfate (Ventolin Neb Soln) 10 mg 1X ONCE CONT NEB Last administered on 08/23/17 12:54; Start 08/23/17 at 12:30; Stop 08/23/17 at 12:31 ; Status DC Ondansetron HCl (Zofran) 4 mg PRN Q8HRS PRN IV NAUSEA/VOMITING; Start 08/23/17 at 15:00; Stop 08/24/17 at 14:59; Status DC Fentanyl Citrate (Fentanyl 2ml Vial) 50 mcg PRN Q2HR PRN IV PAIN; Start at 15:00; Stop 08/24/17 at 09:49; Status DC Sodium Chloride 1,000 ml 1454 STAT IV ; Start 08/23/17 at 14:54; Stop 08/23/17 at 15:07; Status DC Acetaminophen (Tylenol) 650 mg PRN Q4HRS PRN PO FEVER; Start 08/23/17 at 15:00 ; Stop 08/24/17 at 14:59; Status DC Albuterol/ Ipratropium (Duoneb) 3 ml RTQID NEB Last administered on 08/23/17 15:43; Start 08/23/17 at 16:00; Stop 08/23/17 at 17:29; Status DC Sodium Chloride 1,000 ml @ 1,000 mls/hr Q1H IV Last administered on 08/23/17 15:33; Start 08/23/17 at 15:15; Stop 08/23/17 at 16:14; Status DC Ceftriaxone Sodium 50 ml @ 100 mls/hr 1X ONCE IV Last administered on 15:33; Start 08/23/17 at 15:15; Stop 08/23/17 at 15:44; Status DC Azithromycin 250 ml @ 250 mls/hr 1X ONCE IV Last administered on 08/23/17 16 :15; Start 08/23/17 at 15:15; Stop 08/23/17 at 16:14; Status DC Albuterol/ Ipratropium (Duoneb) 3 ml Q4HRS NEB Last administered on 08/28/17 11:07; Start 08/23/17 at 20:00 Insulin Aspart (NovoLOG) 0-7 UNITS TIDWMEALS SQ Last administered on 12:23; Start 08/24/17 at 08:00 Dextrose (Dextrose 50%-Water Syringe) 12.5 gm PRN Q15MIN PRN IV SEE COMMENTS; Start 08/23/17 at 17:30 Levofloxacin (Levaquin) 250 mg QHS PO ; Start 08/23/17 at 18:30; Stop 08/23/17 at 19:40; Status DC Sodium Chloride 1,000 ml @ 75 mls/hr [id number] IV Last administered on 17:58; Start 08/23/17 at 18:30; Stop 08/24/17 at 10:45; Status DC Info (Do NOT chart on this placeholder) 0.5 each PRN DAILY PRN MC PRN; Start 08/23/17 at 18:45; Status Cancel Methylprednisolone Sodium Succinate (SOLU-Medrol 40MG VIAL) 60 mg Q12HR IV Last administered on 08/25/17 08:12; Start 08/23/17 at 21:00; Stop 08/25/17 at 16:30; Status DC Insulin Detemir (Levemir) 25 units 1X ONCE SQ Last administered on 08/23/17 22:36; Start 08/23/17 at 21:00; Stop 08/23/17 at 21:01; Status DC Levofloxacin/ Dextrose 50 ml @ 50 mls/hr Q24H IV Last administered on 21:04; Start 08/23/17 at 20:00; Stop 08/27/17 at 16:25; Status DC Lorazepam (Ativan) 2 mg PRN Q6HRS PRN IV ANXIETY / AGITATION Last administered on 08/24/17 04:03; Start 08/23/17 at 21:30; Stop 08/24/17 at 10:45; Status DC Nicotine (Nicoderm Cq 21mg) 1 patch DAILY TD Last administered on 08/28/17 09 :00; Start 08/23/17 at 22:00 Lorazepam (Ativan) 0.5 mg PRN Q8HRS PRN PO ANXIETY / AGITATION Last administered on 08/26/17 09:29; Start 08/24/17 at 10:45 Haloperidol Lactate (Haldol) 3 mg 1X ONCE IVP Last administered on 08/24/17 15:45; Start 08/24/17 at 15:45; Stop 08/24/17 at 15:46; Status DC Influenza Virus Vaccine Quadrival (Fluarix Quad [id number] Syringe) 0.5 ml ONCE ONCE VAX IM ; Start 08/24/17 at 17:00; Stop 08/24/17 at 17:01; Status DC Haloperidol Lactate (Haldol) 5 mg PRN Q6HRS PRN IVP AGITATION Last administered on 08/25/17 11:52; Start 08/25/17 at 11:45 Prednisone (Prednisone) 40 mg DAILY PO ; Start 08/26/17 at 09:00; Status Cancel Furosemide (Lasix) 20 mg [id number] PO Last administered on 08/28/17 14:24; Start 08/25/17 at 17:00 Hydralazine HCl (Apresoline) 25 mg BID PO Last administered on 08/28/17 09:00 ; Start 08/25/17 at 21:00 Levothyroxine Sodium (Synthroid) 50 mcg DAILY07 PO Last administered on 05:30; Start 08/26/17 at 09:00 Magnesium Oxide (Magnesium Oxide) 400 mg DAILY PO Last administered on 09:00; Start 08/25/17 at 17:00 Metformin HCl (Glucophage) 500 mg BIDWMEALS PO Last administered on 08/27/17 08:27; Start 08/25/17 at 17:00; Stop 08/27/17 at 16:03; Status DC Sennosides (Senna) 8.6 mg DAILY PO Last administered on 08/28/17 09:00; Start 08/25/17 at 17:00 Tramadol HCl (Ultram) 50 mg BID PO Last administered on 08/28/17 09:00; Start 08/25/17 at 21:00 Acetaminophen (Tylenol) 650 mg PRN Q6HRS PRN PO PAIN; Start 08/25/17 at 16:30 Insulin Detemir (Levemir) 25 units BID SQ Last administered on 08/28/17 09:00 ; Start 08/25/17 at 21:00 Potassium Chloride (KCl Oral Soln) 15 meq DAILY PO Last administered on 09:29; Start 08/26/17 at 09:00; Stop 08/26/17 at 15:35; Status DC Quetiapine Fumarate (SEROquel) 500 mg QHS PO Last administered on 08/27/17 21 :17; Start 08/25/17 at 21:00 Linagliptin (Tradjenta) 5 mg DAILY PO Last administered on 08/28/17 09:00; Start 08/26/17 at 09:00 Valproic Acid (Depakene) 1,000 mg BID PO Last administered on 08/28/17 09:00 ; Start 08/25/17 at 21:00 Lactobacillus Rhamnosus (Culturelle) 1 cap BID PO Last administered on 09:00; Start 08/25/17 at 21:00 Methylprednisolone Sodium Succinate (SOLU-Medrol 125MG VIAL) 60 mg Q12HR IV Last administered on 08/25/17 20:45; Start 08/25/17 at 21:00; Stop 08/26/17 at 09:18; Status DC Methylprednisolone Sodium Succinate (SOLU-Medrol 40MG VIAL) 30 mg Q12HR IV Last administered on 08/27/17 08:26; Start 08/26/17 at 10:00; Stop 08/27/17 at 11:11; Status DC Methylprednisolone Sodium Succinate (SOLU-Medrol 40MG VIAL) 30 mg QD IV Last administered on 08/28/17 09:00; Start 08/28/17 at 09:00 Levofloxacin (Levaquin) 250 mg Q24H PO Last administered on 08/27/17 21:16; Start 08/27/17 at 20:00 Active Scripts Active Reported Novolog Flexpen (Insulin Aspart) 100 Unit/1 Ml Insuln.pen 1 Unit SQ TIDACHC inject per sliding scale: if 200-250= 2; 251-300=4; 301-350=6;351-400=8;401-450=10; 451-500=12 subcutaneously before meals and at bedtime. Notify provider if BS>500 or BS <70. Novolog Flexpen (Insulin Aspart) 100 Unit/1 Ml Insuln.pen 5 Unit SQ TIDAC Levemir (Insulin Detemir) 100 Unit/1 Ml Vial 25 Unit SQ BID Duoneb 0.5-3(2.5) Mg/3 Ml (Albuterol/Ipratropium) 3 Ml Ampul.neb 3 Ml NEB Q4HRS PRN Januvia (Sitagliptin Phosphate) 50 Mg Tablet 1 Tab PO DAILY Furosemide 20 Mg Tablet 20 Mg PO BID Melatonin 3 Mg Tablet 1 Tab PO QHS Potassium Chloride 10 Meq Capsule.er 15 Meq PO DAILY Celestine 3 Fish Oil Softgel (Celestine-3 Fatty Acids/Fish Oil) 1 Each Capsule.dr 1 Each PO DAILY Nystatin 1 Each Powder.ea. 100,000 Each PRN Tramadol Hcl 50 Mg Tablet 1 Tab PO BID Senokot (Sennosides) 8.6 Mg Tablet 1 Tab PO DAILY Quetiapine Fumarate 400 Mg Tablet 500 Mg PO HS Metformin Hcl 500 Mg Tablet 1 Tab PO BID Mag-Oxide (Magnesium Oxide) 400 Mg Tablet 1 Tab PO DAILY Levothyroxine Sodium 50 Mcg Tablet 1 Tab PO DAILY Hydralazine Hcl 25 Mg Tablet 1 Tab PO BID Depakene (Valproate Sodium) 250 Mg/5 Ml Solution 1,000 Mg PO BID Acetaminophen 325 Mg Capsule 650 Mg PO PRN Q6HRS PRN Vitals/I & O Vital Sign - Last 24 Hours 08/27/17 08/27/17 08/27/17 08/27/17 16:11 19:00 20:06 20:07 Temp 98.1 98.1 Pulse 93 Resp 20 B/P (MAP) 82/58 (66) Pulse Ox 92 93 O2 Delivery Nasal Cannula Nasal Cannula Nasal Cannula Nasal Cannula O2 Flow Rate 3.0 2.0 2.0 08/27/17 08/27/17 08/27/17 08/27/17 21:17 21:17 23:00 23:10 Temp 97.7 97.7 Pulse 95 96 Resp 20 B/P (MAP) 135/55 116/56 (76) Pulse Ox 93 95 O2 Delivery Nasal Cannula Nasal Cannula Nasal Cannula O2 Flow Rate 2.0 2.0 08/28/17 08/28/17 08/28/17 08/28/17 03:10 04:09 07:00 07:54 Temp 96.8 97.8 96.8 97.8 Pulse 81 91 Resp 20 24 B/P (MAP) 106/53 (70) 109/48 (68) Pulse Ox 95 97 96 95 O2 Delivery Nasal Cannula Nasal Cannula Nasal Cannula Nasal Cannula O2 Flow Rate 2.0 2.0 2.0 08/28/17 08/28/17 08/28/17 08/28/17 08:00 09:00 09:00 10:23 Pulse 91 B/P (MAP) 109/48 Pulse Ox 95 95 O2 Delivery Nasal Cannula Nasal Cannula Nasal Cannula O2 Flow Rate 2.0 2.0 2.0 08/28/17 08/28/17 08/28/17 10:38 11:10 14:49 Temp 97.9 97.7 97.9 97.7 Pulse 89 89 Resp 22 20 B/P (MAP) 114/59 (77) 122/55 (77) Pulse Ox 90 94 O2 Delivery Room Air Nasal Cannula Nasal Cannula O2 Flow Rate 2.0 2.0 Intake and Output 08/27/17 08/27/17 08/28/17 15:00 23:00 07:00 Intake Total 350 ml 800 ml 480 ml Balance 350 ml 800 ml 480 ml [email or web address] WINTERS MD Aug 28, 2017 15:32
[2017-08-28 19:00] VITALS: BP 143/69
[2017-08-28] MEDS: QUEtiapine 100 MG TABLET. PO SCH (20:37)
[2017-08-28 23:00] VITALS: BP 92/40
[2017-08-29 03:00] VITALS: BP 97/37
[2017-08-29 03:22] VITALS: BP 94/40
[2017-08-29] MEDS: IPRATRPIUM/ALBUTEROL 0.5/2.5MG 3 ML NEBU. NEB SCH ×4 (04:02→15:01)
[2017-08-29 05:13] LABS: BASO % 0 % (0-3); EOS % 1 % (0-3); HEMATOCRIT 31.3 % (36.0-47.0); HEMOGLOBIN 9.9 g/dL (12.0-15.5); LYMPH % 25 % (24-48); MEAN CORPUSCULAR HEMOGLOBIN 27 pg (25-35); MEAN CORPUSCULAR HGB CONC 32 g/dL (31-37); MEAN CORPUSCULAR VOLUME 86 fL (79-100); MONO % 8 % (0-9); NEUT % 66 % (31-73); PLATELET COUNT 235 x10^3/uL (140-400); RED BLOOD COUNT 3.62 x10^6/uL (3.50-5.40); RED CELL DISTRIBUTION WIDTH 18.5 % (11.5-14.5); WHITE BLOOD COUNT 8.3 x10^3/uL (4.0-11.0)
[2017-08-29] MEDS: LEVOTHYROXINE 50 MCG TABLET PO SCH (05:17)
[2017-08-29 06:05] LABS: CALCIUM 8.6 mg/dL (8.5-10.1); CREATININE 1.5 mg/dL (0.6-1.0); GFR 34.7; POTASSIUM 4.4 mmol/L (3.5-5.1)
[2017-08-29 07:26] VITALS: BP 117/47
[2017-08-29] MEDS: INSULIN ASPART 300 UNITS/3 ML INSULN.PEN SQ SCH ×3 (07:43→17:00)
[2017-08-29] MEDS: hydrALAZINE 25 MG TABLET PO SCH (08:50)
[2017-08-29] MEDS: MAGNESIUM OXIDE 400 MG TABLET PO SCH (08:50)
[2017-08-29] MEDS: FUROSEMIDE 20 MG TABLET PO SCH ×2 (08:50→14:49)
[2017-08-29] MEDS: SENNOSIDES 8.6 MG TABLET PO SCH (08:51)
[2017-08-29] MEDS: LACTOBACILLUS RHAMNOSUS GG 1 CAPSULE. PO SCH (08:51)
[2017-08-29] MEDS: LORazepam 0.5 MG TABLET PO PRN (08:51)
[2017-08-29] MEDS: methylPREDNISolone SOD SUCC PF 40 MG/ML VIAL. IV SCH (08:51)
[2017-08-29] MEDS: traMADol 50 MG TABLET PO SCH (08:51)
[2017-08-29] MEDS: LINAGLIPTIN 5 MG TABLET PO SCH (08:51)
[2017-08-29] MEDS: VALPROIC ACID 250 MG CAPSULE. PO SCH (08:51)
[2017-08-29] MEDS: NICOTINE 21MG PATCH. TD SCH (08:52)
[2017-08-29] MEDS: HALOPERIDOL LACTATE 5 MG/ML VIAL. IVP PRN (08:52)
[2017-08-29] MEDS: INSULIN DETEMIR 300 UNITS/3 ML INSULN.PEN. SQ SCH (09:02)
--- NOTE | 2017-08-29 10:05 | PDOC ---
PULMONARY PROGRESS NOTES Subjective NO SOA Vitals Vital Signs Date Time Temp Pulse Resp B/P (MAP) Pulse Ox O2 Delivery O2 Flow Rate FiO2 08/29/17 08:51 93 Nasal Cannula 2.0 08/29/17 08:50 87 117/47 08/29/17 07:26 96.8 18 96.8 General: Alert, No acute distress Lungs: Clear Cardiovascular: S1, S2 Abdomen: Soft Neuro Exam: Alert Extremities: Other (1+EDEMA) Skin: Warm Labs Laboratory Tests Test 08/27/17 11:12 08/27/17 16:22 08/27/17 20:21 08/28/17 04:40 Glucose (Fingerstick) 137 mg/dL (70-99) 259 mg/dL (70-99) 261 mg/dL (70-99) White Blood Count 8.0 x10^3/uL (4.0-11.0) Red Blood Count 3.52 x10^6/uL (3.50-5.40) Hemoglobin 9.5 g/dL (12.0-15.5) Hematocrit 30.3 % (36.0-47.0) Mean Corpuscular Volume 86 fL (79-100) Mean Corpuscular Hemoglobin 27 pg (25-35) Mean Corpuscular Hemoglobin Concent 31 g/dL (31-37) Red Cell Distribution Width 17.9 % (11.5-14.5) Platelet Count 224 x10^3/uL (140-400) Neutrophils (%) (Auto) 68 % (31-73) Lymphocytes (%) (Auto) 24 % (24-48) Monocytes (%) (Auto) 8 % (0-9) Eosinophils (%) (Auto) 1 % (0-3) Basophils (%) (Auto) 0 % (0-3) Neutrophils # (Auto) 5.4 x10^3uL (1.8-7.7) Lymphocytes # (Auto) 1.9 x10^3/uL (1.0-4.8) Monocytes # (Auto) 0.6 x10^3/uL (0.0-1.1) Eosinophils # (Auto) 0.0 x10^3/uL (0.0-0.7) Basophils # (Auto) 0.0 x10^3/uL (0.0-0.2) Sodium Level 135 mmol/L (136-145) Potassium Level 4.3 mmol/L (3.5-5.1) Chloride Level 99 mmol/L (98-107) Carbon Dioxide Level 31 mmol/L (21-32) Anion Gap 5 (6-14) Blood Urea Nitrogen 47 mg/dL (7-20) Creatinine 1.5 mg/dL (0.6-1.0) Estimated GFR (Cockcroft-Gault) 34.7 Glucose Level 183 mg/dL (70-99) Calcium Level 8.9 mg/dL (8.5-10.1) Test 08/28/17 07:50 08/28/17 11:01 08/28/17 16:59 08/28/17 20:20 Glucose (Fingerstick) 174 mg/dL (70-99) 201 mg/dL (70-99) 224 mg/dL (70-99) 170 mg/dL (70-99) Test 08/28/17 21:34 08/29/17 04:55 08/29/17 07:39 Glucose (Fingerstick) 164 mg/dL (70-99) 84 mg/dL (70-99) White Blood Count 8.3 x10^3/uL (4.0-11.0) Red Blood Count 3.62 x10^6/uL (3.50-5.40) Hemoglobin 9.9 g/dL (12.0-15.5) Hematocrit 31.3 % (36.0-47.0) Mean Corpuscular Volume 86 fL (79-100) Mean Corpuscular Hemoglobin 27 pg (25-35) Mean Corpuscular Hemoglobin Concent 32 g/dL (31-37) Red Cell Distribution Width 18.5 % (11.5-14.5) Platelet Count 235 x10^3/uL (140-400) Neutrophils (%) (Auto) 66 % (31-73) Lymphocytes (%) (Auto) 25 % (24-48) Monocytes (%) (Auto) 8 % (0-9) Eosinophils (%) (Auto) 1 % (0-3) Basophils (%) (Auto) 0 % (0-3) Neutrophils # (Auto) 5.5 x10^3uL (1.8-7.7) Lymphocytes # (Auto) 2.0 x10^3/uL (1.0-4.8) Monocytes # (Auto) 0.7 x10^3/uL (0.0-1.1) Eosinophils # (Auto) 0.1 x10^3/uL (0.0-0.7) Basophils # (Auto) 0.0 x10^3/uL (0.0-0.2) Sodium Level 138 mmol/L (136-145) Potassium Level 4.4 mmol/L (3.5-5.1) Chloride Level 101 mmol/L (98-107) Carbon Dioxide Level 28 mmol/L (21-32) Anion Gap 9 (6-14) Blood Urea Nitrogen 58 mg/dL (7-20) Creatinine 1.5 mg/dL (0.6-1.0) Estimated GFR (Cockcroft-Gault) 34.7 Glucose Level 116 mg/dL (70-99) Calcium Level 8.6 mg/dL (8.5-10.1) Laboratory Tests Test 08/28/17 11:01 08/28/17 16:59 08/28/17 20:20 08/28/17 21:34 Glucose (Fingerstick) 201 mg/dL (70-99) 224 mg/dL (70-99) 170 mg/dL (70-99) 164 mg/dL (70-99) Test 08/29/17 04:55 08/29/17 07:39 White Blood Count 8.3 x10^3/uL (4.0-11.0) Red Blood Count 3.62 x10^6/uL (3.50-5.40) Hemoglobin 9.9 g/dL (12.0-15.5) Hematocrit 31.3 % (36.0-47.0) Mean Corpuscular Volume 86 fL (79-100) Mean Corpuscular Hemoglobin 27 pg (25-35) Mean Corpuscular Hemoglobin Concent 32 g/dL (31-37) Red Cell Distribution Width 18.5 % (11.5-14.5) Platelet Count 235 x10^3/uL (140-400) Neutrophils (%) (Auto) 66 % (31-73) Lymphocytes (%) (Auto) 25 % (24-48) Monocytes (%) (Auto) 8 % (0-9) Eosinophils (%) (Auto) 1 % (0-3) Basophils (%) (Auto) 0 % (0-3) Neutrophils # (Auto) 5.5 x10^3uL (1.8-7.7) Lymphocytes # (Auto) 2.0 x10^3/uL (1.0-4.8) Monocytes # (Auto) 0.7 x10^3/uL (0.0-1.1) Eosinophils # (Auto) 0.1 x10^3/uL (0.0-0.7) Basophils # (Auto) 0.0 x10^3/uL (0.0-0.2) Sodium Level 138 mmol/L (136-145) Potassium Level 4.4 mmol/L (3.5-5.1) Chloride Level 101 mmol/L (98-107) Carbon Dioxide Level 28 mmol/L (21-32) Anion Gap 9 (6-14) Blood Urea Nitrogen 58 mg/dL (7-20) Creatinine 1.5 mg/dL (0.6-1.0) Estimated GFR (Cockcroft-Gault) 34.7 Glucose Level 116 mg/dL (70-99) Calcium Level 8.6 mg/dL (8.5-10.1) Glucose (Fingerstick) 84 mg/dL (70-99) Medications Active Scripts Medications Dose Route/Sig Max Daily Dose Days Date Category Tresiba Flextouch U-200 (Insulin Degludec) 200 Unit/1 Ml Insuln.pen 20 Unit SQ HS 09/08/16 Reported Vitamin D3 (Cholecalciferol (Vitamin D3)) 1,000 Unit Tablet 1,000 Unit PO 09/08/16 Reported Famotidine 20 Mg Tablet 20 Mg PO HS 09/08/16 Reported [Compound ABH ] 05/19/16 Reported Vitamin D (Cholecalciferol (Vitamin D3)) 1,000 Unit Capsule 1 Cap PO DAILY 05/19/16 Reported Seroquel (Quetiapine Fumarate) 100 Mg Tablet 1 Tab PO DAILY 05/19/16 Reported Senokot (Sennosides) 8.6 Mg Tablet 1 Tab PO DAILY 05/19/16 Reported Remeron (Mirtazapine) 15 Mg Tablet 1 Tab PO QHS 05/19/16 Reported Quetiapine Fumarate 400 Mg Tablet 400 Mg PO HS 9/3/16 Reported Seroquel (Quetiapine Fumarate) 300 Mg Tablet 1 Tab PO DAILY 05/19/16 Reported Potassium Chloride Oral Liquid (Potassium Chloride) 40 Meq/15 Ml Liquid 40 Meq PEG DAILY 05/19/16 Reported Nystatin 15 Gm Cream..g. 1 Romelia TP BID 05/19/16 Reported Multi-Day Vitamins (Multivitamin) 1 Each Tablet 1 Tab PO DAILY 05/19/16 Reported Miralax (Polyethylene Glycol 3350) 17 Gm Powd.pack 1 Packet PO PRN DAILY PRN 05/19/16 Reported Metformin Hcl 500 Mg Tablet 1 Tab PO BID 05/19/16 Reported Mag-Oxide (Magnesium Oxide) 400 Mg Tablet 1 Tab PO DAILY 05/19/16 Reported Milk Of Magnesia (Magnesium Hydroxide) 400 Mg/5 Ml Oral.susp 30 Ml PO PRN DAILY PRN 05/19/16 Reported Levothyroxine Sodium 50 Mcg Tablet 1 Tab PO DAILY 05/19/16 Reported Hydralazine Hcl 25 Mg Tablet 1 Tab PO BID 05/19/16 Reported Glimepiride 1 Mg Tablet 1 Tab PO BID 05/19/16 Reported Furosemide 40 Mg Tablet 40 Mg PO BID 05/19/16 Reported Depakene (Valproate Sodium) 250 Mg/5 Ml Solution 1,000 Mg PO BID 05/19/16 Reported Ventolin Hfa Inhaler (Albuterol Sulfate) 18 Gm Hfa.aer.ad 2 Puff INH BID 05/19/16 Reported Acetaminophen 325 Mg Capsule 650 Mg PO PRN Q6HRS PRN 05/19/16 Reported Impression . I 1. Acute on chronic hypercapnia/ hypoxemic respiratory failure, present upon admission. improved ABG 2. Acute combination of toxic and metabolic encephalopathy, present upon admission. 3. History of schizophrenia. 4. Abnormal x-ray compatible with pneumonia, present upon admission. (right basal infiltrate) 5. Severe protein malnutrition, present upon admission. 6. Negative urine drug screen. 7. Chronic anemia. 8. Acute kidney failure. Plan . CLINICALLY IMPROVED/AT BASELINE STATUS BIPAP QHS REPEAT ABG IMPROVED ANTIBX LEVAQUIN PO DC IV STEROIDS TODAY. NO NEED TO ADD PO STEROIDS NEBS OK WITH DC NH/ SPOKE WITH SISTER GARCIAABBEY MILTONYOAN Winkler MD Aug 29, 2017 10:05
[2017-08-29 11:16] VITALS: BP 103/60
--- NOTE | 2017-08-29 14:29 | PDOC ---
PROGRESS NOTES Chief Complaint Chief Complaint 1. Encephalopathy, acute: toxic and metabolic. POA 2. COPD exacerbation: on steroids (tapering), nebs, suppl O2; BiPAP at night POA 3. PNA RLL: on azithro, levaquin 4. UTI: empiric coverage with above Abx. prelim cult NGTD 5. TRISTON: suspect vasomotor etiology. improving. monitor with IVF POA 6. Hyperkalemia: new. restart lasix, hold oral repletion 7. DM2: worse today. prob affected by steroids and increased PO intake. ISS, restart oral home meds, STOP metformin DUE TO RENAL FAILURE 8. Anemia: chronic inflammation. on PO iron 9. Schizophrenia: on antipsychotics 10. PCM: severe POA, although hypoalbuminemia partly due to inflammation 11. Dispo: OT/PT eval; lives [place] 12. ACUTE RENAL FAILURE 13. pLACEMENT NEEDS, D/C planning History of Present Illness History of Present Illness more alert today, visiting with sister. no c/o Vitals Vitals Vital Signs Date Time Temp Pulse Resp B/P (MAP) Pulse Ox O2 Delivery O2 Flow Rate FiO2 08/29/17 11:26 92 Nasal Cannula 2.5 08/29/17 11:16 97.7 83 18 103/60 (74) 97.7 Physical Exam General: Alert, Cooperative, No acute distress Heart: Regular rate Lungs: Clear Abdomen: Normal bowel sounds, No tenderness Extremities: No edema Skin: No rashes Labs LABS Laboratory Tests Test 08/28/17 16:59 08/28/17 20:20 08/28/17 21:34 08/29/17 04:55 Glucose (Fingerstick) 224 mg/dL (70-99) 170 mg/dL (70-99) 164 mg/dL (70-99) White Blood Count 8.3 x10^3/uL (4.0-11.0) Red Blood Count 3.62 x10^6/uL (3.50-5.40) Hemoglobin 9.9 g/dL (12.0-15.5) Hematocrit 31.3 % (36.0-47.0) Mean Corpuscular Volume 86 fL (79-100) Mean Corpuscular Hemoglobin 27 pg (25-35) Mean Corpuscular Hemoglobin Concent 32 g/dL (31-37) Red Cell Distribution Width 18.5 % (11.5-14.5) Platelet Count 235 x10^3/uL (140-400) Neutrophils (%) (Auto) 66 % (31-73) Lymphocytes (%) (Auto) 25 % (24-48) Monocytes (%) (Auto) 8 % (0-9) Eosinophils (%) (Auto) 1 % (0-3) Basophils (%) (Auto) 0 % (0-3) Neutrophils # (Auto) 5.5 x10^3uL (1.8-7.7) Lymphocytes # (Auto) 2.0 x10^3/uL (1.0-4.8) Monocytes # (Auto) 0.7 x10^3/uL (0.0-1.1) Eosinophils # (Auto) 0.1 x10^3/uL (0.0-0.7) Basophils # (Auto) 0.0 x10^3/uL (0.0-0.2) Sodium Level 138 mmol/L (136-145) Potassium Level 4.4 mmol/L (3.5-5.1) Chloride Level 101 mmol/L (98-107) Carbon Dioxide Level 28 mmol/L (21-32) Anion Gap 9 (6-14) Blood Urea Nitrogen 58 mg/dL (7-20) Creatinine 1.5 mg/dL (0.6-1.0) Estimated GFR (Cockcroft-Gault) 34.7 Glucose Level 116 mg/dL (70-99) Calcium Level 8.6 mg/dL (8.5-10.1) Test 08/29/17 07:39 08/29/17 11:08 Glucose (Fingerstick) 84 mg/dL (70-99) 141 mg/dL (70-99) Assessment and Plan Assessmemt and Plan Problems Medical Problems: (1) Altered mental status Status: Acute (2) COPD exacerbation Status: Acute (3) Generalized weakness Status: Acute (4) Right lower lobe pneumonia Status: Acute Problems: Comment Review of Relevant I have reviewed the following items rolanda (where applicable) has been applied. Labs Laboratory Tests Test 08/27/17 16:22 08/27/17 20:21 08/28/17 04:40 08/28/17 07:50 Glucose (Fingerstick) 259 mg/dL (70-99) 261 mg/dL (70-99) 174 mg/dL (70-99) White Blood Count 8.0 x10^3/uL (4.0-11.0) Red Blood Count 3.52 x10^6/uL (3.50-5.40) Hemoglobin 9.5 g/dL (12.0-15.5) Hematocrit 30.3 % (36.0-47.0) Mean Corpuscular Volume 86 fL (79-100) Mean Corpuscular Hemoglobin 27 pg (25-35) Mean Corpuscular Hemoglobin Concent 31 g/dL (31-37) Red Cell Distribution Width 17.9 % (11.5-14.5) Platelet Count 224 x10^3/uL (140-400) Neutrophils (%) (Auto) 68 % (31-73) Lymphocytes (%) (Auto) 24 % (24-48) Monocytes (%) (Auto) 8 % (0-9) Eosinophils (%) (Auto) 1 % (0-3) Basophils (%) (Auto) 0 % (0-3) Neutrophils # (Auto) 5.4 x10^3uL (1.8-7.7) Lymphocytes # (Auto) 1.9 x10^3/uL (1.0-4.8) Monocytes # (Auto) 0.6 x10^3/uL (0.0-1.1) Eosinophils # (Auto) 0.0 x10^3/uL (0.0-0.7) Basophils # (Auto) 0.0 x10^3/uL (0.0-0.2) Sodium Level 135 mmol/L (136-145) Potassium Level 4.3 mmol/L (3.5-5.1) Chloride Level 99 mmol/L (98-107) Carbon Dioxide Level 31 mmol/L (21-32) Anion Gap 5 (6-14) Blood Urea Nitrogen 47 mg/dL (7-20) Creatinine 1.5 mg/dL (0.6-1.0) Estimated GFR (Cockcroft-Gault) 34.7 Glucose Level 183 mg/dL (70-99) Calcium Level 8.9 mg/dL (8.5-10.1) Test 08/28/17 11:01 08/28/17 16:59 08/28/17 20:20 12/13/17 21:34 Glucose (Fingerstick) 201 mg/dL (70-99) 224 mg/dL (70-99) 170 mg/dL (70-99) 164 mg/dL (70-99) Test 08/29/17 04:55 08/29/17 07:39 08/29/17 11:08 White Blood Count 8.3 x10^3/uL (4.0-11.0) Red Blood Count 3.62 x10^6/uL (3.50-5.40) Hemoglobin 9.9 g/dL (12.0-15.5) Hematocrit 31.3 % (36.0-47.0) Mean Corpuscular Volume 86 fL (79-100) Mean Corpuscular Hemoglobin 27 pg (25-35) Mean Corpuscular Hemoglobin Concent 32 g/dL (31-37) Red Cell Distribution Width 18.5 % (11.5-14.5) Platelet Count 235 x10^3/uL (140-400) Neutrophils (%) (Auto) 66 % (31-73) Lymphocytes (%) (Auto) 25 % (24-48) Monocytes (%) (Auto) 8 % (0-9) Eosinophils (%) (Auto) 1 % (0-3) Basophils (%) (Auto) 0 % (0-3) Neutrophils # (Auto) 5.5 x10^3uL (1.8-7.7) Lymphocytes # (Auto) 2.0 x10^3/uL (1.0-4.8) Monocytes # (Auto) 0.7 x10^3/uL (0.0-1.1) Eosinophils # (Auto) 0.1 x10^3/uL (0.0-0.7) Basophils # (Auto) 0.0 x10^3/uL (0.0-0.2) Sodium Level 138 mmol/L (136-145) Potassium Level 4.4 mmol/L (3.5-5.1) Chloride Level 101 mmol/L (98-107) Carbon Dioxide Level 28 mmol/L (21-32) Anion Gap 9 (6-14) Blood Urea Nitrogen 58 mg/dL (7-20) Creatinine 1.5 mg/dL (0.6-1.0) Estimated GFR (Cockcroft-Gault) 34.7 Glucose Level 116 mg/dL (70-99) Calcium Level 8.6 mg/dL (8.5-10.1) Glucose (Fingerstick) 84 mg/dL (70-99) 141 mg/dL (70-99) Laboratory Tests Test 08/28/17 16:59 08/28/17 20:20 08/28/17 21:34 08/29/17 04:55 Glucose (Fingerstick) 224 mg/dL (70-99) 170 mg/dL (70-99) 164 mg/dL (70-99) White Blood Count 8.3 x10^3/uL (4.0-11.0) Red Blood Count 3.62 x10^6/uL (3.50-5.40) Hemoglobin 9.9 g/dL (12.0-15.5) Hematocrit 31.3 % (36.0-47.0) Mean Corpuscular Volume 86 fL (79-100) Mean Corpuscular Hemoglobin 27 pg (25-35) Mean Corpuscular Hemoglobin Concent 32 g/dL (31-37) Red Cell Distribution Width 18.5 % (11.5-14.5) Platelet Count 235 x10^3/uL (140-400) Neutrophils (%) (Auto) 66 % (31-73) Lymphocytes (%) (Auto) 25 % (24-48) Monocytes (%) (Auto) 8 % (0-9) Eosinophils (%) (Auto) 1 % (0-3) Basophils (%) (Auto) 0 % (0-3) Neutrophils # (Auto) 5.5 x10^3uL (1.8-7.7) Lymphocytes # (Auto) 2.0 x10^3/uL (1.0-4.8) Monocytes # (Auto) 0.7 x10^3/uL (0.0-1.1) Eosinophils # (Auto) 0.1 x10^3/uL (0.0-0.7) Basophils # (Auto) 0.0 x10^3/uL (0.0-0.2) Sodium Level 138 mmol/L (136-145) Potassium Level 4.4 mmol/L (3.5-5.1) Chloride Level 101 mmol/L (98-107) Carbon Dioxide Level 28 mmol/L (21-32) Anion Gap 9 (6-14) Blood Urea Nitrogen 58 mg/dL (7-20) Creatinine 1.5 mg/dL (0.6-1.0) Estimated GFR (Cockcroft-Gault) 34.7 Glucose Level 116 mg/dL (70-99) Calcium Level 8.6 mg/dL (8.5-10.1) Test 08/29/17 07:39 08/29/17 11:08 Glucose (Fingerstick) 84 mg/dL (70-99) 141 mg/dL (70-99) Microbiology 08/23/17 Blood Culture - Final, Complete NO GROWTH AFTER 5 DAYS 08/23/17 Urine Culture - Final, Complete 08/23/17 Urine Culture Result 1 (ANNMARIE) - Final, Complete Medications Current Medications Sodium Chloride 1,000 ml @ 100 mls/hr Q10H IV Last administered on 08/23/17 12:40; Start 08/23/17 at 12:19; Stop 08/23/17 at 22:18; Status DC Albuterol/ Ipratropium (Duoneb) 3 ml 1X ONCE NEB Last administered on 12:54; Start 08/23/17 at 12:30; Stop 08/23/17 at 12:31; Status DC Methylprednisolone Sodium Succinate (SOLU-Medrol 125MG VIAL) 125 mg 1X ONCE IV Last administered on 08/23/17 12:40; Start 08/23/17 at 12:30; Stop 08/23/17 at 12:31; Status DC Albuterol Sulfate (Ventolin Neb Soln) 10 mg 1X ONCE CONT NEB Last administered on 08/23/17 12:54; Start 08/23/17 at 12:30; Stop 08/23/17 at 12:31 ; Status DC Ondansetron HCl (Zofran) 4 mg PRN Q8HRS PRN IV NAUSEA/VOMITING; Start 08/23/17 at 15:00; Stop 08/24/17 at 14:59; Status DC Fentanyl Citrate (Fentanyl 2ml Vial) 50 mcg PRN Q2HR PRN IV PAIN; Start at 15:00; Stop 08/24/17 at 09:49; Status DC Sodium Chloride 1,000 ml 1454 STAT IV ; Start 08/23/17 at 14:54; Stop 08/23/17 at 15:07; Status DC Acetaminophen (Tylenol) 650 mg PRN Q4HRS PRN PO FEVER; Start 08/23/17 at 15:00 ; Stop 08/24/17 at 14:59; Status DC Albuterol/ Ipratropium (Duoneb) 3 ml RTQID NEB Last administered on 08/23/17 15:43; Start 08/23/17 at 16:00; Stop 08/23/17 at 17:29; Status DC Sodium Chloride 1,000 ml @ 1,000 mls/hr Q1H IV Last administered on 08/23/17 15:33; Start 08/23/17 at 15:15; Stop 08/23/17 at 16:14; Status DC Ceftriaxone Sodium 50 ml @ 100 mls/hr 1X ONCE IV Last administered on 15:33; Start 08/23/17 at 15:15; Stop 08/23/17 at 15:44; Status DC Azithromycin 250 ml @ 250 mls/hr 1X ONCE IV Last administered on 08/23/17 16 :15; Start 08/23/17 at 15:15; Stop 08/23/17 at 16:14; Status DC Albuterol/ Ipratropium (Duoneb) 3 ml Q4HRS NEB Last administered on 08/29/17 11:12; Start 08/23/17 at 20:00 Insulin Aspart (NovoLOG) 0-7 UNITS TIDWMEALS SQ Last administered on 17:25; Start 08/24/17 at 08:00 Dextrose (Dextrose 50%-Water Syringe) 12.5 gm PRN Q15MIN PRN IV SEE COMMENTS; Start 08/23/17 at 17:30 Levofloxacin (Levaquin) 250 mg QHS PO ; Start 08/23/17 at 18:30; Stop 08/23/17 at 19:40; Status DC Sodium Chloride 1,000 ml @ 75 mls/hr [id number] IV Last administered on 17:58; Start 08/23/17 at 18:30; Stop 08/24/17 at 10:45; Status DC Info (Do NOT chart on this placeholder) 0.5 each PRN DAILY PRN MC PRN; Start 08/23/17 at 18:45; Status Cancel Methylprednisolone Sodium Succinate (SOLU-Medrol 40MG VIAL) 60 mg Q12HR IV Last administered on 08/25/17 08:12; Start 08/23/17 at 21:00; Stop 08/25/17 at 16:30; Status DC Insulin Detemir (Levemir) 25 units 1X ONCE SQ Last administered on 08/23/17 22:36; Start 08/23/17 at 21:00; Stop 08/23/17 at 21:01; Status DC Levofloxacin/ Dextrose 50 ml @ 50 mls/hr Q24H IV Last administered on 21:04; Start 08/23/17 at 20:00; Stop 08/27/17 at 16:25; Status DC Lorazepam (Ativan) 2 mg PRN Q6HRS PRN IV ANXIETY / AGITATION Last administered on 08/24/17 04:03; Start 08/23/17 at 21:30; Stop 08/24/17 at 10:45; Status DC Nicotine (Nicoderm Cq 21mg) 1 patch DAILY TD Last administered on 08/29/17 08 :52; Start 08/23/17 at 22:00 Lorazepam (Ativan) 0.5 mg PRN Q8HRS PRN PO ANXIETY / AGITATION Last administered on 08/29/17 08:51; Start 08/24/17 at 10:45 Haloperidol Lactate (Haldol) 3 mg 1X ONCE IVP Last administered on 08/24/17 15:45; Start 08/24/17 at 15:45; Stop 08/24/17 at 15:46; Status DC Influenza Virus Vaccine Quadrival (Fluarix Quad [id number] Syringe) 0.5 ml ONCE ONCE VAX IM ; Start 08/24/17 at 17:00; Stop 08/24/17 at 17:01; Status DC Haloperidol Lactate (Haldol) 5 mg PRN Q6HRS PRN IVP AGITATION Last administered on 08/29/17 08:52; Start 08/25/17 at 11:45 Prednisone (Prednisone) 40 mg DAILY PO ; Start 08/26/17 at 09:00; Status Cancel Furosemide (Lasix) 20 mg [id number] PO Last administered on 08/29/17 08:50; Start 08/25/17 at 17:00 Hydralazine HCl (Apresoline) 25 mg BID PO Last administered on 08/29/17 08:50 ; Start 08/25/17 at 21:00 Levothyroxine Sodium (Synthroid) 50 mcg DAILY07 PO Last administered on 05:17; Start 08/26/17 at 09:00 Magnesium Oxide (Magnesium Oxide) 400 mg DAILY PO Last administered on 08:50; Start 08/25/17 at 17:00 Metformin HCl (Glucophage) 500 mg BIDWMEALS PO Last administered on 08/27/17 08:27; Start 08/25/17 at 17:00; Stop 08/27/17 at 16:03; Status DC Sennosides (Senna) 8.6 mg DAILY PO Last administered on 08/29/17 08:51; Start 08/25/17 at 17:00 Tramadol HCl (Ultram) 50 mg BID PO Last administered on 08/29/17 08:51; Start 08/25/17 at 21:00 Acetaminophen (Tylenol) 650 mg PRN Q6HRS PRN PO PAIN Last administered on 08/29 05:17; Start 08/25/17 at 16:30 Insulin Detemir (Levemir) 25 units BID SQ Last administered on 08/29/17 09:02 ; Start 08/25/17 at 21:00 Potassium Chloride (KCl Oral Soln) 15 meq DAILY PO Last administered on 09:29; Start 08/26/17 at 09:00; Stop 08/26/17 at 15:35; Status DC Quetiapine Fumarate (SEROquel) 500 mg QHS PO Last administered on 08/28/17 20 :37; Start 08/25/17 at 21:00 Linagliptin (Tradjenta) 5 mg DAILY PO Last administered on 08/29/17 08:51; Start 08/26/17 at 09:00 Valproic Acid (Depakene) 1,000 mg BID PO Last administered on 08/29/17 08:51 ; Start 08/25/17 at 21:00 Lactobacillus Rhamnosus (Culturelle) 1 cap BID PO Last administered on 08:51; Start 08/25/17 at 21:00 Methylprednisolone Sodium Succinate (SOLU-Medrol 125MG VIAL) 60 mg Q12HR IV Last administered on 08/25/17 20:45; Start 08/25/17 at 21:00; Stop 08/26/17 at 09:18; Status DC Methylprednisolone Sodium Succinate (SOLU-Medrol 40MG VIAL) 30 mg Q12HR IV Last administered on 08/27/17 08:26; Start 08/26/17 at 10:00; Stop 08/27/17 at 11:11; Status DC Methylprednisolone Sodium Succinate (SOLU-Medrol 40MG VIAL) 30 mg QD IV Last administered on 08/29/17 08:51; Start 08/28/17 at 09:00; Stop 08/29/17 at 10 :06; Status DC Levofloxacin (Levaquin) 250 mg Q24H PO Last administered on 08/28/17 20:14; Start 08/27/17 at 20:00 Active Scripts Active Reported Novolog Flexpen (Insulin Aspart) 100 Unit/1 Ml Insuln.pen 1 Unit SQ TIDACHC inject per sliding scale: if 200-250= 2; 251-300=4; 301-350=6;351-400=8;401-450=10; 451-500=12 subcutaneously before meals and at bedtime. Notify provider if BS>500 or BS <70. Novolog Flexpen (Insulin Aspart) 100 Unit/1 Ml Insuln.pen 5 Unit SQ TIDAC Levemir (Insulin Detemir) 100 Unit/1 Ml Vial 25 Unit SQ BID Duoneb 0.5-3(2.5) Mg/3 Ml (Albuterol/Ipratropium) 3 Ml Ampul.neb 3 Ml NEB Q4HRS PRN Januvia (Sitagliptin Phosphate) 50 Mg Tablet 1 Tab PO DAILY Furosemide 20 Mg Tablet 20 Mg PO BID Melatonin 3 Mg Tablet 1 Tab PO QHS Potassium Chloride 10 Meq Capsule.er 15 Meq PO DAILY [place] 3 Fish Oil Softgel ([place]-3 Fatty Acids/Fish Oil) 1 Each Capsule. 1 Each PO DAILY Nystatin 1 Each Powder.ea. 100,000 Each PRN Tramadol Hcl 50 Mg Tablet 1 Tab PO BID Senokot (Sennosides) 8.6 Mg Tablet 1 Tab PO DAILY Quetiapine Fumarate 400 Mg Tablet 500 Mg PO HS Metformin Hcl 500 Mg Tablet 1 Tab PO BID Mag-Oxide (Magnesium Oxide) 400 Mg Tablet 1 Tab PO DAILY Levothyroxine Sodium 50 Mcg Tablet 1 Tab PO DAILY Hydralazine Hcl 25 Mg Tablet 1 Tab PO BID Depakene (Valproate Sodium) 250 Mg/5 Ml Solution 1,000 Mg PO BID Acetaminophen 325 Mg Capsule 650 Mg PO PRN Q6HRS PRN Vitals/I & O Vital Sign - Last 24 Hours 08/28/17 08/28/17 08/28/17 08/28/17 14:49 16:13 19:00 19:28 Temp 97.7 98.8 97.7 98.8 Pulse 89 86 Resp 20 18 B/P (MAP) 122/55 (77) 143/69 (93) Pulse Ox 94 93 93 O2 Delivery Nasal Cannula Nasal Cannula Nasal Cannula Nasal Cannula O2 Flow Rate 2.0 2.0 2.0 2.0 08/28/17 08/28/17 08/28/17 08/28/17 20:00 20:37 20:37 21:37 Pulse 86 Resp 20 20 B/P (MAP) 130/63 Pulse Ox 93 O2 Delivery Nasal Cannula Nasal Cannula O2 Flow Rate 2.0 2.0 08/28/17 08/28/17 08/29/17 08/29/17 23:00 23:46 03:00 03:22 Temp 98.1 97.5 98.1 97.5 Pulse 94 95 90 Resp 18 20 B/P (MAP) 92/40 (57) 97/37 (57) 94/40 (58) Pulse Ox 91 98 O2 Delivery Nasal Cannula Nasal Cannula Nasal Cannula O2 Flow Rate 2.0 2.0 2.0 08/29/17 08/29/17 08/29/17 08/29/17 04:02 07:26 07:29 08:00 Temp 96.8 96.8 Pulse 87 Resp 18 B/P (MAP) 117/47 (70) Pulse Ox 92 93 O2 Delivery Nasal Cannula Nasal Cannula Nasal Cannula O2 Flow Rate 2.0 2.0 2.5 08/29/17 08/29/17 08/29/17 08/29/17 08:50 08:51 11:13 11:16 Temp 97.7 97.7 Pulse 87 83 Resp 18 B/P (MAP) 117/47 103/60 (74) Pulse Ox 93 93 92 O2 Delivery Nasal Cannula Nasal Cannula Nasal Cannula O2 Flow Rate 2.0 2.0 2.5 08/29/17 11:26 Pulse Ox 92 O2 Delivery Nasal Cannula O2 Flow Rate 2.5 Intake and Output 08/28/17 08/28/17 08/29/17 15:00 23:00 07:00 Intake Total 320 ml 430 ml 520 ml Balance 320 ml 430 ml 520 ml [email or web address] WINTERS MD Aug 29, 2017 14:29
--- NOTE | 2017-08-29 14:44 | PDOC3 ---
Discharge Summary Date of Admission: Aug 23, 2017 Date of Discharge: Aug 29, 2017 Admitting Diagnosis comment: DISCHARGE DIAGNOSIS 1. Encephalopathy, acute: toxic and metabolic. POA 2. COPD exacerbation: on steroids (tapering), nebs, suppl O2; BiPAP at night POA 3. PNA RLL: on azithro, levaquin 4. UTI: empiric coverage with above Abx. prelim cult NGTD 5. TRISTON: suspect vasomotor etiology. improving. POA 6. Hyperkalemia: new. restart lasix, hold oral repletion 7. DM2: . prob affected by steroids and increased PO intake. ISS, restart oral home meds, STOP metformin DUE TO RENAL FAILURE 8. Anemia: chronic inflammation. on PO iron 9. Schizophrenia: on antipsychotics 10. PCM: severe POA, although hypoalbuminemia partly due to inflammation 11. Dispo: OT/PT eval; lives in [place] 12. ACUTE RENAL FAILURE 13. pLACEMENT NEEDS, D/C planning D/C TODAY History of Present Illness History of Present Illness more alert today, visiting with sister. no c/o Vitals Vitals Vital Signs Date Time Temp Pulse Resp B/P (MAP) Pulse Ox O2 Delivery O2 Flow Rate FiO2 08/29/17 11:26 92 Nasal Cannula 2.5 08/29/17 11:16 97.7 83 18 103/60 (74) 97.7 Physical Exam General: Alert, Cooperative, No acute distress Heart: Regular rate Lungs: Clear Abdomen: Normal bowel sounds, No tenderness Extremities: No edema Skin: No rashes Problems: FINAL DIAGNOSIS Problems Medical Problems: (1) Altered mental status Status: Acute (2) COPD exacerbation Status: Acute (3) Generalized weakness Status: Acute (4) Right lower lobe pneumonia Status: Acute Brief Hospital Course Ms. Kenny is a 67 old [sex] who presented with [ ABOVE ] Discharge Medications Current Medications Sodium Chloride 1,000 ml @ 100 mls/hr Q10H IV Last administered on 08/23/17 12:40; Start 08/23/17 at 12:19; Stop 08/23/17 at 22:18; Status DC Albuterol/ Ipratropium (Duoneb) 3 ml 1X ONCE NEB Last administered on 12:54; Start 08/23/17 at 12:30; Stop 08/23/17 at 12:31; Status DC Methylprednisolone Sodium Succinate (SOLU-Medrol 125MG VIAL) 125 mg 1X ONCE IV Last administered on 08/23/17 12:40; Start 08/23/17 at 12:30; Stop 08/23/17 at 12:31; Status DC Albuterol Sulfate (Ventolin Neb Soln) 10 mg 1X ONCE CONT NEB Last administered on 08/23/17 12:54; Start 08/23/17 at 12:30; Stop 08/23/17 at 12:31 ; Status DC Ondansetron HCl (Zofran) 4 mg PRN Q8HRS PRN IV NAUSEA/VOMITING; Start 08/23/17 at 15:00; Stop 08/24/17 at 14:59; Status DC Fentanyl Citrate (Fentanyl 2ml Vial) 50 mcg PRN Q2HR PRN IV PAIN; Start at 15:00; Stop 08/24/17 at 09:49; Status DC Sodium Chloride 1,000 ml 1454 STAT IV ; Start 08/23/17 at 14:54; Stop 08/23/17 at 15:07; Status DC Acetaminophen (Tylenol) 650 mg PRN Q4HRS PRN PO FEVER; Start 08/23/17 at 15:00 ; Stop 08/24/17 at 14:59; Status DC Albuterol/ Ipratropium (Duoneb) 3 ml RTQID NEB Last administered on 08/23/17 15:43; Start 08/23/17 at 16:00; Stop 08/23/17 at 17:29; Status DC Sodium Chloride 1,000 ml @ 1,000 mls/hr Q1H IV Last administered on 08/23/17 15:33; Start 08/23/17 at 15:15; Stop 08/23/17 at 16:14; Status DC Ceftriaxone Sodium 50 ml @ 100 mls/hr 1X ONCE IV Last administered on 15:33; Start 08/23/17 at 15:15; Stop 08/23/17 at 15:44; Status DC Azithromycin 250 ml @ 250 mls/hr 1X ONCE IV Last administered on 08/23/17 16 :15; Start 08/23/17 at 15:15; Stop 08/23/17 at 16:14; Status DC Albuterol/ Ipratropium (Duoneb) 3 ml Q4HRS NEB Last administered on 08/29/17 11:12; Start 08/23/17 at 20:00 Insulin Aspart (NovoLOG) 0-7 UNITS TIDWMEALS SQ Last administered on 17:25; Start 08/24/17 at 08:00 Dextrose (Dextrose 50%-Water Syringe) 12.5 gm PRN Q15MIN PRN IV SEE COMMENTS; Start 08/23/17 at 17:30 Levofloxacin (Levaquin) 250 mg QHS PO ; Start 08/23/17 at 18:30; Stop 08/23/17 at 19:40; Status DC Sodium Chloride 1,000 ml @ 75 mls/hr [id number] IV Last administered on 17:58; Start 08/23/17 at 18:30; Stop 08/24/17 at 10:45; Status DC Info (Do NOT chart on this placeholder) 0.5 each PRN DAILY PRN MC PRN; Start 08/23/17 at 18:45; Status Cancel Methylprednisolone Sodium Succinate (SOLU-Medrol 40MG VIAL) 60 mg Q12HR IV Last administered on 08/25/17 08:12; Start 08/23/17 at 21:00; Stop 08/25/17 at 16:30; Status DC Insulin Detemir (Levemir) 25 units 1X ONCE SQ Last administered on 08/23/17 22:36; Start 08/23/17 at 21:00; Stop 08/23/17 at 21:01; Status DC Levofloxacin/ Dextrose 50 ml @ 50 mls/hr Q24H IV Last administered on 21:04; Start 08/23/17 at 20:00; Stop 08/27/17 at 16:25; Status DC Lorazepam (Ativan) 2 mg PRN Q6HRS PRN IV ANXIETY / AGITATION Last administered on 08/24/17 04:03; Start 08/23/17 at 21:30; Stop 08/24/17 at 10:45; Status DC Nicotine (Nicoderm Cq 21mg) 1 patch DAILY TD Last administered on 08/29/17 08 :52; Start 08/23/17 at 22:00 Lorazepam (Ativan) 0.5 mg PRN Q8HRS PRN PO ANXIETY / AGITATION Last administered on 08/29/17 08:51; Start 08/24/17 at 10:45 Haloperidol Lactate (Haldol) 3 mg 1X ONCE IVP Last administered on 08/24/17 15:45; Start 08/24/17 at 15:45; Stop 08/24/17 at 15:46; Status DC Influenza Virus Vaccine Quadrival (Fluarix Quad [id number] Syringe) 0.5 ml ONCE ONCE VAX IM ; Start 08/24/17 at 17:00; Stop 08/24/17 at 17:01; Status DC Haloperidol Lactate (Haldol) 5 mg PRN Q6HRS PRN IVP AGITATION Last administered on 08/29/17 08:52; Start 08/25/17 at 11:45 Prednisone (Prednisone) 40 mg DAILY PO ; Start 08/26/17 at 09:00; Status Cancel Furosemide (Lasix) 20 mg [id number] PO Last administered on 08/29/17 08:50; Start 08/25/17 at 17:00 Hydralazine HCl (Apresoline) 25 mg BID PO Last administered on 08/29/17 08:50 ; Start 08/25/17 at 21:00 Levothyroxine Sodium (Synthroid) 50 mcg DAILY07 PO Last administered on 05:17; Start 08/26/17 at 09:00 Magnesium Oxide (Magnesium Oxide) 400 mg DAILY PO Last administered on 08:50; Start 08/25/17 at 17:00 Metformin HCl (Glucophage) 500 mg BIDWMEALS PO Last administered on 08/27/17 08:27; Start 08/25/17 at 17:00; Stop 08/27/17 at 16:03; Status DC Sennosides (Senna) 8.6 mg DAILY PO Last administered on 08/29/17 08:51; Start 08/25/17 at 17:00 Tramadol HCl (Ultram) 50 mg BID PO Last administered on 08/29/17 08:51; Start 08/25/17 at 21:00 Acetaminophen (Tylenol) 650 mg PRN Q6HRS PRN PO PAIN Last administered on 08/29 05:17; Start 08/25/17 at 16:30 Insulin Detemir (Levemir) 25 units BID SQ Last administered on 08/29/17 09:02 ; Start 08/25/17 at 21:00 Potassium Chloride (KCl Oral Soln) 15 meq DAILY PO Last administered on 09:29; Start 08/26/17 at 09:00; Stop 08/26/17 at 15:35; Status DC Quetiapine Fumarate (SEROquel) 500 mg QHS PO Last administered on 08/28/17 20 :37; Start 08/25/17 at 21:00 Linagliptin (Tradjenta) 5 mg DAILY PO Last administered on 08/29/17 08:51; Start 08/26/17 at 09:00 Valproic Acid (Depakene) 1,000 mg BID PO Last administered on 08/29/17 08:51 ; Start 08/25/17 at 21:00 Lactobacillus Rhamnosus (Culturelle) 1 cap BID PO Last administered on 08:51; Start 08/25/17 at 21:00 Methylprednisolone Sodium Succinate (SOLU-Medrol 125MG VIAL) 60 mg Q12HR IV Last administered on 08/25/17 20:45; Start 08/25/17 at 21:00; Stop 08/26/17 at 09:18; Status DC Methylprednisolone Sodium Succinate (SOLU-Medrol 40MG VIAL) 30 mg Q12HR IV Last administered on 08/27/17 08:26; Start 08/26/17 at 10:00; Stop 08/27/17 at 11:11; Status DC Methylprednisolone Sodium Succinate (SOLU-Medrol 40MG VIAL) 30 mg QD IV Last administered on 08/29/17 08:51; Start 08/28/17 at 09:00; Stop 08/29/17 at 10 :06; Status DC Levofloxacin (Levaquin) 250 mg Q24H PO Last administered on 08/28/17 20:14; Start 08/27/17 at 20:00 Active Scripts Active Reported Novolog Flexpen (Insulin Aspart) 100 Unit/1 Ml Insuln.pen 1 Unit SQ TIDACHC inject per sliding scale: if 200-250= 2; 251-300=4; 301-350=6;351-400=8;401-450=10; 451-500=12 subcutaneously before meals and at bedtime. Notify provider if BS>500 or BS <70. Novolog Flexpen (Insulin Aspart) 100 Unit/1 Ml Insuln.pen 5 Unit SQ TIDAC Levemir (Insulin Detemir) 100 Unit/1 Ml Vial 25 Unit SQ BID Duoneb 0.5-3(2.5) Mg/3 Ml (Albuterol/Ipratropium) 3 Ml Ampul.neb 3 Ml NEB Q4HRS PRN Januvia (Sitagliptin Phosphate) 50 Mg Tablet 1 Tab PO DAILY Furosemide 20 Mg Tablet 20 Mg PO BID Melatonin 3 Mg Tablet 1 Tab PO QHS Potassium Chloride 10 Meq Capsule.er 15 Meq PO DAILY [place] 3 Fish Oil Softgel ([place]-3 Fatty Acids/Fish Oil) 1 Each Capsule.dr 1 Each PO DAILY Nystatin 1 Each Powder.ea. 100,000 Each PRN Tramadol Hcl 50 Mg Tablet 1 Tab PO BID Senokot (Sennosides) 8.6 Mg Tablet 1 Tab PO DAILY Quetiapine Fumarate 400 Mg Tablet 500 Mg PO HS Metformin Hcl 500 Mg Tablet 1 Tab PO BID Mag-Oxide (Magnesium Oxide) 400 Mg Tablet 1 Tab PO DAILY Levothyroxine Sodium 50 Mcg Tablet 1 Tab PO DAILY Hydralazine Hcl 25 Mg Tablet 1 Tab PO BID Depakene (Valproate Sodium) 250 Mg/5 Ml Solution 1,000 Mg PO BID Acetaminophen 325 Mg Capsule 650 Mg PO PRN Q6HRS PRN Vital Signs Vital Signs Date Time Temp Pulse Resp B/P (MAP) Pulse Ox O2 Delivery O2 Flow Rate FiO2 08/29/17 11:26 92 Nasal Cannula 2.5 08/29/17 11:16 97.7 83 18 103/60 (74) 97.7 Labs Laboratory Tests Test 08/27/17 16:22 08/27/17 20:21 08/28/17 04:40 08/28/17 07:50 Glucose (Fingerstick) 259 mg/dL (70-99) 261 mg/dL (70-99) 174 mg/dL (70-99) White Blood Count 8.0 x10^3/uL (4.0-11.0) Red Blood Count 3.52 x10^6/uL (3.50-5.40) Hemoglobin 9.5 g/dL (12.0-15.5) Hematocrit 30.3 % (36.0-47.0) Mean Corpuscular Volume 86 fL (79-100) Mean Corpuscular Hemoglobin 27 pg (25-35) Mean Corpuscular Hemoglobin Concent 31 g/dL (31-37) Red Cell Distribution Width 17.9 % (11.5-14.5) Platelet Count 224 x10^3/uL (140-400) Neutrophils (%) (Auto) 68 % (31-73) Lymphocytes (%) (Auto) 24 % (24-48) Monocytes (%) (Auto) 8 % (0-9) Eosinophils (%) (Auto) 1 % (0-3) Basophils (%) (Auto) 0 % (0-3) Neutrophils # (Auto) 5.4 x10^3uL (1.8-7.7) Lymphocytes # (Auto) 1.9 x10^3/uL (1.0-4.8) Monocytes # (Auto) 0.6 x10^3/uL (0.0-1.1) Eosinophils # (Auto) 0.0 x10^3/uL (0.0-0.7) Basophils # (Auto) 0.0 x10^3/uL (0.0-0.2) Sodium Level 135 mmol/L (136-145) Potassium Level 4.3 mmol/L (3.5-5.1) Chloride Level 99 mmol/L (98-107) Carbon Dioxide Level 31 mmol/L (21-32) Anion Gap 5 (6-14) Blood Urea Nitrogen 47 mg/dL (7-20) Creatinine 1.5 mg/dL (0.6-1.0) Estimated GFR (Cockcroft-Gault) 34.7 Glucose Level 183 mg/dL (70-99) Calcium Level 8.9 mg/dL (8.5-10.1) Test 08/28/17 11:01 08/28/17 16:59 08/28/17 20:20 08/28/17 21:34 Glucose (Fingerstick) 201 mg/dL (70-99) 224 mg/dL (70-99) 170 mg/dL (70-99) 164 mg/dL (70-99) Test 08/29/17 04:55 08/29/17 07:39 08/29/17 11:08 White Blood Count 8.3 x10^3/uL (4.0-11.0) Red Blood Count 3.62 x10^6/uL (3.50-5.40) Hemoglobin 9.9 g/dL (12.0-15.5) Hematocrit 31.3 % (36.0-47.0) Mean Corpuscular Volume 86 fL (79-100) Mean Corpuscular Hemoglobin 27 pg (25-35) Mean Corpuscular Hemoglobin Concent 32 g/dL (31-37) Red Cell Distribution Width 18.5 % (11.5-14.5) Platelet Count 235 x10^3/uL (140-400) Neutrophils (%) (Auto) 66 % (31-73) Lymphocytes (%) (Auto) 25 % (24-48) Monocytes (%) (Auto) 8 % (0-9) Eosinophils (%) (Auto) 1 % (0-3) Basophils (%) (Auto) 0 % (0-3) Neutrophils # (Auto) 5.5 x10^3uL (1.8-7.7) Lymphocytes # (Auto) 2.0 x10^3/uL (1.0-4.8) Monocytes # (Auto) 0.7 x10^3/uL (0.0-1.1) Eosinophils # (Auto) 0.1 x10^3/uL (0.0-0.7) Basophils # (Auto) 0.0 x10^3/uL (0.0-0.2) Sodium Level 138 mmol/L (136-145) Potassium Level 4.4 mmol/L (3.5-5.1) Chloride Level 101 mmol/L (98-107) Carbon Dioxide Level 28 mmol/L (21-32) Anion Gap 9 (6-14) Blood Urea Nitrogen 58 mg/dL (7-20) Creatinine 1.5 mg/dL (0.6-1.0) Estimated GFR (Cockcroft-Gault) 34.7 Glucose Level 116 mg/dL (70-99) Calcium Level 8.6 mg/dL (8.5-10.1) Glucose (Fingerstick) 84 mg/dL (70-99) 141 mg/dL (70-99) Laboratory Tests Test 08/28/17 16:59 08/28/17 20:20 08/28/17 21:34 08/29/17 04:55 Glucose (Fingerstick) 224 mg/dL (70-99) 170 mg/dL (70-99) 164 mg/dL (70-99) White Blood Count 8.3 x10^3/uL (4.0-11.0) Red Blood Count 3.62 x10^6/uL (3.50-5.40) Hemoglobin 9.9 g/dL (12.0-15.5) Hematocrit 31.3 % (36.0-47.0) Mean Corpuscular Volume 86 fL (79-100) Mean Corpuscular Hemoglobin 27 pg (25-35) Mean Corpuscular Hemoglobin Concent 32 g/dL (31-37) Red Cell Distribution Width 18.5 % (11.5-14.5) Platelet Count 235 x10^3/uL (140-400) Neutrophils (%) (Auto) 66 % (31-73) Lymphocytes (%) (Auto) 25 % (24-48) Monocytes (%) (Auto) 8 % (0-9) Eosinophils (%) (Auto) 1 % (0-3) Basophils (%) (Auto) 0 % (0-3) Neutrophils # (Auto) 5.5 x10^3uL (1.8-7.7) Lymphocytes # (Auto) 2.0 x10^3/uL (1.0-4.8) Monocytes # (Auto) 0.7 x10^3/uL (0.0-1.1) Eosinophils # (Auto) 0.1 x10^3/uL (0.0-0.7) Basophils # (Auto) 0.0 x10^3/uL (0.0-0.2) Sodium Level 138 mmol/L (136-145) Potassium Level 4.4 mmol/L (3.5-5.1) Chloride Level 101 mmol/L (98-107) Carbon Dioxide Level 28 mmol/L (21-32) Anion Gap 9 (6-14) Blood Urea Nitrogen 58 mg/dL (7-20) Creatinine 1.5 mg/dL (0.6-1.0) Estimated GFR (Cockcroft-Gault) 34.7 Glucose Level 116 mg/dL (70-99) Calcium Level 8.6 mg/dL (8.5-10.1) Test 08/29/17 07:39 08/29/17 11:08 Glucose (Fingerstick) 84 mg/dL (70-99) 141 mg/dL (70-99) Allergies Allergies Coded Allergies Type Severity Reaction Last Updated Verified Penicillins Allergy Intermediate 08/29/17 Yes lithium Allergy Intermediate 05/18/16 Yes Disposition/Orders: Other (D/C TO HALFWAY) SARBJIT WINTERS MD Aug 29, 2017 14:44
--- NOTE | 2017-08-29 14:49 | DISCH ---
DISCHARGE INSTRUCTIONS Condition on Discharge Condition on Discharge: Stable Activity After Discharge Activity Instructions for Disc: Activity as tolerated Lifting Instructions after Dis: No pulling or pushing Diet after Discharge Diet after Discharge: Cardiac Wound Incision Care Wound/Incision Care: No wound care needed Checks after Discharge Checks after discharge: Check blood press - daily Contacting the DRLauren after DC Call your doctor for: If your condition worsens Treatment/Equipment after DC Adaptive Equipment Issued: SARBJIT Riggs MD Aug 29, 2017 14:49
[2017-08-29 15:01] VITALS: BP 130/61
== END 2017-08-29 18:15 | DRG 177 ==
LOC: ER 12:09 → 5 NORTH 14:36
PROVIDERS: ADMIT Internal Medicine; ATTEND Internal Medicine
PROC: 5A09357 Assistance with Respiratory Ventilation, Less than 24 Consecutive Hours, Continuous Positive Airway Pressure (ICD-10-PCS; principal; 2017-08-23)
PROC: 5A09357 Assistance with Respiratory Ventilation, Less than 24 Consecutive Hours, Continuous Positive Airway Pressure (ICD-10-PCS; 2017-08-24)
PROC: 5A09357 Assistance with Respiratory Ventilation, Less than 24 Consecutive Hours, Continuous Positive Airway Pressure (ICD-10-PCS; 2017-08-25)
PROC: 5A09357 Assistance with Respiratory Ventilation, Less than 24 Consecutive Hours, Continuous Positive Airway Pressure (ICD-10-PCS; 2017-08-26)
DX: J15.6 Pneumonia due to other Gram-negative bacteria (principal); J96.01 Acute respiratory failure with hypoxia; N17.0 Acute kidney failure with tubular necrosis; E43 Unspecified severe protein-calorie malnutrition; J96.02 Acute respiratory failure with hypercapnia; G92 Toxic encephalopathy; D64.9 Anemia, unspecified; E11.9 Type 2 diabetes mellitus without complications; J44.0 Chronic obstructive pulmonary disease with (acute) lower respiratory infection; J44.1 Chronic obstructive pulmonary disease with (acute) exacerbation; N39.0 Urinary tract infection, site not specified; I11.0 Hypertensive heart disease with heart failure; I50.9 Heart failure, unspecified; E87.5 Hyperkalemia; E03.9 Hypothyroidism, unspecified; F17.200 Nicotine dependence, unspecified, uncomplicated; F25.9 Schizoaffective disorder, unspecified; K21.9 Gastro-esophageal reflux disease without esophagitis; M81.0 Age-related osteoporosis without current pathological fracture; Z53.20 Procedure and treatment not carried out because of patient's decision for unspecified reasons; Z66 Do not resuscitate; Z82.49 Family history of ischemic heart disease and other diseases of the circulatory system; Z96.649 Presence of unspecified artificial hip joint; K59.00 Constipation, unspecified; Z86.718 Personal history of other venous thrombosis and embolism; E66.9 Obesity, unspecified; Z68.34 Body mass index [BMI] 34.0-34.9, adult; Z88.0 Allergy status to penicillin; Z88.8 Allergy status to other drugs, medicaments and biological substances; F31.9 Bipolar disorder, unspecified
CPT/HCPCS: 36415; 36600; 70450; 71010; 80048; 80076; 80307; 81001; 82553; 82805; 82962; 83605; 83690; 83735; 83880; 84443; 84484; 85007; 85025; 85027; 85610; 85651; 85730; 86140; 87040; 87086; 87641; 93005; 93970; 94640; 94660; 94760; 96361; 96365; 96375; J0456; J0690; J1630; J1815; J1956; J2060; J2920; J2930; J7030; J7613; J7620; 99285-25; G0479

== ENCOUNTER 2017-10-14 19:25 | Inpatient (IN) | payer OTHER ==
[2017-10-14 19:34] LABS: POC GLUCOSE 182 mg/dL (70-99)
[2017-10-14] MEDS: NALOXONE 0.4 MG/ML VIAL. IV (19:45)
[2017-10-14 20:04] LABS: BASE EXCESS ABG 2 mmol/L (-3-3); HCO3 ABG 27 mmol/L (21-28); PO2 ABG 85 mmHg (65-108); SAT O2 ABG 96 % (92-99)
[2017-10-14 20:05] LABS: PCO2 ABG 45 mmHg (35-46)
[2017-10-14] MEDS ORDERED: ACETAMINOPHEN 120 MG SUPP.RECT. PR (20:30)
[2017-10-14] MEDS: ACETAMINOPHEN 650 MG SUPP.RECT. PR (20:30)
[2017-10-14 20:59] LABS: INFLUENZA A PATIENT NEGATIVE (NEGATIVE); INFLUENZA B PATIENT NEGATIVE (NEGATIVE); OBC FLU VALID
[2017-10-14 21:00] LABS: TROPONINI < 0.017 ng/mL (0.000-0.055)
[2017-10-14 21:21] LABS: BASO # 0.1 x10^3/uL (0.0-0.2); BASO % 1 % (0-3); EOS % 0 % (0-3); HEMATOCRIT 34.9 % (36.0-47.0); HEMOGLOBIN 11.1 g/dL (12.0-15.5); LYMPH # 0.5 x10^3/uL (1.0-4.8); LYMPH % 3 % (24-48); MEAN CORPUSCULAR HEMOGLOBIN 28 pg (25-35); MEAN CORPUSCULAR HGB CONC 32 g/dL (31-37); MEAN CORPUSCULAR VOLUME 88 fL (79-100); MONO # 1.9 x10^3/uL (0.0-1.1); MONO % 11 % (0-9); NEUT # 15.5 x10^3uL (1.8-7.7); NEUT % 86 % (31-73); PLATELET COUNT 202 x10^3/uL (140-400); RED BLOOD COUNT 3.95 x10^6/uL (3.50-5.40)
[2017-10-14 21:22] LABS: ADD MAN DIFF? YES
[2017-10-14 21:30] LABS: BILIRUBIN,URINE NEGATIVE (NEG); CLARITY,URINE CLEAR; COLOR,URINE YELLOW; GLUCOSE,URINE NEGATIVE (NEG); NITRITE,URINE NEGATIVE (NEG); PROTEIN,URINE NEGATIVE (NEG-TRACE); UROBILINOGEN,URINE 0.2 mg/dL (0.2 mg/dL)
[2017-10-14 21:36] LABS: AMORPHOUS SEDIMENT,UR PRESENT /HPF; BACTERIA,URINE 0 /HPF (0-FEW); HYALINE CASTS, URINE FEW /HPF; RBC,URINE OCC /HPF (0-2); SQUAMOUS EPITHELIAL CELL,UR OCC /LPF
[2017-10-14 21:37] LABS: ANION GAP 6 (6-14); BLOOD UREA NITROGEN 40 mg/dL (7-20); BUN/CREATININE RATIO 25 (6-20); CALCIUM 9.2 mg/dL (8.5-10.1); CARBON DIOXIDE 29 mmol/L (21-32); CHLORIDE 102 mmol/L (98-107); CREATININE 1.6 mg/dL (0.6-1.0); GFR 32.2; GLUCOSE 200 mg/dL (70-99); POTASSIUM 4.6 mmol/L (3.5-5.1); SODIUM 137 mmol/L (136-145)
[2017-10-14] MEDS: IV NORMAL SALINE 1000ML BAG 1,000 ML IV ×4 (21:42→23:55)
[2017-10-14 21:43] LABS: ALBUMIN 2.8 g/dL (3.4-5.0); ALBUMIN/GLOBULIN RATIO 0.6 (1.0-1.7); ALK PHOS 88 U/L (46-116); ALT (SGPT) 8 U/L (14-59); AST (SGOT) 9 U/L (15-37); TOTAL BILIRUBIN 0.2 mg/dL (0.2-1.0); TOTAL PROTEIN 7.6 g/dL (6.4-8.2)
[2017-10-14 21:47] LABS: % BANDS 31 % (0-9); % METAS 3 % (0-0); % MONOS 9 % (0-10); % SEGS 57 % (35-66)
[2017-10-14 21:48] LABS: ANISOCYTOSIS SLIGHT; PLT ESTIMATE ADEQUATE (ADEQUATE); TOXIC VACUOLATION SLIGHT
[2017-10-14 21:50] LABS: CKMB INDEX 3.8 % (0-4); CKMB MASS 0.8 ng/mL (0.0-3.6); CREATINE KINASE 21 U/L (26-192)
[2017-10-14 21:50] LABS: NT-PRO BNP 1300 pg/mL (0-124)
[2017-10-14 21:56] LABS: LACTIC ACID 1.5 mmol/L (0.4-2.0)
[2017-10-14 22:17] LABS: VAL ACID 83 mcg/mL (50-100)
[2017-10-14] MEDS ORDERED: levOFLOXacin PER PHARMACY. MC (23:15)
[2017-10-14] MEDS ORDERED: ONDANSETRON PF 4 MG/2 ML VIAL. IV (23:15)
[2017-10-14 23:55] LABS: LACTIC ACID 1.4 mmol/L (0.4-2.0)
[2017-10-15] MEDS: VANCOMYCIN 2 GM in IV DEXTROSE 5 %-0.2 % NACL 500 ML IV (00:20)
[2017-10-15] MEDS ORDERED: NOREPINEPHRIN PREMIX 250 ML IV ×2 (01:48→03:00)
[2017-10-15] MEDS ORDERED: NOREPINEPHRINE PREMIX 8 MG/250 ML BAG. IV (02:00)
[2017-10-15] MEDS: VANCOMYCIN PER PHARMACY MC (02:07)
[2017-10-15 06:08] LABS: TROPONINI < 0.017 ng/mL (0.000-0.055)
[2017-10-15 08:23] LABS: ADD MAN DIFF? NO
[2017-10-15 08:35] LABS: BASO % 0 % (0-3); EOS % 0 % (0-3); HEMATOCRIT 32.7 % (36.0-47.0); HEMOGLOBIN 9.9 g/dL (12.0-15.5); LYMPH # 0.9 x10^3/uL (1.0-4.8); LYMPH % 4 % (24-48); MEAN CORPUSCULAR HEMOGLOBIN 27 pg (25-35); MEAN CORPUSCULAR HGB CONC 30 g/dL (31-37); MEAN CORPUSCULAR VOLUME 91 fL (79-100); MONO # 2.1 x10^3/uL (0.0-1.1); MONO % 11 % (0-9); NEUT # 16.5 x10^3uL (1.8-7.7); NEUT % 85 % (31-73); PLATELET COUNT 166 x10^3/uL (140-400); RED BLOOD COUNT 3.61 x10^6/uL (3.50-5.40); RED CELL DISTRIBUTION WIDTH 20.1 % (11.5-14.5); WHITE BLOOD COUNT 19.6 x10^3/uL (4.0-11.0)
[2017-10-15 08:49] LABS: BLOOD UREA NITROGEN 35 mg/dL (7-20); CALCIUM 8.8 mg/dL (8.5-10.1); CARBON DIOXIDE 20 mmol/L (21-32); CHLORIDE 102 mmol/L (98-107); CREATININE 1.4 mg/dL (0.6-1.0); GFR 37.6; GLUCOSE 180 mg/dL (70-99)
[2017-10-15 08:55] LABS: ANION GAP 13 (6-14); POTASSIUM 4.6 mmol/L (3.5-5.1); SODIUM 135 mmol/L (136-145)
[2017-10-15] MEDS ORDERED: ALBUTEROL SULFATE 2.5 MG/3 ML NEBU. NEB (11:30)
[2017-10-15] MEDS ORDERED: VALPROIC ACID 250 MG CAPSULE. PO (12:00)
[2017-10-15] MEDS: ALBUTEROL SULFATE 2.5 MG/3 ML NEBU. NEB ×3 (12:11→20:35)
[2017-10-15 12:31] LABS: TROPONINI < 0.017 ng/mL (0.000-0.055)
[2017-10-15] MEDS: methylPREDNISolone SOD SUCC PF 125 MG/2 ML VIAL. IV ×2 (13:40→21:18)
[2017-10-15] MEDS: LEVOTHYROXINE 50 MCG TABLET PO (13:41)
[2017-10-15] MEDS: metFORMIN 500 MG TABLET PO ×2 (13:41→17:45)
[2017-10-15] MEDS: FUROSEMIDE 20 MG TABLET PO ×2 (13:41→21:19)
[2017-10-15] MEDS: MAGNESIUM OXIDE 400 MG TABLET PO (13:41)
[2017-10-15] MEDS: SENNOSIDES 8.6 MG TABLET PO (13:42)
[2017-10-15] MEDS: hydrALAZINE 25 MG TABLET PO ×2 (13:42→21:19)
[2017-10-15] MEDS: POTASSIUM CHLORIDE 20 MEQ/15 ML ORAL LIQUID. PO (13:42)
[2017-10-15] MEDS: LINAGLIPTIN 5 MG TABLET PO (13:42)
[2017-10-15] MEDS: OMEGA-3 FATTY ACIDS/FISH OIL 1,000 MG CAPSULE. PO (13:42)
[2017-10-15] MEDS: INSULIN DETEMIR 300 UNITS/3 ML INSULN.PEN. SQ ×2 (13:43→21:32)
[2017-10-15] MEDS: INSULIN ASPART 300 UNITS/3 ML INSULN.PEN SQ ×5 (13:44→21:32)
[2017-10-15 13:54] LABS: POC GLUCOSE 220 mg/dL (70-99)
[2017-10-15] MEDS: CEFEPIME HCL IV Push 1 GM VIAL. IVP ×2 (17:45→21:47)
[2017-10-15 19:22] LABS: POC GLUCOSE 172 mg/dL (70-99)
[2017-10-15] MEDS ORDERED: NYSTATIN TOPICAL POWDER 15GM BOTTLE. TP (21:00)
[2017-10-15] MEDS ORDERED: NON FORMULARY ITEM (Melatonin 1 TAB) PO (21:00)
[2017-10-15 21:11] LABS: MRSA BY PCR Negative (Negative)
[2017-10-15] MEDS: LACTOBACILLUS RHAMNOSUS GG 1 CAPSULE. PO (21:18)
[2017-10-15] MEDS: HYDROcodone/APAP 5/325MG 1 TAB TABLET PO (21:19)
[2017-10-15] MEDS: LORazepam 0.5 MG TABLET PO (21:19)
[2017-10-15] MEDS: VALPROIC ACID (AS SODIUM SALT) 250 MG/5 ML SOLUTION. PO (21:22)
[2017-10-15 21:28] LABS: POC GLUCOSE 223 mg/dL (70-99)
[2017-10-15] MEDS ORDERED: CEFEPIME HCL 1 GM in IV DEXTROSE 5% 50 ML IV (22:00)
[2017-10-16] MEDS: VANCOMYCIN 1.5 GM in IV DEXTROSE 5 %-0.2 % NACL 500 ML IV (00:01)
[2017-10-16] MEDS: CEFEPIME HCL IV Push 1 GM VIAL. IVP ×3 (05:30→21:46)
[2017-10-16] MEDS: methylPREDNISolone SOD SUCC PF 125 MG/2 ML VIAL. IV ×3 (05:30→21:45)
[2017-10-16] MEDS: LEVOTHYROXINE 50 MCG TABLET PO (05:31)
[2017-10-16] MEDS ORDERED: DEXTROSE 50% 25 GM / 50ML DISP.SYRIN. IV ×3 (07:00→07:30)
[2017-10-16] MEDS: INSULIN ASPART 300 UNITS/3 ML INSULN.PEN SQ ×7 (07:24→22:02)
[2017-10-16] MEDS: ALBUTEROL SULFATE 2.5 MG/3 ML NEBU. NEB ×4 (07:25→19:58)
[2017-10-16] MEDS: INSULIN DETEMIR 300 UNITS/3 ML INSULN.PEN. SQ ×2 (07:25→22:02)
[2017-10-16] MEDS: metFORMIN 500 MG TABLET PO ×2 (07:25→16:44)
[2017-10-16] MEDS: LINAGLIPTIN 5 MG TABLET PO (07:25)
[2017-10-16 07:33] LABS: POC GLUCOSE 135 mg/dL (70-99)
[2017-10-16 07:35] LABS: POC GLUCOSE 34 mg/dL (70-99)
[2017-10-16] MEDS: POTASSIUM CHLORIDE 20 MEQ/15 ML ORAL LIQUID. PO (08:42)
[2017-10-16] MEDS: VALPROIC ACID (AS SODIUM SALT) 250 MG/5 ML SOLUTION. PO ×2 (08:44→22:11)
[2017-10-16] MEDS: hydrALAZINE 25 MG TABLET PO ×2 (08:45→21:46)
[2017-10-16] MEDS: OMEGA-3 FATTY ACIDS/FISH OIL 1,000 MG CAPSULE. PO (08:45)
[2017-10-16] MEDS: SENNOSIDES 8.6 MG TABLET PO (08:45)
[2017-10-16] MEDS: MAGNESIUM OXIDE 400 MG TABLET PO (08:45)
[2017-10-16] MEDS: FUROSEMIDE 20 MG TABLET PO ×2 (08:45→21:45)
[2017-10-16] MEDS: LORazepam 0.5 MG TABLET PO ×2 (08:45→22:47)
[2017-10-16] MEDS: LACTOBACILLUS RHAMNOSUS GG 1 CAPSULE. PO ×2 (09:00→21:46)
[2017-10-16 11:12] LABS: POC GLUCOSE 217 mg/dL (70-99)
[2017-10-16] MEDS: VANCOMYCIN PER PHARMACY MC (13:37)
[2017-10-16] MEDS: ACETAMINOPHEN 325 MG TABLET. PO (14:11)
[2017-10-16 16:45] LABS: POC GLUCOSE 166 mg/dL (70-99)
[2017-10-16 20:44] LABS: POC GLUCOSE 284 mg/dL (70-99)
[2017-10-17 00:44] LABS: ANION GAP 5 (6-14); BLOOD UREA NITROGEN 37 mg/dL (7-20); CALCIUM 9.2 mg/dL (8.5-10.1); CARBON DIOXIDE 29 mmol/L (21-32); CHLORIDE 102 mmol/L (98-107); CREATININE 1.4 mg/dL (0.6-1.0); GFR 37.6; GLUCOSE 374 mg/dL (70-99); POTASSIUM 5.5 mmol/L (3.5-5.1); SODIUM 136 mmol/L (136-145)
[2017-10-17 00:50] LABS: VANC TR 17.3 mcg/mL (10.0-20.0)
[2017-10-17] MEDS: VANCOMYCIN 1.5 GM in IV DEXTROSE 5 %-0.2 % NACL 500 ML IV (01:31)
[2017-10-17] MEDS: VANCOMYCIN PER PHARMACY MC (01:56)
[2017-10-17] MEDS: HYDROcodone/APAP 5/325MG 1 TAB TABLET PO (03:01)
[2017-10-17] MEDS: CEFEPIME HCL IV Push 1 GM VIAL. IVP (05:23)
[2017-10-17] MEDS: methylPREDNISolone SOD SUCC PF 125 MG/2 ML VIAL. IV ×2 (05:23→13:54)
[2017-10-17] MEDS: LEVOTHYROXINE 50 MCG TABLET PO (07:38)
[2017-10-17] MEDS: INSULIN ASPART 300 UNITS/3 ML INSULN.PEN SQ ×7 (07:40→21:10)
[2017-10-17] MEDS: ALBUTEROL SULFATE 2.5 MG/3 ML NEBU. NEB ×4 (08:01→19:34)
[2017-10-17 08:04] LABS: POC GLUCOSE 255 mg/dL (70-99)
[2017-10-17] MEDS: VALPROIC ACID (AS SODIUM SALT) 250 MG/5 ML SOLUTION. PO ×2 (08:36→21:01)
[2017-10-17] MEDS: MAGNESIUM OXIDE 400 MG TABLET PO (08:36)
[2017-10-17] MEDS: metFORMIN 500 MG TABLET PO ×2 (08:37→17:13)
[2017-10-17] MEDS: LACTOBACILLUS RHAMNOSUS GG 1 CAPSULE. PO ×2 (08:38→21:00)
[2017-10-17] MEDS: hydrALAZINE 25 MG TABLET PO ×2 (08:38→21:01)
[2017-10-17] MEDS: SENNOSIDES 8.6 MG TABLET PO (08:38)
[2017-10-17] MEDS: LINAGLIPTIN 5 MG TABLET PO (08:40)
[2017-10-17] MEDS: POTASSIUM CHLORIDE 20 MEQ/15 ML ORAL LIQUID. PO (08:43)
[2017-10-17] MEDS: OMEGA-3 FATTY ACIDS/FISH OIL 1,000 MG CAPSULE. PO (08:47)
[2017-10-17] MEDS: FUROSEMIDE 20 MG TABLET PO ×2 (08:47→21:00)
[2017-10-17] MEDS: INSULIN DETEMIR 300 UNITS/3 ML INSULN.PEN. SQ ×2 (08:47→21:11)
[2017-10-17 11:34] LABS: POC GLUCOSE 249 mg/dL (70-99)
[2017-10-17] MEDS: LORazepam 0.5 MG TABLET PO (15:47)
[2017-10-17 17:15] LABS: POC GLUCOSE 275 mg/dL (70-99)
[2017-10-17 20:37] LABS: POC GLUCOSE 251 mg/dL (70-99)
[2017-10-17] MEDS: methylPREDNISolone SOD SUCC PF 40 MG/ML VIAL. IV (21:00)
[2017-10-18] MEDS: LORazepam 0.5 MG TABLET PO (00:23)
[2017-10-18 04:39] LABS: BASO % 0 % (0-3); EOS % 0 % (0-3); HEMATOCRIT 29.7 % (36.0-47.0); HEMOGLOBIN 9.6 g/dL (12.0-15.5); LYMPH # 0.6 x10^3/uL (1.0-4.8); LYMPH % 7 % (24-48); MEAN CORPUSCULAR HEMOGLOBIN 29 pg (25-35); MEAN CORPUSCULAR HGB CONC 32 g/dL (31-37); MEAN CORPUSCULAR VOLUME 89 fL (79-100); MONO # 0.2 x10^3/uL (0.0-1.1); MONO % 3 % (0-9); NEUT # 7.3 x10^3uL (1.8-7.7); NEUT % 90 % (31-73); PLATELET COUNT 165 x10^3/uL (140-400); RED BLOOD COUNT 3.36 x10^6/uL (3.50-5.40); RED CELL DISTRIBUTION WIDTH 19.4 % (11.5-14.5); WHITE BLOOD COUNT 8.1 x10^3/uL (4.0-11.0)
[2017-10-18 05:02] LABS: ADD MAN DIFF? YES
[2017-10-18 05:06] LABS: ANION GAP 7 (6-14); BLOOD UREA NITROGEN 43 mg/dL (7-20); CALCIUM 10.3 mg/dL (8.5-10.1); CARBON DIOXIDE 27 mmol/L (21-32); CHLORIDE 103 mmol/L (98-107); CREATININE 1.3 mg/dL (0.6-1.0); GLUCOSE 159 mg/dL (70-99); SODIUM 137 mmol/L (136-145)
[2017-10-18] MEDS: methylPREDNISolone SOD SUCC PF 40 MG/ML VIAL. IV ×2 (05:15→14:00)
[2017-10-18] MEDS: INSULIN ASPART 300 UNITS/3 ML INSULN.PEN SQ ×4 (07:30→12:00)
[2017-10-18] MEDS: ALBUTEROL SULFATE 2.5 MG/3 ML NEBU. NEB ×2 (07:41→12:19)
[2017-10-18 07:48] LABS: POC GLUCOSE 117 mg/dL (70-99)
[2017-10-18 08:36] LABS: % BANDS 14 % (0-9); % LYMPHS 7 % (24-48); % MONOS 2 % (0-10); % SEGS 77 % (35-66); PLT ESTIMATE ADEQUATE (ADEQUATE)
[2017-10-18 08:38] LABS: ANISOCYTOSIS SLIGHT; OVALOCYTES FEW; POLYCHROMASIA SLIGHT
[2017-10-18] MEDS: POTASSIUM CHLORIDE 20 MEQ/15 ML ORAL LIQUID. PO (09:53)
[2017-10-18] MEDS: FUROSEMIDE 20 MG TABLET PO (09:54)
[2017-10-18] MEDS: LACTOBACILLUS RHAMNOSUS GG 1 CAPSULE. PO (09:54)
[2017-10-18] MEDS: SENNOSIDES 8.6 MG TABLET PO (09:55)
[2017-10-18] MEDS: MAGNESIUM OXIDE 400 MG TABLET PO (09:55)
[2017-10-18] MEDS: hydrALAZINE 25 MG TABLET PO (09:56)
[2017-10-18] MEDS: LINAGLIPTIN 5 MG TABLET PO (09:56)
[2017-10-18] MEDS: OMEGA-3 FATTY ACIDS/FISH OIL 1,000 MG CAPSULE. PO (09:57)
[2017-10-18] MEDS: metFORMIN 500 MG TABLET PO (09:57)
[2017-10-18] MEDS: LEVOTHYROXINE 50 MCG TABLET PO (09:57)
[2017-10-18] MEDS: VALPROIC ACID (AS SODIUM SALT) 250 MG/5 ML SOLUTION. PO (10:12)
[2017-10-18] MEDS: INSULIN DETEMIR 300 UNITS/3 ML INSULN.PEN. SQ (11:19)
[2017-10-18 11:55] LABS: POC GLUCOSE 172 mg/dL (70-99)
== END 2017-10-18 15:20 | DRG 871 ==
LOC: ER 19:25 → 5 NORTH 10-15 19:46 → 1 WEST ICU 23:22
PROVIDERS: Internal Medicine
PROC: 5A09357 Assistance with Respiratory Ventilation, Less than 24 Consecutive Hours, Continuous Positive Airway Pressure (ICD-10-PCS; principal; 2017-10-15)
PROC: 5A09357 Assistance with Respiratory Ventilation, Less than 24 Consecutive Hours, Continuous Positive Airway Pressure (ICD-10-PCS; 2017-10-15)
PROC: 5A09357 Assistance with Respiratory Ventilation, Less than 24 Consecutive Hours, Continuous Positive Airway Pressure (ICD-10-PCS; 2017-10-15)
DX: A41.9 Sepsis, unspecified organism (principal); J69.0 Pneumonitis due to inhalation of food and vomit; J96.21 Acute and chronic respiratory failure with hypoxia; G92 Toxic encephalopathy; N17.9 Acute kidney failure, unspecified; E87.1 Hypo-osmolality and hyponatremia; I13.0 Hypertensive heart and chronic kidney disease with heart failure and stage 1 through stage 4 chronic kidney disease, or unspecified chronic kidney disease; J44.1 Chronic obstructive pulmonary disease with (acute) exacerbation; B96.89 Other specified bacterial agents as the cause of diseases classified elsewhere; D64.9 Anemia, unspecified; D70.9 Neutropenia, unspecified; E03.9 Hypothyroidism, unspecified; E11.22 Type 2 diabetes mellitus with diabetic chronic kidney disease; E11.65 Type 2 diabetes mellitus with hyperglycemia; E78.5 Hyperlipidemia, unspecified; F17.200 Nicotine dependence, unspecified, uncomplicated; F20.9 Schizophrenia, unspecified; F41.9 Anxiety disorder, unspecified; I50.9 Heart failure, unspecified; K21.9 Gastro-esophageal reflux disease without esophagitis; M81.0 Age-related osteoporosis without current pathological fracture; N18.9 Chronic kidney disease, unspecified; Z83.3 Family history of diabetes mellitus; Z87.440 Personal history of urinary (tract) infections; Z88.0 Allergy status to penicillin; Z96.649 Presence of unspecified artificial hip joint; Z99.3 Dependence on wheelchair; Z99.81 Dependence on supplemental oxygen; E66.9 Obesity, unspecified; Z68.33 Body mass index [BMI] 33.0-33.9, adult; F32.9 Major depressive disorder, single episode, unspecified; Z88.8 Allergy status to other drugs, medicaments and biological substances; G89.29 Other chronic pain
CPT/HCPCS: 36415; 36600; 70450; 71045; 74176; 80048; 80053; 80164; 80202; 81001; 82553; 82805; 82962; 83605; 83880; 84484; 85007; 85025; 87040; 87086; 87205; 87641; 87804; 87804-59; 93005; 94640; 94660; 94760; 96361; 96365; 96375; 99291; 99291-25; J0692; J1815; J1956; J2920; J2930; J3370; J7030; J7042; J7613